=== PATIENT | female | born 2000 | race Caucasian/White ===

== ENCOUNTER 2024-04-21 07:40 | Inpatient (IN) ==
[2024-04-21] MEDS ORDERED: OXYTOCIN 30 UNITS/NSS 30 UNITS/500 ML BAG IV PRN (08:21)
[2024-04-21] MEDS ORDERED: CALCIUM CARBONATE 500 MG CHEWABLE TAB PO PRN (08:21)
--- OUTSIDE RECORDS SUMMARY | 2024-04-21 08:45 | External Medical Summary | Summary of Care ---
Author Name Unknown Organization [facility] Address [address] [facility] [address] Phone [phone] Care Team Providers Care Legal Associate Name Role Phone Patricia Ta DO Primary Care Provider +1- [phone] Reason for Visit * Reason Comments Blood Pressure Check Encounter Details Date Type Department Care Team (Late st Contact Info) Description 04/07/2024 3:00 PM EST Nurse Only Gynecology/Obstetrics [facility] [address] [facility] [place] [address] Gw, Nurse Obgyn Injection [address] [facility] [place] [address] Blood Pressure Check Allergies No known active allergiesdocumented as of this encounter (statuses as of 04/07/2024) Medications doxylamine 12.5 MG OR TABS Take 0.5 Tablets by mouth at bedtime as needed. Active Vitamin and Mineral 28-0.8 MG Oral Tablet Take 1 Tablet by mouth every morning. Active Breast PumpIndications:B reast feeding status of mother Use as directed. 1 Each 4 Active Citalopram Hydrobromide 10 MG Oral Tablet (CeleXA) Take 1 Tablet by mouth in the morning. 30 Tablet 2 4 Active documented as of this encounter (statuses as of 04/07/2024) Active Problems Problem Noted Date Diagnosed Date Polyhydramnios in third trimester 03/18/2024 Overview (03/18/2024): Mild poly at 34 weeks. LORRAINE 24.7 cm. M ask-a-doc recommendations: In non-diabetic patients, re-screen for GDM if not done within the previous 4 weeks. Recommend ultrasound in 4 weeks for assessment of growth and fluid for mild polyhydramnios (would do weekly BPP if moderate or severe polyhydramnios). Consider delivery at 39 weeks if polyhydramnios persists. Normal 03/16/2024 Obesity in , antepartum 03/16/2024 Overview (03/16/2024): Class 1 Anxiety during 03/16/2024 Abnormal glucose tolerance in mother complicatin g 01/27/2024 Overview (02/01/2024): Passed 3 hr glucose at 27w4d Marijuana use during 09/22/2023 Overview (09/22/2023): Screen positive at [facility]. NANCY (generalized anxiety disorder) 11/17/2016 Estimated Date of Delivery Comme nts Yes 04/28/2024 Based on last me nstrual period of 07/23/2023 (Exact Date) documented as of this encounter (statuses as of 04/07/2024) Resolved Problems Problem Noted Date Diagnosed Date Resolved Date Heroin abuse 02/27/2021 05/12/2022 Depression 05/16/2020 05/12/2022 Supervision of normal first 05/16/2020 05/16/2020 Tobacco use disorder 05/16/2020 023 Migraine 08/06/2011 05/12/2022 Allergic rhinitis 05/12/2022 Celiac disease 05/12/2022 documented as of this encounter (statuses as of 04/07/2024) Immunizations Name Administration Dates Next Due DTaP Dipth/Tet/Acell Pertussis (Infanrix), Peds 11/13/2005,05/14/2000,07/18/1999,05/16,03/14/1999 H1N1 2009 Influenza, IM 02/13/2009 H1N1 2009 Influenza, Intranasal 02/13/2009 HIB PRP-OMP, 3 dose (Pedvax) 12/19/1999,05/16/19 00,03/21/1999 Hepatitis B, 0-19 yrs 05/14/2000,05/16/1999,1205/1998 IPV - Polio Virus Vaccine (Inact) 2005,05/14/2000,05/16/1999,03/14 Influenza Vaccine, Live, Int ranasal, Trivalent (Flumist) 12/24/2011,02/12/2011,02/05/2010,02/05,01/28/2008,04/08/2006 MMR - Measles/Mumps/Rubella Vaccine 05/18/2003,0 12/19/1999 Meningococcal Conjugate Vacc ine (Menactra/Menveo) 02/05/2010,02/05/2010 PPD 06/01/2023, 7,11/26/2016,11/18,11/18/2016,05/28/2015,05/28/2015 RSV Vac., Bivalent, Perfusio n F, Pf,0.5 Ml (Abrysvo) 03/31/2024 Seasonal Influenza Virus Vac cine, Unspecified Formulation 01/14/2017,03/15/2015,12/24/2011,02/12,02/05/2010,02/05/2009,01/28/2008 ,04/08/2006 Seasonal Influenza, PF, 6 M & above, IM , (FluLaval or Fluzone) 01/14/2017 Seasonal Influenza, Quad, Na lorne (Flumist) 03/15/2015 Seasonal Influenza, Trivalen t, (IIV3), PF, (Fluzone) 01/01/2024 TDAP (age 10 and older)(Boostrix) 08/06/2023, TDAP, Age 7 and older, IM (Adacel) 02/11/2024, Varicella Vaccine (Chicken Pox) 02/05/2010,02/05,12/19/1999 documented as of this encounter Social History Tobacco Use Types Packs/Day Years Used Date Smoking Tobacco: Former Cigarettes Q uit: 2021 Smokeless Tobacco: Never Comments:1 cig/day Alcohol Use Standard Drinks/Week Comments No 0 (1 standard drink = 0.6 oz pur e alcohol) PHQ-2 Answer Date Recorded PHQ Adult Total Score 4 03/28/2024 Hunger Vital Sign Answer Date Recorded Within the past 12 months, y ou worried that your food would run out before you got the money to buy more. Never true 11/27/19 24 Within the past 12 months, t he food you bought just didn't last and you didn't have money to get more. Never true 11/27/2023 [place] Depression Scale Answer Date Recorded [place] Depression Scale Total 5 03/16/2024 The thought of harming myself has occurred to me . Never 03/16/2024 Childcare Answer Date Recorded Do you feel overwhelmed with taking care of a child, family member or friend? No 11/27/2023 Does your family need help f inding childcare? (Household - for ages 0-17 years) Not on file 11/27/2023 Clothing Answer Date Recorded Have you been unable to get clothing when it was really needed? No 11/27/2023 Is your family able to get c lothes or diapers when needed? (Household - for ages 0-17 years) Not on file 11/27/2023 Personal Safety Answer Date Recorded Do you feel unsafe or have concerns for your saf ety? No 11/27/2023 Do you have concerns for you r family's safety? (Household - for ages 0-17 years) Not on file 11/27/2023 Utilities Answer Date Recorded Do you have trouble paying y our heating, water, or electric bill? No 11/27/2023 Is your family able to pay t he heat, water, or electric bill? (Household - for ages 0-17 years) Not on file 11/27/2023 Does your family have access to good internet? (Household - for ages 0-17 years) Not on file 11/27/2023 Employment Status Answer Date Recorded Are you unemployed or without regular income? Ye s 11/27/2023 Does the household have a re gular source of income? (Household - for ages 0-17 years) Not on file 11/27/2023 Social Connections Answer Date Recorded How often do you feel lonely or isolated from th ose around you? Never 11/27/2023 Financial Resource Strain Answer Date R ecorded Do you have any trouble payi ng for your medications, or do you think you might in the future? No 11/27/2023 Does your family have troubl e paying for medicine? (Household - for ages 0-17 years) Not on file 11/27/2023 Transportation Needs Answer Date Record ed READ ONLY Do you have troubl e getting a ride to medical visits or work? Never True 11/27/2023 Does your family have a hard time getting a ride to doctors visits? (Household - for ages 0-17 years) Not on file 11/27/2023 Has lack of transportation k ept you from medical appointments, meetings, work, or from getting things needed for daily living? Check all that apply. No 11/27/2023 Do you (or your family) have trouble finding or paying for a ride (transportation)? (Household - for ages 0-17 years) Not on file 11/27/2023 Housing Stability Answer Date Recorded Do you currently live in a s helter or have no steady place to sleep at night? No 11/27/2023 READ ONLY Do you think you a re at risk of becoming homeless? No 11/27/2023 Does your family worry about paying for your home or becoming homeless? (Household - for ages 0-17 years) Not on file 0 11/27/2023 Are you homeless or worried that you might be in the future? No 11/27/2023 Are you (or your family) radha eless or worried that you might be in the future? (Household - for ages 0-17 years) Not on file Food Insecurity Answer Date Recorded Do you need food for this week? No 11/27/2023 Are you able to get enough f ood for your family? (Household - for ages 0-17 years) Not on file 11/27/2023 Does your family need food t his week? (Household - for ages 0-17 years) Not on file 11/27/2023 Do you always have enough fo od for your family? (Household - for ages 0-17 years) Not on file 11/27/2023 Education Answer Date Recorded What is the highest level of school you have completed or the highest degree you have received? 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 Patient's BP was normal and urine dip negative for protein. Having some swelling today in bilaterally LE, has been at work all day and wearing compression stockings. Patient states swelling improved since last night. Denies RUIZ, RUQ pain, or visual changes. +FM Advised patient to continue pushing fluids, drinking atleast 120oz of water and monitoring symptoms. If any changes patient is to call triage. Will send message to oncall provider for additional recommendations. Gwendolyn Tamayo RN documented in this encounter Plan of Treatment Upcoming Encounters Date Type Department Care Team (Late st Contact Info) Description 04/14/2024 1:15 PM EST Imaging Radiology [facility] [address] [facility] [address] [facility] [place] [address] 04/14/2024 2:00 PM EST Office Visit Gynecology/Obstetrics [facility] [address] [facility] [place] [address] Shavonne Hensley PA-C [address] [place] [address] 05/16/2024 2:00 PM EST Telemedicine Psychiatry [facility], [address] [place] [address] Clifford Calabrese MD [address] [place] [address] 06/06/2024 5:40 PM EST Office Visit Family Practice [address], [place] [address] [place] [address] Patricia Ta DO [address] [place] [address] Scheduled Orders Name Type Priority Associated Diagnoses Order Schedule URINALYSIS OBSTETRICS, POINT OF CARE Point of Care Testing - Unsolicited Results Routine BP check Ordered: 04/07/2024 Health Maintenance Due Date Last Done Comments HPV (Gardasil) Vaccine (1 - 3-dose series) 2013 COVID-19 Vaccine ( season) 2023 Depression Screening 03/28/2025 03/28/2024 Pap Smear 06/23/2025 06/23/2022 DTap/Tdap Vaccines (10 - Td or Tdap) 02/10/2034 02/11/2024, 08/06/2023, 02/05/2010, Additional history exists MENINGOCOCCAL (MENACTRA/MENVEO) Aged Out 02/05/2010, 02/05/2010 No longer eligibl e based on patient's age to complete this topic Gonorrhea / Chlamydia Screen Discontinued 09/18/2023, 08/18/2023, 06/23/2022, Additional history exists Influenza Vaccine (FLU shot) Completed 01/01/2024, 01/14/2017, 01/14/2017, Additional history exists Pneumococcal Vaccine: Pediatrics (0 to 5 Years) and At-Risk Patients (6 to 18 Years and 19+ Years) Aged Out No longer eligib le based on patient's age to complete this topic documented as of this encounter Medical Devices Not on filedocumented as of this encounter Visit Diagnoses Diagnosis BP check- Primary Screening for hypertension documented in this encounter Care Teams Legal Associate Relationship Specialty Start Date End Date Patricia Ta DO [address] [facility] [place] [address] PCP - General Family Medicine 05/12/22 documented as of this encounter
--- OUTSIDE RECORDS SUMMARY | 2024-04-21 08:45 | External Medical Summary | Summary of Care ---
Author Name Unknown Organization [facility] Address [address] [facility] [address] Phone [phone] Care Team Providers Care Shot Grinder Operator Name Role Phone Patricia Ta DO Primary Care Provider +1- [phone] Reason for Visit * Reason Comments Outpatient Testing Encounter Details Date Type Department Care Team (Late st Contact Info) Description 04/20/2024 11:10 AM EST Laboratory Laboratory, [facility] [address] [place] [address] [facility] [address] [place] [address] Polyhydramnios in third trimester complication, single or unspecified fetus Allergies No known active allergiesdocumented as of this encounter (statuses as of 04/20/2024) Medications doxylamine 12.5 MG OR TABS Take [...] as of this encounter (statuses as of 04/20/2024) Active Problems Problem Noted Date Diagnosed Date Polyhydramnios in third trimester 03/18/2024 Overview (03/18/2024): Mild poly at 34 weeks. LORRAINE 24.7 cm. 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 Never true 11/27/2023 [place] Depression Scale Answer Date Recorded [place] Depression Scale Total 5 03/16/2024 The thought [...] 11/27/2023 Transportation Needs Answer Date Record ed Do you have trouble getting a ride to medical visits or work? (Adult - for ages 18 years and over) Not on file 11/27/2023 Does your family have a hard [...] place to sleep at night? No 11/27/2023 Do you think you are at risk of becoming homeless? 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 [place] [id number] Clifford Calabrese MD [address] [facility] [place] [address] 06/06/2024 5:40 PM EST [facility] [address] [place] [address] Patricia Ta DO [address] [place] [address] Pending Results Name Type Priority Associated Diagnoses Date /Time HEMOGLOBIN A1C Lab Routine Polyhydramnios in third trimester complication, single or unspecified fetus 04/20/2024 11:04 AM EST Health Maintenance Due Date Last Done Comments [...] as of this encounter Visit Diagnoses Diagnosis Polyhydramnios in third trimester complication, single or unspecified fetus documented in this encounter Care Teams Shot Grinder Operator Relationship Specialty Start Date End Date Patricia Ta DO [address] [facility] [place] [address] PCP - General Family Medicine 05/12/22 documented as of this encounter
--- OUTSIDE RECORDS SUMMARY | 2024-04-21 08:45 | External Medical Summary ---
Author Name Unknown Address Unknown Organization K01:[facility] [address] [place] [address] Laboratory Report Ordering Provider Test Date Status DIAMOND GRAVES 04/20/2024 11:04:20 Final Observation Date Value Abnormality Reference (Units ) Status HbA1C 04/20/2024 11:04:20 5.1 4.0-5.6 (% ) Final The use of HbA1c to monitor glycemic status is based on normal hemoglobin and HbA composition. This test should not be used in patients with abnormal hemoglobin that affects the half life of the red blood cell or the in vivo glycation rates. Glucose, estimated average 04/20/2024 11:04:20 100 <126 (mg/dL) Final Performing Location [facility] [address] [place] [address]
--- OUTSIDE RECORDS SUMMARY | 2024-04-21 08:45 | External Medical Summary | Summary of Care ---
Author Name Unknown Organization [facility] Address [address] [place] [address] Phone [phone] Care Team Providers Care Lease Analyst Name Role Phone Patricia Ta DO Primary Care Provider +1- [phone] Reason for Visit * Reason Comments Return Visit Encounter Details Date Type Department Care Team (Late st Contact Info) Description 04/14/2024 2:00 PM EST Office Visit Gynecology/Obstetric s [facility] [address] [place] [address] Shavonne Hensley PA-C [address] [place] [address] Normal in third trimester*; Marijuana use during ; Obesity in , antepartum; Anxiety during ; Polyhydramnios in third trimester complication, single or unspecified fetus; Abnormal glucose tolerance in mother complicating Allergies No known active allergiesdocumented as of this encounter (statuses as of 04/14/2024) Medications doxylamine 12.5 MG OR TABS Take 0.5 Tablets by mouth at bedtime as needed. Active Vitamin and Mineral 28-0.8 MG Oral Tablet Take 1 Tablet by mouth every morning. Active Breast PumpIndications:B reast feeding status of mother Use as directed. 1 Each 4 Active Citalopram Hydrobromide 10 MG Oral Tablet (CeleXA) Take 1 Tablet by mouth in the morning. 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/27/2021 05/12/2022 Depression 05/16/2020 05/12/2022 Supervision of normal first 05/16/2020 05/16/2020 Tobacco use disorder 05/16/2020 023 Migraine 08/06/2011 05/12/2022 Allergic rhinitis 05/12/2022 Celiac disease 05/12/2022 documented as of this encounter (statuses as of 04/14/2024) Immunizations Name Administration Dates Next Due DTaP Dipth/Tet/Acell Pertussis (Infanrix), Peds 11/13/2005,05/14/2000,07/18/1999,05/16,03/14/1999 H1N1 2009 Influenza, IM 02/13/2009 H1N1 2009 Influenza, Intranasal 02/13/2009 HIB PRP-OMP, 3 dose (Pedvax) 12/19/1999,05/16/19 00,03/21/1999 Hepatitis B, 0-19 yrs 05/14/2000,05/16/1999,1998 IPV - Polio Virus Vaccine (Inact) 2005,05/14/2000,05/16/1999,03/14 [...] money to get more. 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 on file documented as of this encounter Last Filed Vital Signs Vital Sign Reading Time Taken Comments Blood Pressure 112/72 04/14/2024 1:36 PM EST Pulse - - Temperature - - Respiratory Rate - - Oxygen Saturation - - Inhaled Oxygen Concentration - - Weight 90 kg (198 lb 6.4 oz) 04/14/2024 1:36 PM EST Height - - Body Mass Index 38.75 04/04/2024 11:50 AM EST documented in this encounter Progress Notes * Shavonne Hensley PA-C - 04/14/2024 2:00 PM EST Jesi Coleman is a 23 year old female here for her routine OB appointment at 38w0d Her Estimated Date of Delivery: 04/28/24 REVIEW OF SYSTEMS She affirms movement. Denies vaginal bleeding, LOF, contractions. + lower back pain that has woken her up from sleep at time. No regular or timeable contractions. Pain does resolve after some time. PHYSICAL EXAM Filed Vitals: 04/14/24 1336 BP: 112/72 Weight: 90 kg (198 lb 6.4 oz) +FHT 130s Fundal height 39 cm CE: 0-1cm/10%/-3 Blog Writer Documentation Patient offered deployment engineer and accepted. Name of deployment engineer: Karely Kiser CMA. ASSESSMENT/PLAN Normal in third trimester (Primary) Marijuana use during Obesity in , antepartum Anxiety during Polyhydramnios in third trimester complication, single or unspecified fetus - HEMOGLOBIN A1C; Future; Expected date: 04/14/2024 - U/S completed today for follow-up on mild polyhydramnios. Showing persistent poly with LORRAINE at 23.6 cm (95%tile), MVP 7.5 cm. - [facility] delivery 39th week if persisting. Patient agreeable. - IOL scheduled 04/21/2024 at 39w0d for polyhydramnios. - Strict return precautions given. Risks of polyhydramnios discussed. Patient has triage phone number. Abnormal glucose tolerance in mother complicating Supervision of - labor precautions and kick counts reviewed RTO for MAJO in 6 days prior to IOL Shavonne Hensley PA-C 04/14/2024 * Karely Kiser CMA - 04/14/2024 1:36 PM EST 38w0d LORRAINE: 23.6 Possible contractions starting at lower back and radiated to the front. Woken up from sleep. Requesting cervical check today documented in this encounter Plan of Treatment Upcoming Encounters Date Type Department Care Team (Late st Contact Info) Description 05/16/2024 2:00 PM EST Telemedicine Psychiatry [address] [place] [address] Clifford Calabrese MD [address] [place] [address] [place] [address] 06/06/2024 5:40 PM EST Office Visit Family Practice [place] [address] [place] [address] Patricia Ta DO [address] [place] [address] Scheduled Orders Name Type Priority Associated Diagnoses Orde r Schedule HEMOGLOBIN A1C Lab Routine Polyhydramnios in third trimester complication, single or unspecified fetus Expected: 04/14/2024 (Approximate), Expires: 04/14/2025 Health Maintenance Due Date Last Done Comments [...] as of this encounter Visit Diagnoses Diagnosis Normal in third trimester- Primary Marijuana use during Obesity in , antepartum Obesity complicating , childbirth, or the puerperium, antepartum condition or complication Anxiety during Polyhydramnios in third trimester complication, single or unspecified fetus Abnormal glucose tolerance in mother complicating Abnormal maternal glucose tolerance, complicating , childbirth, or the puerperium, unspecified as to episode of care documented in this encounter Care Teams Lease Analyst Relationship Specialty Start Date End Date Patricia Ta DO [address] [facility] [place] [address] PCP - General Family Medicine 05/12/22 documented as of this encounter
--- OUTSIDE RECORDS SUMMARY | 2024-04-21 08:45 | External Medical Summary | Summary of Care ---
Author Name Unknown Organization [facility] Address [address] [facility] [place] [address] Phone [phone] Care Team Providers Care Account Developer Name Role Phone Patricia Ta DO Primary Care Provider +1- [phone] Reason for Visit * Reason Comments Return Visit Encounter Details Date Type Department Care Team (Late st Contact Info) Description 04/20/2024 10:45 AM EST Office Visit Gynecology/Obstetric s Thom Bonilla [address] [place] [address] Pretty Younger CRNP [address] [place] [address] Normal in third trimester*; Marijuana use during ; Abnormal glucose tolerance in mother complicating ; Obesity in , antepartum; Anxiety during [...] money to get more. 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 Normal movement. Induction scheduled for tomorrow. Wants acervical check, unable to tolerate exam. Discussed what to expect with IOL. Lathe Spotter Documentation Provider requested land acquisition specialist. Name of land acquisition specialist: ABDIFATAH Mcknight * Jacquie Dimas LPN - 04/20/2024 10:42 AM EST 38w6d Denies vaginal bleeding/rom + movement No new concerns Requesting cervical check documented in this encounter Plan of Treatment Upcoming Encounters Date Type Department Care Team (Latest Contact Info) Description 04/20/2024 11:10 AM EST Laboratory Laboratory, [facility] [address] [place] [phone] Sammy Bonilla [address] [place] [address] Polyhydramnios in third trimester complication, single or unspecified fetus 05/16/2024 2:00 PM EST Telemedicine Psychiatry [facility]ul [facility] [place] [address] [facility]. [place] [address] Clifford Calabrese MD [address] [place] [address] 06/06/2024 5:40 PM EST Office Visit Family Practice [facility] [place] [address] [place] [address] Patricia Ta DO [address] [place] [address] Health Maintenance Due Date Last Done Comments HPV (Gardasil) Vaccine (1 - 3-dose series) 2013 COVID-19 Vaccine ( - 2023- season) 2023 Depression Screening 03/28/2025 03/28/2024 Pap [...] in third trimester- Primary Marijuana use during Abnormal glucose tolerance in mother complicating Abnormal maternal glucose tolerance, complicating , childbirth, or the puerperium, unspecified as to episode of care Obesity in , antepartum Obesity complicating , childbirth, or the puerperium, antepartum condition or complication Anxiety during Polyhydramnios in third trimester complication, single or unspecified fetus Polyhydramnios in third trimester complication, single or unspecified fetus documented in this encounter Care Teams Account Developer Relationship Specialty Start Date End Date Patricia Ta DO [facility] [place] [address] PCP - General Family Medicine 05/12/22 documented as of this encounter
--- OUTSIDE RECORDS SUMMARY | 2024-04-21 08:46 | External Medical Summary ---
Author Name Unknown Address Unknown Organization K01:[facility] [place] [address] [place] [address] Laboratory Report Ordering Provider Test Date Status SUZAN RYAN 03/18/2024 11:26:07 Final Observation Date Value Abnormality Reference (Units ) Status Glucose [Mass/volume] in Serum or Plasma --3 hours post dose glucose 03/18/2024 11:26:07 111 70-139 (mg/dL) Final Performing Location [facility] [place] [address] [place] [address]
--- OUTSIDE RECORDS SUMMARY | 2024-04-21 08:46 | External Medical Summary | Summary of Care ---
Author Name Unknown Organization [facility] Address [address] [facility] [place] [address] Phone [phone] Care Team Providers Care Fur Operator Name Role Phone Patricia Ta DO Primary Care Provider +1- [phone] Encounter Details Date Type Department Care Team (Late st Contact Info) Description 04/04/2024 Telephone [facility] [address] [place] [address] Zena Nicole PA-C [address] [place] [address] Allergies No known active allergiesdocumented as of [...] (Pedvax) 12/19/1999,05/16/19 00,03/21/1999 Hepatitis B, 0-19 yrs 05/14/2000,05/16/1999,05/1998 IPV - Polio Virus Vaccine (Inact) 2005,05/14/2000,05/16/1999,03/14 [...] money to get more. 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 Patient's BP was normal and urine dip negative for protein. Having some swelling today in bilaterally LE, has been at work all day and wearing compression stockings. Patient states swelling improved since last night. And RUIZ improved. Denies RUIZ, RUQ pain, or visual changes. +FM No other concerns. Advised patient to increase fluids, rest and elevate LE when able, monitor symptoms and call with any changes. She verbalized understanding. Please advise further if needed. * Telephone Encounter - Zena Nicole PA-C - 04/04/2024 12:00 PM EST Please call patient to schedule MAJO and ultrasound (2nd floor if able) for 04/14 or 04/15/24 per patient request. Thank you, Zena Nicole PA-C documented in this encounter Plan of Treatment Upcoming Encounters Date Type Department Care Team (Late st Contact Info) Description 04/07/2024 3:00 PM EST Nurse Only Gynecology/Obstetric [address] [place] [address] Gw, Nurse Obgyn Injection [address] [place] [address] Blood Pressure Check 04/14/2024 1:15 PM EST Imaging Radiology [facility] 2nd Floor, [place] [address] [place] [address] 04/14/2024 2:00 PM EST Office Visit Gynecology/Obstetric s [facility] [address] [place] [address] Shavonne Hensley PA-C [address] [place] [address] 05/16/2024 2:00 PM EST Telemedicine Psychiatry [address] [place] [address] Clifford Calabrese MD 9 [facility] [place] [address] 06/06/2024 5:40 PM EST Office Visit Family Practice [facility] [place] [address] [facility] [place] [address] Patricia aT DO [address] [place] [address] Health Maintenance Due Date Last Done Comments HPV (Gardasil) Vaccine (1 - 3-dose series) 2013 COVID-19 Vaccine (2023- season) 2023 Depression Screening 03/28/2025 03/28/2024 Pap [...] Not on filedocumented as of this encounter Care Teams Fur Operator Relationship Specialty Start Date End Date Patricia Ta DO [address] [facility] [place] [address] PCP - General Family Medicine 05/12/22 documented as of this encounter
--- OUTSIDE RECORDS SUMMARY | 2024-04-21 08:46 | External Medical Summary | Summary of Care ---
Author Name Unknown Organization [facility] Address [address] [facility] [place] [address] Phone [phone] Care Team Providers Care Beck Tender Name Role Phone Patricia Ta DO Primary Care Provider +1- [phone] Encounter Details Date Type Department Care Team (Late st Contact Info) Description 04/04/2024 Telephone [facility] [address] [place] [address] Zena Nicole PA-C [address] [place] [address] Allergies No known active allergiesdocumented as of this encounter (statuses as of 04/04/2024) Medications doxylamine 12.5 MG OR TABS Take [...] as of this encounter (statuses as of 04/04/2024) Active Problems Problem Noted Date Diagnosed Date [...] as of this encounter (statuses as of 04/04/2024) Resolved Problems Problem Noted Date Diagnosed Date Resolved Date 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 Thank you, Zena Nicole PA-C documented in this encounter Plan of Treatment Upcoming Encounters Date Type Department Care Team (Late st Contact Info) Description 04/14/2024 1:15 PM EST Imaging Radiology [facility] 2nd [facility] [address] [facility] [place] [address] 04/14/2024 2:00 PM EST Office Visit Gynecology/Obstetrics [facility] 132 [facility] [place] [address] Shavonne Hensley PA-C 132 [facility] [place] [address] 05/16/2024 2:00 PM EST Telemedicine Psychiatry [facility], [address] [place] [phone] Clifford Calabrese MD 9 [facility] [place] [phone] 06/06/2024 5:40 PM EST Office Visit [facility] [place] [address] [place] [address] Patricia Ta DO [address] [place] [address] Health Maintenance Due Date Last Done Comments [...] 5 Years) and At-Risk Patients (6 to 64 Years) Aged Out No longer eligible based on patient's age to complete this topic documented as of this encounter Medical Devices Not on filedocumented as of this encounter Care Teams Beck Tender Relationship Specialty Start Date End Date Patricia Ta DO [address] [place] [address] PCP - General Family Medicine 05/12/22 documented as of this encounter
--- OUTSIDE RECORDS SUMMARY | 2024-04-21 08:46 | External Medical Summary | Summary of Care ---
Author Name Unknown Organization [facility] Address [address] [facility] [place] [address] Phone [phone] Care Team Providers Care Crusher Name Role Phone Patricia Ta DO Primary Care Provider +1- [phone] Encounter Details Date Type Department Care Team (Late st Contact Info) Description 04/04/2024 Telephone [facility] [address] [place] [address] Zena Nicole PA-C [address] [place] [address] Allergies No known active allergiesdocumented as of [...] money to get more. 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, [address] [place] [phone] Clifford Calabrese MD 9 [facility] [place] [address] 06/06/2024 5:40 PM EST Office Visit [facility] [place] [address] [place] [address] Patricia Ta DO [address] [place] [address] Health Maintenance Due Date Last Done Comments [...] filedocumented as of this encounter Care Teams Crusher Relationship Specialty Start Date End Date Patricia Ta DO [address] [place] [address] PCP - General Family Medicine 05/12/22 documented as of this encounter
--- OUTSIDE RECORDS SUMMARY | 2024-04-21 08:46 | External Medical Summary ---
Author Name Unknown Address Unknown Organization K01:[facility] [place] [facility] [address] [place] [address] Laboratory Report Ordering Provider Test Date Status MAHOGANY WALSH 03/31/2024 11:25:46 Final Observation Date Value Abnormality Reference (Units ) Status Streptococcus agalactiae DNA [Presence] in Specimen by FELIZ with probe detection 03/31/2024 11:25:46 Negative Negative Final No Group B Streptococcus det ected by culture-enhanced PCR (amplified probe). GBS GBSCT - [facility] 03/31/2024 11:25:46 0.0 Final GBS SPCCT - [facility] 03/31/2024 11:25:46 31.2 Final Performing Location [facility] [place] [address] [place] [address]
--- OUTSIDE RECORDS SUMMARY | 2024-04-21 08:46 | External Medical Summary | Summary of Care ---
Author Name Unknown Organization [facility] Address [address] [place] [address] Phone [phone] Care Team Providers Care Lamination Spinner Name Role Phone Patricia Ta DO Primary Care Provider +1- [phone] Reason for Visit * Reason Comments Outpatient Testing Encounter Details Date Type Department Care Team ([facility] st Contact Info) Description 03/18/2024 8:00 AM EST Laboratory Laboratory [facility] [place] [address] [facility] [place] [phone] [place], Lab [facility] [address] [place] [address] Polyhydramnios in third trimester complication, fetus 1 of multiple gestation Allergies No known active allergiesdocumented as of this encounter (statuses as of 03/18/2024) Medications Vitamin B-6 25 MG Oral Tablet Take 1 Tablet by mouth in the morning. Active doxylamine 12.5 MG OR TABS Take 0.5 Tablets by mouth at bedtime as needed. Active Vitamin and Mineral 28-0.8 MG Oral Tablet Take 1 Tablet by mouth every morning. Active Citalopram Hydrobromide 10 MG Oral Tablet (CeleXA) Take 1 Tablet by mouth in the morning. 30 Tablet 2 4 Active Breast PumpIndications:B reast feeding status of mother Use as directed. 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 05/12/2022 Depression 05/16/2020 05/12/2022 Supervision of normal first 05/16/2020 05/16/2020 Tobacco use disorder 05/16/2020 023 Migraine 08/06/2011 05/12/2022 Allergic rhinitis 05/12/2022 Celiac disease 05/12/2022 documented as of this encounter (statuses as of 03/18/2024) Immunizations Name Administration Dates Next Due DTaP [...] Vacc ine (Menactra/Menveo) 02/05/2010,02/05/2010 PPD 06/01/2023, 7,11/26/2016,11/18,11/18/2016,05/28/2015,05/28/2015 Seasonal Influenza Virus Vac cine, Unspecified Formulation [...] Answer Date Recorded PHQ Adult Total Score 6 04/17/2023 Hunger Vital Sign Answer Date Recorded Within the past 12 months, y ou worried that your food would run out before you got the money to buy more. Never true 11/27/19 24 Within the past 12 months, t he food you bought just didn't last and you didn't have money to get more. 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 documented as of this encounter Plan of Treatment Upcoming Encounters Date Type Department Care Team (Late st Contact Info) Description 03/28/2024 12:00 PM EST Telemedicine Psychiatry [place] [address] [place] [phone] Clifford Calabrese MD [address] [place] [phone] 03/31/2024 10:45 AM EST Office Visit Gynecology/Obstetrics [facility] [address] [place] [address] Jose Alejandro Perez MD [address] [place] [address] 04/04/2024 11:45 AM EST Office Visit Gynecology/Obstetrics [facility] [address] [place] [address] Zena Nicole PA-C [address] [place] [address] 06/06/2024 5:40 PM EST Office Visit Family Practice [place] [address] [place] [address] Patricia Ta DO [address] [place] [address] Pending Results Name Type Priority Associated Diagnoses Date /Time GESTATIONAL GLUCOSE TOLERANCE, 3 HOUR Lab Routine Polyhydramnios in third trimester complication, fetus 1 of multiple gestation 03/18/2024 8:25 AM EST 100-G GESTATIONAL GLUCOSE, FASTING Lab Routine Polyhydramnios in third trimester complication, fetus 1 of multiple gestation 03/18/2024 8:25 AM EST 100-G GESTATIONAL GLUCOSE, 1 HOUR Lab Routine Polyhydramnios in third trimester complication, fetus 1 of multiple gestation 03/18/2024 9:26 AM EST 100-G GESTATIONAL GLUCOSE, 2 HOUR Lab Routine Polyhydramnios in third trimester complication, fetus 1 of multiple gestation 03/18/2024 10:31 AM EST 100-G GESTATIONAL GLUCOSE, 3 HOUR Lab Routine Polyhydramnios in third trimester complication, fetus 1 of multiple gestation 03/18/2024 11:26 AM EST Health Maintenance Due Date Last Done Comments HPV (Gardasil) Vaccine (1 - 3-dose series) 2013 COVID-19 Vaccine ( season) 2023 Depression Screening 04/17/2024 04/17/2023 Pap Smear 06/23/2025 06/23/2022 DTap/Tdap Vaccines (10 [...] Diagnoses Diagnosis Polyhydramnios in third trimester complication, fetus 1 of multiple gestation documented in this encounter Care Teams Lamination Spinner Relationship Specialty Start Date End Date Patricia Ta DO [address] [facility] [place] [address] PCP - General Family Medicine 05/12/22 documented as of this encounter
--- OUTSIDE RECORDS SUMMARY | 2024-04-21 08:46 | External Medical Summary | Summary of Care ---
Author Name Unknown Organization [facility] Address [address] [place] [address] Phone [phone] Care Team Providers Care Differential Tester Name Role Phone Patricia Ta DO Primary Care Provider +1- [phone] Reason for Visit * Reason Comments Return Visit Encounter Details Date Type Department Care Team (Late st Contact Info) Description 03/31/2024 10:45 AM EST Office Visit Gynecology/Obstetric [facility] [address] [place] [address] Jose Alejandro Perez MD [address] [place] [phone] Marijuana use during *; Abnormal glucose tolerance in mother complicating ; Normal in third trimester; Obesity in , antepartum; Anxiety during ; Polyhydramnios in third trimester complication, single or unspecified fetus; Need for RSV immunization Allergies No known active allergiesdocumented as of this encounter (statuses as of 03/31/2024) Medications doxylamine 12.5 MG OR TABS Take 0.5 Tablets by mouth at bedtime as needed. Active Vitamin and Mineral 28-0.8 MG Oral Tablet Take 1 Tablet by mouth every morning. Active Breast PumpIndications:B reast feeding status of mother Use as directed. 1 Each Active Citalopram Hydrobromide 10 MG Oral Tablet (CeleXA) Take 1 Tablet by mouth in the morning. 30 Tablet 2 Active Vitamin B-6 25 MG Oral Tablet Take 1 Tablet by mouth in the morning. 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 Patient underwent vaginal beta strep screening. Patient also had pelvic exam. This revealed vertex presentation. Minus one station. Cervix was posterior and closed. Patient is feeling good movement without any complaints. documented in this encounter Nursing Notes * Jacquie Dimas LPN - 03/31/2024 11:19 AM EST Patient here for RSV injection. Patient doing well no complaints. Injection given IM as ordered. Patient tolerated well. Patient to follow up as directed. Patient instructed to call if any complications. Patient verbalized understanding of instructions given and her follow up appt for 1 week Injection site: Left Deltoid Medication Source: Dispensed stock medication documented in this encounter Plan of Treatment Upcoming Encounters Date Type Department Care Team (Late st Contact Info) Description 04/04/2024 11:45 AM EST Office Visit Gynecology/Obstetrics [facility] [address] [place] [address] Zena Nicole PA-C [address] [place] [address] 05/16/2024 2:00 PM EST Telemedicine Psychiatry [facility] [address] [place] [phone] Clifford Calabrese MD [address] [place] [phone] 06/06/2024 5:40 PM EST [facility] [facility] [place] [phone] Patricia Ta DO [address] [place] [address] Pending Results Name Type Priority Associated Diagnoses Date /Time GROUP B STREP CULTURE/PCR Lab Routine Normal in third trimester 03/31/2024 11:25 AM EST Health Maintenance Due Date Last [...] as of this encounter Visit Diagnoses Diagnosis Marijuana use during - Primary Abnormal glucose tolerance in mother complicating Abnormal maternal glucose tolerance, complicating , childbirth, or the puerperium, unspecified as to episode of care Normal in third trimester Obesity in , antepartum Obesity complicating , childbirth, or the puerperium, antepartum condition or complication Anxiety during Polyhydramnios in third trimester complication, single or unspecified fetus Need for RSV immunization Need for prophylactic vaccination and inoculation against respiratory syncytial virus documented in this encounter Care Teams Differential Tester Relationship Specialty Start Date End Date Patricia Ta DO [address] [facility] [place] [address] PCP - General Family Medicine 05/12/22 documented as of this encounter
--- OUTSIDE RECORDS SUMMARY | 2024-04-21 08:46 | External Medical Summary | Summary of Care ---
Author Name Unknown Organization [facility] Address [address] [place] [address] Phone [phone] Care Team Providers Care Auto Adjudication Specialist Name Role Phone Patricia Ta DO Primary Care Provider [phone] Reason for Visit * - Authorized Specialty Diagnoses / Procedures Referred By Contumesh t Referred To Contact Referral ID Status Reason Start Date Expiration Date V isits Requested Visits Authorized [id number] Authorized 01/12/2024 01/10/2025 [id number] Encounter Details Date Type Department Care Team (Late st Contact Info) Description 03/28/2024 12:00 PM EST Telemedicine Psychiatry [facility] [place] [address] [place] [address] Clifford Calabrese MD [address] [place] [address] CHARLES (generalized anxiety disorder)*; Opioid dependence in remission (HCC); Methamphetamine use disorder, mild, in sustained remission (HCC); 35 weeks gestation of Allergies No known active allergiesdocumented as of this encounter (statuses as of 03/28/2024) Medications Vitamin B-6 25 MG Oral Tablet [...] the morning. 30 Tablet 2 4 Active Citalopram Hydrobromide 10 MG Oral Tablet (CeleXA) Take 1 Tablet by mouth in the morning. 30 Tablet 2 4 03/28/20 24 Discontinu ed(Refill) documented as of this encounter (statuses as of 03/28/2024) Active Problems Problem Noted Date Diagnosed Date [...] 09/22/2023 Overview (09/22/2023): Screen positive at [facility]. CHARLES (generalized anxiety disorder) 11/17/2016 Estimated Date of Delivery Comme nts Yes 04/28/2024 Based on last me nstrual period of 07/23/2023 (Exact Date) documented as of this encounter (statuses as of 03/28/2024) Resolved Problems Problem Noted Date Diagnosed Date Resolved Date Heroin abuse 02/27/2021 05/12/2022 Depression 05/16/2020 05/12/2022 Supervision of normal first 05/16/2020 05/16/2020 Tobacco use disorder 05/16/2020 023 Migraine 08/06/2011 05/12/2022 Allergic rhinitis 05/12/2022 Celiac disease 05/12/2022 documented as of this encounter (statuses as of 03/28/2024) Immunizations Name Administration Dates Next Due DTaP [...] money to get more. Never true 11/27/2023 [place] Depression Scale Answer Date Recorded [place] Depression Scale Total 5 03/16/2024 The thought [...] on file documented as of this encounter Progress Notes * Clifford Calabrese MD - 03/28/2024 11:58 AM EST Outpatient Telepsychiatry Follow up Note Division of Psychiatry [facility] Patient location: HOME. I was not in a hospital or clinic location. After connecting through televideo, patient was verified with two unique identifiers. Patient (or authorized legal quality assurance representative) was then informed that this was a Telemedicine visit and being conducted confidentially over secure lines. My office door was closed. No one else was in the room with me. Methods to assure confidentiality were taken. I informed the patient that I have reviewed their record in [facility] and presented the opportunity for them to ask any questions regarding the visit today. The patient agreed to participate. Patient acknowledged consent and understanding of privacy and security of the Telemedicine visit. The patient agreed to participate. Rights and responsibilities of treatment discussed. Patient informed that the session will be held in keeping with [facility] policies and procedures as well as [facility] regulations. Documentation of sessions will be recorded in the [facility] medical record which,in an integrated health care system, is viewable by other [facility] care providers with a legitimate need to access this information. Patient informed that confidentiality is paramount, so they retain the right to request non documentation of sensitive personal information, but this is ultimately left upon the discretion of this physician. Information was provided to the patient about confidentiality of behavioral health records including the limits of confidentiality. Specifically this included the exceptions to confidentiality which are: Child abuse/neglect-this provider is a mandated reconciliation specialist for child abuse/neglect in the [facility]. If I become aware of child abuse or neglect I am legally required to file a report. Imminent Risk-if a person coming before me is at risk for imminently harming themselves or someone else, it is my legal responsibility to take action to protect life/ensure safety. Court Orders-while rare, I can be compelled to testify in court if required by a circuit judge or legal order. This most often occurs in child abuse or child custody cases but also occasionally occurs in felony cases in which the court believes I have information pertinent to the case. I will do my best toinform you if this request occurs. Patient informed and aware that follow up appointments are 30 min. Patient informed and aware that they need to be located in a private quiet space during this appointment in order for this provider to deliver the best of care, otherwise the session will need to be rescheduled. Patient informed about importance of keeping scheduled appointments and to provide 24 hours of advance notice if canceling an appointment when possible. Patients may be dismissed from care for repeated failure to keep scheduled appointments. The patient confirms understanding of this information and consents to treatment. Patient location: HOME. I was not in a hospital or clinic location. After connecting through televideo, patient was verified with two unique identifiers. Patient (or authorized legal quality assurance representative) was then informed that this was a Telemedicine visit and being conducted confidentially over secure lines. Methods to assure confidentiality were taken. Patient acknowledged consent and understanding of privacy and security of the Telemedicine visit. The patient agreed to participate. CHIEF COMPLAINT: Follow-up for psychiatric medication management HISTORY OF PRESENTING ILLNESS: Jesi is a 22 yo female, single, no significant medical history, seen today with the main complaintof ongoing anxiety. Jesi last saw an outpatient psychiatrist in 2019. She did go to [facility] rehab [place] twice in June 2020 and then in October 2020 for heroin and meth. She has reportedly been clean from substances since then. She never got Suboxone. She briefly saw a psychiatrist within [facility] about 4 years ago.She then dropped out of care. Vitorly started intermittently self-medicating with methamphetamine and heroin in 2018 for about3 years. During that period she stopped all her psychotropic medications. She restarted her psychotropic medications in 2021, prescribed by PCP. Past medications trials include Celexa and then Lexapro (did not tolerate well), Zoloft (zombie feeling), Prozac (does not recall), Trazodone (headaches), Seroquel, Buspar 5 mg which she took intermittently three times daily for about 2 months (although compliance was poor), Hydroxyzine (last took it 6 months ago, use was minimal). Current medications include Wellbutrin 150 mg 3 months now, Luvox 50 mg for 1.5 months. Jesi Coleman reports symptoms of Major Depressive Episode, in 2019, following the break up of a relationship, that happened nearly every day, such as depressed mood, anhedonia, psychomotor retardation, feelings of worthlessness/guilt, and hopelessness These are recurrent and have lasted more than 2 weeks per episode, reportedly lasted for 3 years without relief. She denies previous inpatient psychiatric hospitalizations. She denies a hx of suicide attempt. Shedenies hx of self harm. She denies current suicidal ideation/plan/intent. She denies AH/VH. She denies paranoid ideations or delusions. Jesi Coleman denies symptoms of umer/hypomania such as: Jesi Coleman reports symptoms of Generalized anxiety disorder such as: - Excessive anxiety/worry about work, catastrophising that is associated with easily tired, nausea,vomiting, panic attacks, irritability. These happen every other day She did see a therapist intermittently in the past. INTERVAL HISTORY: "I have been ok" Baby reportedly is growing well. Last MC July 22 (was seen by me on July 24). Currently 34 weeks - reportedly growth is good. Due date is April 26 2024. She is trying to breastfeed. She does feel more emotional, although she is able to enjoy things. 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. Salary was better. No weekends or holidays, first shift 7am- 330 pm. Mother is driving her to work currently. Future oriented, hopeful. She does use medical marijuana. She does have things that she enjoys. She does reports situational anxiety. She has a DUI (opiates), and is in the process of getting her [place] driver's license back and awaiting [place]. Her mother and siblings are reportedly excited and plan to help. Her sister may be also able to help. Jesi Coleman denies any change in medical history or medications since last visit. Supportive therapy skills employed. Psychoeducation provided. Psychotherapy start time: 1205 pm Psychotherapy end time: 1222 pm Medication side effects: denies Suicidal thoughts: denies Feeling down: denies Irritability: no Anxiety: no 01/21/24 CHARLES-7:2 minimal 03/28/24 Myc Visit Accident Related Question Question 03/28/2024 11:56 AM EST - Filed by Patient Is this visit related to an accident? (i.e work, motor vehicle) No Charles-7 Question 03/28/2024 12:18 PM EST - Filed by Clifford Calabrese MD Over the last 2 weeks, how often have you been bothered by the following problems? Feeling nervous, anxious, or on edge Several days Not being able to stop or control worrying Not at all Worrying too much about different things Several days Trouble relaxing Not at all Being so restless that is hard to sit still Not at all Becoming easily annoyed or irritable Not at all Feeling afraid as if something awful might happen Several days Total score of all questions (range: 0 - 21) 3 (Minimal) Phq9-Depression Question 03/28/2024 12:21 PM EST - Filed by Clifford Calabrese MD Over the last two weeks, how often have you been bothered by any of the following problems? Little interest or pleasure in doing things Not at all Feeling down, depressed or hopeless Not at all Over the last two weeks, how often have you been bothered by any of the following problems? Trouble falling or staying asleep, or sleeping too much Not at all Feeling tired or having little energy More than half the days Poor appetite or overeating More than half the days Feeling bad about yourself - or that you are a failure, or have let yourself or your family down Not at all Trouble concentrating on things, such as reading the newspaper or watching television Not at all Moving or speaking so slowly that other people could have noticed. Or the opposite - being so fidgety or restless that you have been moving around a lot more than usual Not at all Thoughts that you would be better off , or of hurting yourself Not at all Question 1 score (range: 0 - 3) 0 Question 2 score (range: 0 - 3) 0 Question 3 score (range: 0 - 3) 0 Question 4 score (range: 0 - 3) 2 Question 5 score (range: 0 - 3) 2 Question 6 score (range: 0 - 3) 0 Question 7 score (range: 0 - 3) 0 Question 8 score (range: 0 - 3) 0 Question 9 score (range: 0 - 3) 0 Sum of all PHQ9 questions. (range: 0 - 27) 4 (No Depression) Past Medical History: Diagnosis Date Allergic Allergic rhinitis spring Anxiety Constipation Depression 05/16/2020 CHARLES (generalized anxiety disorder) 11/17/2016 Migraine no aura ALLERGIES Review of patient's allergies indicates: No Known Allergies CURRENT MEDICATIONS: Current Outpatient Medications Medication Sig Dispense Refill Vitamin B-6 25 MG Oral Tablet Take 1 Tablet by mouth in the morning. doxylamine 12.5 MG OR TABS Take 0.5 Tablets by mouth at bedtime as needed. Vitamin and Mineral 28-0.8 MG Oral Tablet Take 1 Tablet by mouth every morning. Citalopram Hydrobromide 10 MG Oral Tablet (CeleXA) Take 1 Tablet by mouth in the morning. 30 Tablet2 Breast Pump Use as directed. 1 Each 0 No current facility-administered medications for this visit. No medication comments found. RECENT LABS/IMAGING: Recent Results (from the past 12 weeks) COMPREHENSIVE METABOLIC PANEL Collection Time: 01/26/24 9:04 AM Result Value Ref Range BUN 6 6 - 20 mg/dL CREATININE 0.5 0.5 - 1.0 mg/dL EGFR >90 >=60 mL/min SODIUM 136 135 - 146 mmol/L POTASSIUM 3.6 3.5 - 5.1 mmol/L CHLORIDE 104 98 - 107 mmol/L CO2 18 (L) 22 - 32 mmol/L ANION GAP 14 7 - 15 mmol/L GLUCOSE 149 (H) 70 - 120 mg/dL Albumin 3.7 (L) 3.8 - 5.0 g/dL AST 10 10 - 35 U/L Alkaline Phosphatase 89 35 - 130 U/L Bilirubin, Total <0.2 <=1.2 mg/dL CALCIUM 8.5 8.4 - 10.2 mg/dL Protein 5.8 (L) 6.0 - 8.3 g/dL ALT 12 10 - 35 U/L 50-G GESTATIONAL GLUCOSE, 1 HOUR Collection Time: 01/26/24 9:04 AM Result Value Ref Range 50-g Gestational Glucose, 1 Hour 152 (H) 70 - 129 mg/dL ANEMIA CBC Collection Time: 01/26/24 9:04 AM Result Value Ref Range WBC 11.28 (H) 4.00 - 10.80 K/uL RBC 4.00 3.85 - 5.15 M/uL HGB 12.4 12.0 - 15.3 g/dL HCT 37.4 36.0 - 45.2 % MCV 93.5 81.5 - 97.5 fL MCH 31.0 27.0 - 34.0 pg MCHC 33.2 32.0 - 36.0 g/dL RDW 13.2 11.5 - 15.5 % PLT 337 140 - 400 K/uL MPV 8.2 6.6 - 11.1 fL nRBCs 0 <=0 /100 WBCs DIFFERENTIAL, AUTOMATED Collection Time: 01/26/24 9:04 AM Result Value Ref Range WBC 11.28 (H) 4.00 - 10.80 K/uL Neutrophils % 74.2 40.0 - 75.0 % Lymphocytes % 17.3 (L) 18.0 - 42.0 % Monocytes % 5.0 1.0 - 11.0 % Eosinophils % 0.9 0.0 - 6.0 % Basophils % 0.5 0.0 - 2.0 % Immature Granulocytes % 2.1 (H) 0.0 - 2.0 % Absolute Neutrophils 8.37 (H) 1.80 - 7.70 K/uL Absolute Lymphocytes 1.95 1.00 - 4.80 K/ul Absolute Monocytes 0.56 0.00 - 1.10 K/uL Absolute Eosinophils 0.10 0.00 - 0.70 K/uL Absolute Basophils 0.06 0.00 - 0.20 K/uL Absolute Immature Granulocytes 0.24 (H) 0.00 - 0.20 K/uL SYPHILIS ANTIBODY SCREEN Collection Time: 01/26/24 9:04 AM Result Value Ref Range Syphilis Screen Interpretation Nonreactive Nonreactive MYCODE SST1 Collection Time: 01/29/24 8:03 AM Result Value Ref Range MyCode Specimen Freezing of extracted DNA, whole blood and/or serum. MYCODE SST2 Collection Time: 01/29/24 8:03 AM Result Value Ref Range MyCode Specimen Freezing of extracted DNA, whole blood and/or serum. 100-G GESTATIONAL GLUCOSE, FASTING Collection Time: 01/29/24 8:03 AM Result Value Ref Range 100-g Gestational Glucose, Fasting 83 70 - 94 mg/dL CULTURE, URINE, QUANTITATIVE Collection Time: 01/29/24 8:58 AM Specimen: Urine, Clean Catch Result Value Ref Range Culture Growth No significant growth 100-G GESTATIONAL GLUCOSE, 1 HOUR Collection Time: 01/29/24 9:07 AM Result Value Ref Range 100-g Gestational Glucose, 1 Hour 150 70 - 179 mg/dL 100-G GESTATIONAL GLUCOSE, 2 HOUR Collection Time: 01/29/24 10:07 AM Result Value Ref Range 100-g Gestational Glucose, 2 Hour 126 70 - 154 mg/dL 100-G GESTATIONAL GLUCOSE, 3 HOUR Collection Time: 01/29/24 11:08 AM Result Value Ref Range 100-g Gestational Glucose, 3 Hour 86 70 - 139 mg/dL URINALYSIS OBSTETRICS, POINT OF CARE Collection Time: 02/23/24 11:36 AM Result Value Ref Range Color, Urine Yellow Light Yellow, Yellow Clarity, Urine Clear Clear Glucose, Urine Negative Negative mg/dL Bilirubin, Urine Negative Negative Ketone, Urine Negative Negative mg/dL Specific [place], Urine 1.020 1.003 - 1.030 Blood, Urine Negative Negative pH, Urine 7.0 5.0, 5.5, 6.0, 6.5, 7.0, 7.5 units Protein, Urine Negative Negative mg/dL Urobilinogen, Urine 0.2 0.2, 1.0 mg/dL Nitrite, Urine Negative Negative Esterase, Urine Negative Negative 100-G GESTATIONAL GLUCOSE, FASTING Collection Time: 03/18/24 8:25 AM Result Value Ref Range 100-g Gestational Glucose, Fasting 81 70 - 94 mg/dL 100-G GESTATIONAL GLUCOSE, 1 HOUR Collection Time: 03/18/24 9:26 AM Result Value Ref Range 100-g Gestational Glucose, 1 Hour 107 70 - 179 mg/dL 100-G GESTATIONAL GLUCOSE, 2 HOUR Collection Time: 03/18/24 10:31 AM Result Value Ref Range 100-g Gestational Glucose, 2 Hour 108 70 - 154 mg/dL 100-G GESTATIONAL GLUCOSE, 3 HOUR Collection Time: 03/18/24 11:26 AM Result Value Ref Range 100-g Gestational Glucose, 3 Hour 111 70 - 139 mg/dL VITALS BP Readings from Last 4 Encounters: 03/16/24 108/68 02/29/24 120/74 02/23/24 118/72 02/11/24 108/64 Pulse Readings from Last 4 Encounters: 12/16/23 84 08/17/23 105 06/01/23 74 12/23/22 60 Wt Readings from Last 3 Encounters: 03/16/24 84.8 kg (187 lb) 02/29/24 83.5 kg (184 lb) 02/23/24 82.1 kg (181 lb) There is no height or weight on file to calculate BMI. MSE: Appearance: casually dressed and groomed Level of Consciousness and orientation: alert, oriented to time, place, person Attention: appropriate for conversation Eye contact: good Speech: Normal volume, normal rate, normal rhythm. Spontaneous. Motor: no significant psychomotor agitation or retardation, no hyperactivity noted. No evidence of tics, tardive dyskinesia or abnormal muscle movements. Mood: euthymic Affect: appropriate, non-labile, Euthymic Associations: intact Thought Process: goal directed and logical Thought Content: Suicidal Ideation: None voiced. Homicidal Ideation: None voiced. Psychosis: No evidence of responding to internal stimuli Insight: good, based on recognition and understanding of mental illness and need for treatment Judgement: good based on understanding of life events ASSESSMENT AND TREATMENT PLAN: [place] Suicide Severity Rating Scale Since Last Contact YES NO 1. Wish to be Subject endorses thoughts about a wish to be or not alive anymore, or wish to fall asleep and not wake up. Have you thought about being or what it would be like to be ? Have you wished you were or wished you could go to sleep and never wake up? Do you wish you werent alive anymore? If yes, describe: x If YES, ask the following questions. If NO, go directly to the last question 2) Have you actually had any thoughts of killing yourself? General, non-specific thoughts of wanting to end ones life/commit suicide (e.g., Mckenzie thought about killing myself) without thoughts of ways to kill oneself/associated methods, intent, or plan during the assessment period. Have you thought about doing something to make yourself not alive anymore? Have you had any thoughts about killing yourself? If yes, describe: 3. Have you been thinking about how you might do this? Subject endorses thoughts of suicide and has thought of at least one method during the assessment period. This is different than a specific plan with time, place or method details worked out (e.g., thought of method to kill self but not a specific plan). Includes person who would say, I thought about taking an overdose but I never made a specific plan as to when, where or how I would actually do itand I would never go through with it. Have you thought about how you would do that or how you would make yourself not alive anymore (killyourself)? What did you think about? If yes, describe: 4. Have you had these thoughts and had some intention of acting on them? Active suicidal thoughts of killing oneself and subject reports having some intent to act on such thoughts, as opposed to I have the thoughts but I definitely will not do anything about them. When you thought about making yourself not alive anymore (or killing yourself), did you think that this was something you might actually do? This is different from (as opposed to) having the thoughts but knowing you wouldnt do anything about it. If yes, describe: 5. Have you started to work out or worked out the details of how to kill yourself? Do you intend to carry out this plan? Thoughts of killing oneself with details of plan fully or partially worked out and subject has someintent to carry it out. Have you decided how or when you would make yourself not alive anymore/kill yourself? Have you planned out (worked out the details of) how you would do it? What was your plan? When you made this plan (or worked out these details), was any part of you thinking about actually doing it? If yes, describe: 6. Have you ever done anything, started to do anything, or prepared to do anything to end your life? Examples: Collected pills, obtained a gun, gave away valuables, wrote a will or suicide note, took out pills but didnt swallow any, held a gun but changed your mind or it was grabbed from your hand, went to the roof but didnt jump; or actually took pills, tried to shoot yourself, cut yourself, tried to hang yourself, etc. If YES, ask: Was this within the past three months? Low Risk Complete or review crisis plan with patient Discuss risk/protective factors and reasons for living Moderate Risk Complete or review crisis plan with patient Discuss risk/protective factors and reasons for living Discuss removal of means High Risk Maintain 1 to 1 monitoring until assessment is completed Evaluate for higher level of care (Inpatient or PHP) Consultation with Emergency Services as appropriate If patient not admitted: Complete or review crisis plan with patient Discuss risk/protective factors and reasons for living Advise removal of means Consider family or collateral contact to promote safety Schedule follow up care consistent with assessment CHARLES (generalized anxiety disorder) (Primary) Opioid dependence in remission (HCC) Methamphetamine use disorder, mild, in sustained remission (HCC) 35 weeks gestation of During this session, a CRISIS plan was developed with the patient's collaboration, including using coping skills, reaching out to supportive people, calling CRISIS numbers (provided with the patient instructions) Crisis Plan Step 1: Signs that I am doing worse: Withdrawn to room, increased anger/anxiety Step 2: Internal Coping Strategies: Things I can do to take my mind off my problems without contacting another person: Petting the dog, watch TV Step 3: People and social settings that provide distraction (name, phone number and place): Friend [place] Mother Ellen Step 4: People whom I can ask for help (name and phone number): As above Step 5: Professionals or agencies I can contact during a crisis (clinician name and phone number): As above Step 6: Keeping the environment safe: Plan for restricting access to lethal means (firearms, medications). Locking up pills (Safety Plan Treatment Manual to Reduce Suicide Risk: Version (Gordon & Howie, 2008)) A. Treatment plan reviewed with Jesi Coleman who provided oral consent. Treatment plan outlined below. Outpatient Adult Psychiatry Treatment Plan Treatment plan was not developed - due at next visit 03/28/24 Mood and anxiety stable overall, as reflected in scales. No SI/HI or psychosis. Continue Citalopram, denies SE. B. Medication management. After discussing options, recommendations and alternatives, we agreed on the following. Monitor effectiveness and SE. Informed consent obtained. Slow med changes and one at a time. SSRIs first line for working diagnoses. Currently - Continue Celexa 10 mg QD. Have reviewedrisks and benefits. Informed consent obtained. D. Will encourage continuous therapy. Extensive psychoeducation provided on natural history of CHARLES and role of thought distortions as well as need of cognitive restructuring and behavioral modifications. E. Obtain collateral information. G. Follow up in 4-8 weeks. Patient agreeable to plan as outlined above. Risk assessment was performed. This is a patient being treated for chronic mental health conditionsand/or substance use disorder as characterized above; at the time of this visit, there was no indication that this patient was either a risk to self, others, or gravely disabled by symptoms of a mental illness or substance use disorder. At the time of this evaluation, there were enough protective factors in place and it was deemed safe to continue with treatment on an outpatient basis with returnto clinic in the timeframe described above. Jesi Coleman participated in developing a crisis plan should he/she experience worsening of symptoms before next follow-up appointment, including being aware of what resources to use according to the urgency and severity of symptoms. Jesi Coleman was able to verbalize understanding of the steps necessary to obtain help between appointments should be needed, from requesting a phone call, to requesting an appointment sooner, including reaching clinic after hours, or accessing emergency mental health and medical services, either at a local emergency department or by activating mobile crisis teams and EMS. More than 16 mins of face to face visit time was spent in psychotherapy, see assessment for contentof psychotherapy. Thank you for allowing me to participate in the care of this patient. Clifford Calabrese M.D., PhD Board Certified Adult Psychiatrist and Sleep Medicine Physician [facility] documented in this encounter Plan of Treatment Upcoming Encounters Date Type Department Care Team (Late st Contact Info) Description 03/31/2024 10:45 AM EST Office Visit Gynecology/Obstetrics [facility] [address] [place] [address] Jose Alejandro Perez MD [address] [place] [phone] 04/04/2024 11:45 AM EST Office Visit Gynecology/Obstetrics Thom Bonilla [address] [facility] [place] [address] Zena Nicole PA-C [address] [place] [address] 05/16/2024 2:00 PM EST Telemedicine Psychiatry [address] [place] [address] [facility] [place] [phone] Clifford Calabrese MD [address] [place] [address] 06/06/2024 5:40 PM EST Office Visit Family Practice [facility] [place] [address] [place] [address] Patricia Ta DO [address] [place] [address] Health Maintenance Due Date Last Done Comments HPV (Gardasil) Vaccine (1 - 3-dose series) 2013 COVID-19 Vaccine (2023- season) 2023 Depression Screening 03/28/2025 03/28/2024, 04/17/19 24 Pap Smear 06/23/2025 06/23/2022 DTap/Tdap Vaccines (10 [...] as of this encounter Visit Diagnoses Diagnosis CHARLES (generalized anxiety disorder)- Primary Generalized anxiety disorder Opioid dependence in remission (HCC) Opioid type dependence, in remission Methamphetamine use disorder, mild, in sustained remission (HCC) 35 weeks gestation of state, incidental documented in this encounter Care Teams Auto Adjudication Specialist Relationship Specialty Start Date End Date Patricia Ta DO [address] [facility] [place] [address] PCP - General Family Medicine 05/12/22 documented as of this encounter
--- OUTSIDE RECORDS SUMMARY | 2024-04-21 08:46 | External Medical Summary | Summary of Care ---
Author Name Unknown Organization [facility] Address [address] [facility] [place] [address] Phone [phone] Care Team Providers Care Frame Stylist Name Role Phone Patricia Ta DO Primary Care Provider +1- [phone] Encounter Details Date Type Department Care Team (Late st Contact Info) Description 04/04/2024 Telephone [facility]cology[facility] [address] [place] [address] Zena Nicole PA-C [address] [place] [address] Allergies No known active allergiesdocumented as of [...] money to get more. 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 [place] [phone] Clifford Calabrese MD [address] [facility] [place] [address] 06/06/2024 5:40 PM EST Office [facility] [address] [address] [place] [address] Patricia Ta DO [address] [place] [address] Health Maintenance Due Date Last Done Comments [...] filedocumented as of this encounter Care Teams Frame Stylist Relationship Specialty Start Date End Date Patricia Ta DO [address] [place] [address] PCP - General Family Medicine 05/12/22 documented as of this encounter
--- OUTSIDE RECORDS SUMMARY | 2024-04-21 08:46 | External Medical Summary ---
Author Name Unknown Address Unknown Organization [id number]:[facility] [address] - [address] [place] [address] Laboratory Report Ordering Provider Test Date Status NAKUL FALL 04/07/2024 13:17:00 Final Observation Date Value Abnormality Reference (Units ) Status Color of Urine by Auto 04/07/2024 13:17:00 Yellow Light Yellow, Yellow Final Clarity, Urine 04/07/2024 13:17:00 Clear Clear Final Glucose [Mass/volume] in Urine by Automated test strip 04/07/2024 13:17:00 Negative Negative (mg/dL) Final Bilirubin.total [Presence] in Urine by Automated test strip 04/07/2024 13:17:00 Negative Negative Final Ketones [Mass/volume] in Urine by Automated test strip 04/07/2024 13:17:00 Negative Negative (mg/dL) Final Specific gravity, Urine 04/07/2024 13:17:00 >=1.030 1.003-1.030 Final Hemoglobin [Presence] in Urine by Automated test strip 04/07/2024 13:17:00 Negative Negative Final pH, Urine 04/07/2024 13:17:00 6.0 5.0, 5.5, 6.0, 6.5, 7.0, 7.5 (units) Final Protein [Mass/volume] in Urine by Automated test strip 04/07/2024 13:17:00 Negative Negative (mg/dL) Final Urobilinogen, Urine 04/07/2024 13:17:00 0.2 0.2, 1.0 (mg/dL) Final Nitrite [Presence] in Urine by Automated test strip 04/07/2024 13:17:00 Negative Negative Final Leukocyte esterase [Presence] in Urine by Automated test strip 04/07/2024 13:17:00 Trace Abnormal Negative Final Performing Location [facility] [address] [place] [address]
--- OUTSIDE RECORDS SUMMARY | 2024-04-21 08:46 | External Medical Summary | Summary of Care ---
Author Name Unknown Organization [facility] Address [address] [facility] [place] [address] Phone [phone] Care Team Providers Care Photoengraving Sketch Maker Name Role Phone Patricia Ta DO Primary Care Provider +1- [phone] Reason for Visit * Reason Comments Return Visit Encounter Details Date Type Department Care Team (Late st Contact Info) Description 04/04/2024 11:45 AM EST Office Visit Gynecology/Obstetric s Thom Bonilla [address] [place] [address] Zena Nicole PA-C [address] [place] [address] Normal in third trimester*; Marijuana use during [...] money to get more. Never true 11/27/2023 [place] Depression Scale Answer Date Recorded [place] Depression Scale Total 5 03/16/2024 The thought [...] Sign Reading Time Taken Comments Blood Pressure 110/62 04/04/2024 11:50 AM EST Pulse - - Temperature - - Respiratory Rate - - Oxygen Saturation - - Inhaled Oxygen Concentration - - Weight 88.9 kg (196 lb) 04/04/2024 11:50 AM EST Height 152.4 cm (5') 04/04/2024 11:50 AM EST Body Mass Index 38.28 04/04/2024 11:50 AM EST documented in this encounter Progress Notes * Zena Nicole PA-C - 04/04/2024 12:02 PM EST 36w4d Doing well overall. Some increase low back pain more left sided. Reviewed support measures. Denies VB, LOF, or contractions. Baby active. GBS last visit. Mild poly -- repeat 3 hour gtt normal. Will plan u/s for LORRAINE next visit. RTC in 1 week Zena Nicole PA-C * Aliza Paz LPN - 04/04/2024 11:50 AM EST 36w4d Denies any concerns documented in this encounter Plan of Treatment Upcoming Encounters Date Type Department Care Team (Late st Contact Info) Description 05/16/2024 2:00 PM EST Telemedicine Psychiatry [address] [place], [place] [address] [place] [phone] Clifford Calabrese MD [address] [place] [address] 06/06/2024 5:40 PM EST Office Visit Family Practice [place], [place] [address] [place] [address] Patricia Ta DO [address] [facility] [address] Scheduled Orders Name Type Priority Associated Diagnoses Orde r Schedule US PREG LIMITED 1 OR MORE FETUSES Medical Imaging Routine Normal in third trimester Polyhydramnios in third trimester complication, single or unspecified fetus Expected: 04/13/2024, Expires: 05/05/2025 Health Maintenance Due Date Last Done Comments [...] fetus documented in this encounter Care Teams Photoengraving Sketch Maker Relationship Specialty Start Date End Date Patricia Ta DO [address] [facility] [place] [address] PCP - General Family Medicine 05/12/22 documented as of this encounter
--- OUTSIDE RECORDS SUMMARY | 2024-04-21 08:46 | External Medical Summary | Summary of Care ---
Author Name Unknown Organization [facility] Address [address] [facility] [place] [address] Phone [phone] Care Team Providers Care Inspection Supervisor Name Role Phone Patricia Ta DO Primary Care Provider +1- [phone] Reason for Visit * Reason Comments Blood Pressure Check Encounter Details Date Type Department Care Team (Late st Contact Info) Description 04/07/2024 3:00 PM EST Nurse Only Gynecology/Obstetrics [facility] [address] [facility] [place] [address] Gw, Nurse Obgyn Injection [address] [facility] [place] [address] Blood Pressure Check Allergies No known active [...] money to get more. 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 [address] [facility] [place] [address] 04/14/2024 2:00 PM EST Office Visit Gynecology/Obstetrics [facility] [address] [facility] [place] [address] Shavonne Hensley PA-C [address] [place] [address] 05/16/2024 2:00 PM EST Telemedicine Psychiatry [facility] [address] [place] [phone] Clifford Calabrese MD [address] [place] [address] 06/06/2024 5:40 PM EST Office Visit Family Practice [address], [place] [address] [place] [address] Patricia Ta DO [address] [place] [address] Scheduled Orders Name Type Priority Associated Diagnoses [...] hypertension documented in this encounter Care Teams Inspection Supervisor Relationship Specialty Start Date End Date Patricia Ta DO [address] [facility] [place] [address] PCP - General Family Medicine 05/12/22 documented as of this encounter
--- OUTSIDE RECORDS SUMMARY | 2024-04-21 08:46 | External Medical Summary | Summary of Care ---
Author Name Unknown Organization [facility] Address [address] [place] [address] Phone [phone] Care Team Providers Care Drawing Checker Name Role Phone Patricia Ta DO Primary Care Provider +1- [phone] Reason for Visit * Reason Comments Return Visit Encounter Details Date Type Department Care Team (Late st Contact Info) Description 03/31/2024 10:45 AM EST Office Visit Gynecology/Obstetric [facility] [address] [place] [address] Jose Alejandro Perez MD [address] [place] [phone] Marijuana use during *; Abnormal glucose tolerance [...] money to get more. 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 [place] [phone] Clifford Calabrese MD [address] [place] [phone] 06/06/2024 5:40 PM EST [facility] [address] [facility] [place] [phone] Patricia Ta DO [address] [place] [address] Pending Results Name Type Priority Associated [...] virus documented in this encounter Care Teams Drawing Checker Relationship Specialty Start Date End Date Patricia Ta DO [address] [facility] [place] [address] PCP - General Family Medicine 05/12/22 documented as of this encounter
--- OUTSIDE RECORDS SUMMARY | 2024-04-21 08:47 | External Medical Summary | Summary of Care ---
Author Name Unknown Organization [facility] Address [address] [place] [address] Phone [phone] Care Team Providers Care Gymnastics Coach Or Instructor Name Role Phone Patricia Ta DO Primary Care Provider +1- [phone] Encounter Details Date Type Department Care Team (Late st Contact Info) Description 02/23/2024 Telephone Gynecology/Obstetrics [facility] [address] [place] [address] Hernesto Linder MD [address] [place] [address] Allergies No known active allergiesdocumented as of this encounter (statuses as of 02/23/2024) Medications Vitamin B-6 25 MG Oral Tablet [...] as of this encounter (statuses as of 02/23/2024) Active Problems Problem Noted Date Diagnosed Date Abnormal glucose tolerance in mother complicatin g 01/27/2024 Overview (02/01/2024): Passed 3 hr glucose at 27w4d Marijuana use during 09/22/2023 Overview (09/22/2023): Screen positive at [facility]. 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 Never true 11/27/2023 [place] Depression Scale Answer Date Recorded [place] Depression Scale Total 0 09/18/2023 The thought of harming myself has occurred to me . Never 09/18/2023 Childcare Answer Date Recorded Do you feel [...] s 11/27/2023 Does the household have a [facility] medical cent[facility] source of income? (Household - for ages [...] encounter Miscellaneous Notes * Telephone Encounter - Hernesto Linder MD - 02/23/2024 12:58 PM EST Recommend to go to ER for Persistent RUIZ Thank you * Telephone Encounter - Rita Llamas LPN - 02/23/2024 11:51 AM EST Pt is currently 30w5d with an Estimated Date of Delivery: 04/28/24 - Patient with three days of headache, Took Tylenol 1000mgs x 3 yesterday with no relief. +FM, denies swelling. 1 lb weight gain since last visit. No excessive/sudden increase in swelling. Denies bleeding or leaking/gushing fluid. Urine dip with neg protein, No leuks BP WNL. 118/72, Temp 98.6 Gave patient Migraine supplement recommendation. Will have Dr. Giraldo review for any further advice. documented in this encounter Plan of Treatment Upcoming Encounters Date Type Department Care Team (Late st Contact Info) Description 02/29/2024 4:30 PM EST Office Visit Gynecology/Obstetrics [facility] [address] [place] [address] Zena Nicole PA-C [address] [place] [address] 03/28/2024 12:00 PM EST Telemedicine Psychiatry [place] [address] [place] [phone] Clifford Calabrese MD [address] [place] [phone] 06/06/2024 5:40 PM EST Office Visit Family Practice [facility] [place] [address] [place] [address] Patricia Ta DO [address] [place] [address] Health Maintenance Due Date Last Done Comments HPV (Gardasil) Vaccine (1 - 3-dose series) 2013 COVID-19 Vaccine (2023- season) 2023 Depression Screening 04/17/2024 04/17/2023 Pap [...] filedocumented as of this encounter Care Teams Gymnastics Coach Or Instructor Relationship Specialty Start Date End Date Patricia Ta DO [address] [facility] [place] [address] PCP - General Family Medicine 05/12/22 documented as of this encounter
--- OUTSIDE RECORDS SUMMARY | 2024-04-21 08:47 | External Medical Summary | Summary of Care ---
Author Name Unknown Organization [facility] Address [address] [place] [address] Phone [phone] Care Team Providers Care Community Integration Specialist Name Role Phone Patricia Ta DO Primary Care Provider +1- [phone] Encounter Details Date Type Department Care Team (Late st Contact Info) Description 02/23/2024 Telephone [facility] [address] [place] [address] Nakul Soria MD [address] [place] [address] Allergies No known active allergiesdocumented as of [...] money to get more. Never true 11/27/2023 [place] Depression Scale Answer Date Recorded [place] Depression Scale Total 0 09/18/2023 The thought [...] s 11/27/2023 Does the household have a [facility] source of income? (Household - for ages [...] encounter Miscellaneous Notes * Telephone Encounter - Rita Llamas LPN - 02/23/2024 11:22 AM EST Pt is currently 30w5d with an Estimated Date of Delivery: 04/28/24 - Patient with c/o headache for three days. Is feeling feverish but has not checked her temperature. States she feels very sick. Denies blurred vision or spots in the vision. Took Tylenol x 3 yesterdaywithout relief. Works in OR at [employer]. Patient coming to office for BP, urine dip and temp check. documented in this encounter Plan of Treatment Upcoming Encounters Date Type Department Care Team (Late st Contact Info) Description 02/29/2024 4:30 PM EST Office Visit Gynecology/Obstetrics [facility] [address] [place] [address] Zena Nicole PA-C [address] [place] [address] 03/28/2024 12:00 PM EST Telemedicine Psychiatry James Carlson [address] [place] [phone] Clifford Calabrese MD [address] [place] [address] 06/06/2024 5:40 PM EST Office [facility] [place] [address] [facility] [place] [address] Patricia Ta DO [address] [place] [address] Health Maintenance Due Date Last Done Comments [...] filedocumented as of this encounter Care Teams Community Integration Specialist Relationship Specialty Start Date End Date Patricia Ta DO [address] [facility] [place] [address] PCP - General Family Medicine 05/12/22 documented as of this encounter
--- OUTSIDE RECORDS SUMMARY | 2024-04-21 08:47 | External Medical Summary ---
Author Name Unknown Address Unknown Organization K01:[facility] [place] [address] [place] [address] Laboratory Report Ordering Provider Test Date Status SUZAN RYAN 03/18/2024 10:31:00 Final Observation Date Value Abnormality Reference (Units ) Status Glucose, 2-hr post glucose challenge 03/18/2024 10:31:00 108 70-154 (mg/dL) Final Performing Location LABORATORY [facility] - [address] [place] [address]
--- OUTSIDE RECORDS SUMMARY | 2024-04-21 08:47 | External Medical Summary | Summary of Care ---
Author Name Unknown Organization [facility] Address [address] [facility] [address] Phone [phone] Care Team Providers Care Fbi Profiler Name Role Phone Patricia Ta DO Primary Care Provider +1- [phone] Reason for Visit * Reason Comments Return Visit Encounter Details Date Type Department Care Team (Late st Contact Info) Description 02/11/2024 3:45 PM EDT Office Visit Gynecology/Obstetric s [facility] [address] [place] [address] Shavonne Hensley PA-C [address] [place] [address] Encounter for supervision of other normal in third trimester*; Obesity in , antepartum; Class 1 obesity due to excess calories without serious comorbidity with body mass index (BMI) of 30.0 to 30.9 in adult; Abnormal glucose tolerance in mother complicating ; Marijuana use during ; Need for prophylactic vaccination with combined gxrpwxfpvw-exgiqqu-er rtussis (DTP) vaccine; Breast feeding status of mother Allergies No known active allergiesdocumented as of this encounter (statuses as of 02/11/2024) Medications Medication Sig Dispensed Refills Start Date End Date Status Vitamin B-6 25 MG Oral Tablet Take 1 Tablet by mouth in the morning. Active doxylamine 12.5 MG OR TABS Take 0.5 Tablets by mouth at bedtime as needed. Active Vitamin and Mineral 28-0.8 MG Oral Tablet Take 1 Tablet by mouth every morning. Active Citalopram Hydrobromide 10 MG Oral Tablet (CeleXA) Take 1 Tablet by mouth in the morning. 30 Tablet 2 01/21/2024 Active Breast PumpIndications:Breast feeding status of mother Use as directed. 1 Each 02/11/2024 Active documented as of this encounter (statuses as of 02/11/2024) Active Problems Problem Noted Date Diagnosed Date Abnormal glucose tolerance in mother complicatin g 01/27/2024 Overview: Passed 3 hr glucose at 27w4d Marijuana use during 09/22/2023 Overview: Screen positive at [facility]. 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 Never true 11/27/2023 [place] Depression Scale Answer Date Recorded [place] Depression Scale Total 0 09/18/2023 The thought [...] Assigned at Female 10/22/2021 10:51 AM EDT Gender Identity Female 10/22/2021 10:51 AM EDT Sexual Orientation Straight 10/22/2021 10 :51 AM EDT Job Start Date Occupation Industry Not on file Not on file Not on file documented as of this encounter Last Filed Vital Signs Vital Sign Reading Time Taken Comments Blood Pressure 108/64 02/11/2024 3:40 PM EDT Pulse - - Temperature - - Respiratory Rate - - Oxygen Saturation - - Inhaled Oxygen Concentration - - Weight - - Height - - Body Mass Index - - documented in this encounter Progress Notes * Shavonne Hensley PA-C - 02/11/2024 3:48 PM EDT Jesi Coleman is a 23 year old female here for her routine OB appointment at 29w0d Her Estimated Date of Delivery: 04/28/24 She is continuing to have some nausea and acid reflux. Has been using Unisom/B6 and Tums for relief. May also use Pepcid. REVIEW OF SYSTEMS She affirms movement. Denies vaginal bleeding, LOF, contractions, headaches, vision changes. PHYSICAL EXAM Filed Vitals: 02/11/24 1540 BP: 108/64 +FHT 150s Fundal height 29 cm ASSESSMENT/PLAN Encounter for supervision of other normal in third trimester (Primary) Obesity in , antepartum Class 1 obesity due to excess calories without serious comorbidity with body mass index (BMI) of 30.0 to 30.9 in adult Abnormal glucose tolerance in mother complicating - Passed 3 hour GTT Marijuana use during Need for prophylactic vaccination with combined cltrztqrns-xqihkpt-tuiiqaodp (DTP) vaccine - TDAP (AGE 7 AND OLDER), ADACEL Breast feeding status of mother - Breast Pump; Use as directed. Supervision of - recommended tdap vaccine - patient received today - reviewed 3rd trimester labs WNL. - she desires prescription for a breast pump - is planning something hormonal for contraception . Was on control patch in the past. Discussed options safe with . Patient thinks she is planning POP for contraception. - rhogam not needed d/t positive blood type - labor precautions and kick counts reviewed RTO in 2 weeks Shavonne Hensley PA-C 02/11/2024 * Rita Llamas LPN - 02/11/2024 3:40 PM EDT Pt is currently 29w0d with an Estimated Date of Delivery: 04/28/24 - documented in this encounter Nursing Notes * Rita Llamas LPN - 02/11/2024 4:14 PM EDT 02/11/2024 Tdap Vaccine administered per clinic protocol. Pt given VIS(vaccine information sheet) Rita Llamas LPN documented in this encounter Plan of Treatment Upcoming Encounters Date Type Department Care Team (Late st Contact Info) Description 02/29/2024 4:30 PM EST [facility] [address] [place] [address] Zena Nicole PA-C [address] [place] [address] 03/28/2024 12:00 PM EST Telemedicine Psychiatry [place] [address] [place] [phone] Clifford Calabrese MD [address] [place] [phone] 06/06/2024 5:40 PM EST Office Visit [facility] [place] Jaycee Corley [address] [place] [address] Patricia Ta DO [address] [place] [address] Health Maintenance Due Date Last Done Comments HPV (Gardasil) Vaccine (1 - 3-dose series) 2013 COVID-19 Vaccine ( - 2023- season) 2023 Depression Screening 04/17/2024 04/17/2023 Pap [...] as of this encounter Visit Diagnoses Diagnosis Encounter for supervision of other normal in third trimester- Primary Obesity in , antepartum Obesity complicating , childbirth, or the puerperium, antepartum condition or complication Class 1 obesity due to excess calories without serious comorbidity with body mass index (BMI) of 30.0 to 30.9 in adult Abnormal glucose tolerance in mother complicating Abnormal maternal glucose tolerance, complicating , childbirth, or the puerperium, unspecified as to episode of care Marijuana use during Need for prophylactic vaccination with combined okkazezrnw-hbbcfpj-vemjqnhhc (DTP) vaccine Breast feeding status of mother care and examination of lactating mother documented in this encounter Care Teams Fbi Profiler Relationship Specialty Start Date End Date Patricia Ta DO [address] [facility] [place] [address] PCP - General Family Medicine 05/12/22 documented as of this encounter
--- OUTSIDE RECORDS SUMMARY | 2024-04-21 08:47 | External Medical Summary | Summary of Care ---
Author Name Unknown Organization [facility] Address [address] [place] [address] Phone [phone] Care Team Providers Care Process Development Chemist Name Role Phone Patricia Ta DO Primary Care Provider +1- [phone] Encounter Details Date Type Department Care Team (Late st Contact Info) Description 02/23/2024 Telephone Gynecology/Obstetrics [facility] [email or web address] [place] [address] Hernesto Linder MD [address] [place] [address] Allergies No known active allergiesdocumented as of [...] money to get more. Never true 11/27/2023 [place] Depression Scale Answer Date Recorded [place] Depression Scale Total 0 09/18/2023 The thought [...] s 11/27/2023 Does the household have a [facility] source of income? (Household - for [...] Recommend to go to ER for Persistent RIUZ Thank you * Telephone Encounter - Rita [...] 02/29/2024 4:30 PM EST Office Visit Gynecology/Obstetrics [facility] [address] [place] [address] Zena Nicole PA-C [address] [place] [address] 03/28/2024 12:00 PM EST Telemedicine Psychiatry [place] [address] [place] [phone] Clifford Calabrese MD [address] [place] [phone] 06/06/2024 5:40 PM EST Office Visit Family Practice [place] Jaycee Corley [address] [place] [address] Patricia Ta DO [address] [place] [place] [address] Health Maintenance Due Date Last Done Comments [...] filedocumented as of this encounter Care Teams Process Development Chemist Relationship Specialty Start Date End Date Patricia Ta DO [address] [facility] [place] [address] PCP - General Family Medicine 05/12/22 documented as of this encounter
--- OUTSIDE RECORDS SUMMARY | 2024-04-21 08:47 | External Medical Summary | Summary of Care ---
Author Name Unknown Organization [facility] Address [address] [facility] [place] [address] Phone [phone] Care Team Providers Care Suspect Artist Name Role Phone Patricia Ta DO Primary Care Provider +1- [phone] Reason for Visit * Reason Onset Date Comments Test Results 03/17/2024 Encounter Details Date Type Department Care Team (Late st Contact Info) Description 03/17/2024 Telephone Gynecology/Obstetrics [facility] [address] [place] [address] Zena Nicole PA-C [address] [place] [address] Test Results Allergies No known active allergiesdocumented as of this encounter (statuses as of 03/17/2024) Medications Vitamin B-6 25 MG Oral Tablet [...] as of this encounter (statuses as of 03/17/2024) Active Problems Problem Noted Date Diagnosed Date Normal 03/16/2024 Obesity in , antepartum 03/16/2024 [...] as of this encounter (statuses as of 03/17/2024) Resolved Problems Problem Noted Date Diagnosed Date Resolved Date 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 * Telephone Encounter - Zena Nicole PA-C - 03/17/2024 10:09 AM EST Please let patient know reviewed her ultrasound. Growth normal. Her amniotic fluid levels where just above normal indicating a condition called mild polyhydramnios. This may resolve with time. I did reach out to maternal medicine group for advise given these findings. Once I hear back from them I will reach back out to her and let her know. Zena Nicole PA-C documented in this encounter Plan of Treatment Upcoming Encounters Date Type Department Care Team (Late st Contact Info) Description 03/28/2024 12:00 PM EST Telemedicine Psychiatry James [place]son [address] [place] [phone] Clifford Calabrese MD [address] [place] [phone] 03/31/2024 10:45 AM EST Office Visit Gynecology/Obstetrics [facility] [address] [place] [address] Jose Alejandro Perez MD [address] [place] [address] 04/04/2024 11:45 AM EST Office Visit Gynecology/Obstetrics [facility] [address] [place] [address] Zena Nicole PA-C [address] [place] [address] 06/06/2024 5:40 PM EST Office Visit [facility] [address] [place] [address] Patricia Ta DO [address] [place] [address] Health Maintenance Due Date Last Done Comments [...] filedocumented as of this encounter Care Teams Suspect Artist Relationship Specialty Start Date End Date Patricia Ta DO [address] [place] [address] PCP - General Family Medicine 05/12/22 documented as of this encounter
--- OUTSIDE RECORDS SUMMARY | 2024-04-21 08:47 | External Medical Summary | Summary of Care ---
Author Name Unknown Organization [facility] Address [address] [facility] [place] [address] Phone [phone] Care Team Providers Care Buckle Sewer Name Role Phone Patricia Ta DO Primary Care Provider +1- [phone] Encounter Details Date Type Department Care Team (Late st Contact Info) Description 02/23/2024 Telephone Gynecology/Obstetrics [facility] [address] [place] [address] Hernesto Linder MD [address] [place] [address] Allergies No known active allergiesdocumented as of [...] money to get more. Never true 11/27/2023 [place] Depression Scale Answer Date Recorded [place] Depression Scale Total 0 09/18/2023 The thought [...] s 11/27/2023 Does the household have a [facility] source of income? 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 She is going to try more tylenol and if persistent will go to the ER. * Telephone Encounter - Hernesto Linder MD [...] 02/29/2024 4:30 PM EST Office Visit Gynecology/Obstetrics [facility] [address] [facility] [place] [address] Zena Nicole PA-C [address] [place] [address] 03/28/2024 12:00 PM EST Telemedicine Psychiatry [place] [address] [place] [phone] Clifford Calabrese MD [address] [place] [phone] 06/06/2024 5:40 PM EST Office Visit [facility] Jaycee Corley [address] [place] [address] Patricia Ta DO [address] [place] [address] Health Maintenance Due Date Last Done Comments [...] filedocumented as of this encounter Care Teams Buckle Sewer Relationship Specialty Start Date End Date Patricia Ta DO [address] [place] [address] PCP - General Family Medicine 05/12/22 documented as of this encounter
--- OUTSIDE RECORDS SUMMARY | 2024-04-21 08:47 | External Medical Summary | Summary of Care ---
Author Name Unknown Organization [facility] Address [address] [facility] [place] [address] Phone [phone] Care Team Providers Care Antique Jewelry Repairer Name Role Phone Patricia Ta DO Primary Care Provider +1- [phone] Reason for Visit * Reason Comments Return Visit Encounter Details Date Type Department Care Team (Late st Contact Info) Description 02/29/2024 4:30 PM EST Office Visit Gynecology/Obstetric s [facility] [address] [place] [address] Zena Nicole PA-C [address] [place] [address] Normal in third trimester*; Marijuana use during ; Abnormal glucose tolerance in mother complicating ; Uterine size date discrepancy Allergies No known active allergiesdocumented as of this encounter (statuses as of 02/29/2024) Medications Vitamin B-6 25 MG Oral Tablet [...] as of this encounter (statuses as of 02/29/2024) Active Problems Problem Noted Date Diagnosed Date [...] as of this encounter (statuses as of 02/29/2024) Resolved Problems Problem Noted Date Diagnosed Date Resolved Date 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 Resolved. Denies VB, LOF. Baby is active. S>D today, advised growth sono in follow up Labor precautions reviewed RTC in 2 weeks Zena Nicole PA-C * Karely Kiser CMA - 02/29/2024 4:21 PM EST 31w4d Sore from working on feet all day. Denies any concerns documented in this encounter Plan of Treatment Upcoming Encounters Date Type Department Care Team (Late st Contact Info) Description 03/16/2024 12:00 PM EST Imaging Radiology [facility] [address] [facility] [place] [address] 03/16/2024 1:30 PM EST Office Visit Gynecology/Obstetrics [facility] [address] [facility] [place] [address] Pretty Younger CRNP [address] [facility] [place] [address] 03/28/2024 12:00 PM EST Telemedicine Psychiatry [place]son [address] [place] [phone] Clifford Calabrese MD [address] [place] [phone] 06/06/2024 5:40 PM EST Office Visit Family [facility] Jaycee Corley [address] [place] [address] Patricia Ta DO [address] [place] [address] Scheduled Orders Name Type Priority Associated Diagnoses Orde r Schedule US PREG FOLLOW-UP EACH FETUS Medical Imaging Routine Normal in third trimester Uterine size date discrepancy Expected: 02/29/2024, Expires: 03/30/2025 Health Maintenance Due Date Last Done Comments [...] puerperium, unspecified as to episode of care Uterine size date discrepancy Uterine size date discrepancy, antepartum condition or complication documented in this encounter Care Teams Antique Jewelry Repairer Relationship Specialty Start Date End Date Patricia Ta DO [address] [place] [address] PCP - General Family Medicine 05/12/22 documented as of this encounter
--- OUTSIDE RECORDS SUMMARY | 2024-04-21 08:47 | External Medical Summary ---
Author Name Unknown Address Unknown Organization [facility] [address] [place] [address] Laboratory Report Ordering Provider Test Date Status NAKUL FALL 02/23/2024 11:36:00 Final Observation Date Value Abnormality Reference (Units ) Status Color of Urine by Auto 02/23/2024 11:36:00 Yellow Light Yellow, Yellow Final Clarity, Urine 02/23/2024 11:36:00 Clear Clear Final Glucose [Mass/volume] in Urine by Automated test strip 02/23/2024 11:36:00 Negative Negative (mg/dL) Final Bilirubin.total [Presence] in Urine by Automated test strip 02/23/2024 11:36:00 Negative Negative Final Ketones [Mass/volume] in Urine by Automated test strip 02/23/2024 11:36:00 Negative Negative (mg/dL) Final Specific gravity, Urine 02/23/2024 11:36:00 1.020 1.003-1.030 Final Hemoglobin [Presence] in Urine by Automated test strip 02/23/2024 11:36:00 Negative Negative Final pH, Urine 02/23/2024 11:36:00 7.0 5.0, 5.5, 6.0, 6.5, 7.0, 7.5 (units) Final Protein [Mass/volume] in Urine by Automated test strip 02/23/2024 11:36:00 Negative Negative (mg/dL) Final Urobilinogen, Urine 02/23/2024 11:36:00 0.2 0.2, 1.0 (mg/dL) Final Nitrite [Presence] in Urine by Automated test strip 02/23/2024 11:36:00 Negative Negative Final Leukocyte esterase [Presence] in Urine by Automated test strip 02/23/2024 11:36:00 Negative Negative Final Performing Location [facility] [address] [place] [address]
--- OUTSIDE RECORDS SUMMARY | 2024-04-21 08:47 | External Medical Summary | Summary of Care ---
Author Name Unknown Organization [facility] Address [address] [facility] [place] [address] Phone [phone] Care Team Providers Care Diaper Machine Tender Name Role Phone Patricia Ta DO Primary Care Provider +1- [phone] Reason for Visit * Reason Comments Return Visit Encounter Details Date Type Department Care Team (Late st Contact Info) Description 02/23/2024 11:30 AM EST Nurse Only Gynecology/Obstetrics [facility] [address] [facility] [place] [address] Gw, Nurse Obgyn Injection [address] [facility] [place] [address] Return Visit Allergies No known active allergiesdocumented as of [...] money to get more. Never true 11/27/2023 [place] Depression Scale Answer Date Recorded [place] Depression Scale Total 0 09/18/2023 The thought [...] s 11/27/2023 Does the household have a [facility] source [facility]? (Household - for ages [...] Sign Reading Time Taken Comments Blood Pressure 118/72 02/23/2024 11:31 AM EST Pulse - - Temperature 37 C (98.6 F) 02/23/2024 11:31 AM EST Respiratory Rate - - Oxygen Saturation - - Inhaled Oxygen Concentration - - Weight 82.1 kg (181 lb) 02/23/2024 11:31 AM EST Height - - Body Mass Index 35.35 12/16/2023 11:28 AM EDT documented in this encounter Nursing Notes * Rita Llamas LPN - 02/23/2024 11:40 AM EST Pt is currently 30w5d with an Estimated Date of Delivery: 04/28/24 - Patient with three days of headache, Took Tylenol 1000mgs x 3 yesterday with no relief. +FM, denies swelling. 1 lb weight gain since last visit. No excessive/sudden increase in swelling. Denies bleeding or leaking/gushing fluid. Urine dip with neg protein. BP WNL. Gave patient Migraine supplement recommendation. documented in this encounter Plan of Treatment Upcoming Encounters Date Type Department Care Team (Late st Contact Info) Description 02/29/2024 4:30 PM EST Office Visit Gynecology/Obstetrics [facility] [address] [place] [address] Zena Nicole PA-C [address] [place] [address] 03/28/2024 12:00 PM EST Telemedicine Psychiatry James Carlson [address] [place] [phone] Clifford Calabrese MD [address] [place] [phone] 06/06/2024 5:40 PM EST Office Visit Family Practice [place] Jaycee Corley [address] [place] [address] Patricia Ta DO [address] [place] [address] Health Maintenance Due Date Last Done Comments [...] Not on filedocumented as of this encounter Procedures Procedure Name Priority Date/Time Associated Diagnosis Comments URINALYSIS OBSTETRICS, POINT OF CARE Routine 02/23/2024 11:36 AM EST Abnormal glucose tolerance in mother complicating documented in this encounter Results * URINALYSIS OBSTETRICS, POINT OF CARE (02/23/2024 11:36 AM EST) Color, Urine Yellow Light Yellow, Yellow 02/23/2024 11:43 AM EST [facility] [place] [facility] Clarity, Urine Clear Clear 02/23/2024 11:43 AM EST [facility] [place] [facility] Glucose, Urine Negative Negative mg/dL 02/23/2024 11:43 AM EST [facility] [place] [facility] Bilirubin, Urine Negative Negative 02/23/2024 11:43 AM EST [facility] [place] [facility] Ketone, Urine Negative Negative mg/dL 02/23/2024 11:43 AM EST [facility] [place] [facility] Specific Gerald, Urine 1.020 1.003 - 1.030 02/23/2024 11:43 AM EST [facility] [place] [facility] Blood, Urine Negative Negative 02/23/2024 11:43 AM EST [facility] [place] [facility] pH, Urine 7.0 5.0, 5.5, 6.0, 6.5, 7.0, 7.5 units 02/23/2024 11:43 AM EST [facility] [place] [facility] Protein, Urine Negative Negative mg/dL 02/23/2024 11:43 AM EST [facility] [place] [facility] Urobilinogen, Urine 0.2 0.2, 1.0 mg/dL 02/23/2024 11:43 AM EST [facility] [place] [facility] Nitrite, Urine Negative Negative 02/23/2024 11:43 AM EST [facility] [place] [facility] Esterase, Urine Negative Negative 02/23/2024 11:43 AM EST [facility] [place] [facility] Urine 02/23/2024 11:3 6 AM EST 02/23/2024 11:43 AM EST Nakul Soria MD LAB POINT OF CARE TE ST DOCKED DEVICE UNSOLICITED RESULTS Final Result [facility] [place] [facility] [facility] [place] [address] documented in this encounter Visit Diagnoses Diagnosis Marijuana use during - Primary Abnormal glucose tolerance in mother complicating Abnormal maternal glucose tolerance, complicating , childbirth, or the puerperium, unspecified as to episode of care documented in this encounter Care Teams Diaper Machine Tender Relationship Specialty Start Date End Date Patricia Ta DO [address] [facility] [place] [address] PCP - General Family Medicine 05/12/22 documented as of this encounter
--- OUTSIDE RECORDS SUMMARY | 2024-04-21 08:47 | External Medical Summary ---
Author Name Unknown Address Unknown Organization K01:LABORATORY [facility] [place] - [address] [facility] [address] Laboratory Report Ordering Provider Test Date Status SUZAN RYAN 03/18/2024 08:25:58 Final Based on ACOG guideline, ges tational diabetes mellitus is diagnosed when any of the following is met:
Fasting is greater than or equal to 95 mg/dL
1 hour is greater than or equal to 180 mg/dL
2 hour is greater than or equal to 155 mg/dL
3 hour is greater than or equal to 140 mg/dL Observation Date Value Abnormality Reference (Units ) Status Glucose, fasting 03/18/2024 08:25:58 81 70- 94 (mg/dL) Final Performing Location LAB[facility]ORY [facility] [place] - [address] [place] [address]
--- OUTSIDE RECORDS SUMMARY | 2024-04-21 08:47 | External Medical Summary ---
Author Name Unknown Address Unknown Organization [id number]:LABORATORY [facility] [place] - [address] [place] [address] Laboratory Report Ordering Provider Test Date Status SUZAN RYAN 03/18/2024 09:26:57 Final Observation Date Value Abnormality Reference (Units ) Status Glucose [Mass/volume] in Serum or Plasma --1 hour post dose glucose 03/18/2024 09:26:57 107 70-179 (mg/dL) Final Performing Location LAB[facility]ATORY [facility] [place] - [address] [place] [address]
--- OUTSIDE RECORDS SUMMARY | 2024-04-21 08:47 | External Medical Summary | Summary of Care ---
Author Name Unknown Organization [facility] Address [address] [facility] [place] [address] Phone [phone] Care Team Providers Care Calender Operator Name Role Phone Patricia Ta DO Primary Care Provider +1- [phone] Reason for Visit * Reason Comments Return Visit Encounter Details Date Type Department Care Team (Late st Contact Info) Description 03/16/2024 1:30 PM EST Office Visit Gynecology/Obstetric s Thom Bonilla [address] [place] [id number] Pretty Younger CRNP [address] [place] [address] Normal in third trimester*; Marijuana use during ; Abnormal glucose tolerance in mother complicating ; Obesity in , antepartum; Anxiety during Allergies No known active allergiesdocumented as of this encounter (statuses as of 03/16/2024) Medications Vitamin B-6 25 MG Oral Tablet [...] mother Use as directed. 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 No regular ctx, leaking, or bleeding. Growth scan today: LORRAINE 24.7 cm, EFW 2524g, cephalic presentation. Labor instructions provided. Would like to get RSV vaccination next visit. Reviewed FK and to call with concerns. 2 week return ABDIFATAH Mcqueen documented in this encounter Nursing Notes * Jacquie Dimas LPN - 03/16/2024 12:43 PM EST 33w6d Growth US today: 2524gm 64% FHR 150 LORRAINE 24.7 documented in this encounter Plan of Treatment Upcoming Encounters Date Type Department Care Team (Late st Contact Info) Description 03/28/2024 12:00 PM EST Telemedicine Psychiatry [place] Carlson [address] [place] [phone] Clifford Calabrese MD [address] [place] [phone] 03/31/2024 10:45 AM EST Office Visit Gynecology/Obstetrics [facility] [address] [place] [address] Jose Alejandro Perez MD [address] [place] [phone] 04/04/2024 11:45 AM EST Office Visit Gynecology/Obstetrics Thom Bonilla [address] [place] [address] Zena Nicole PA-C [address] [place] [address] 06/06/2024 5:40 PM EST Office Visit Family Practice [address], [place] [address] [place] [address] Patricia Ta DO [address] [place] [address] Health Maintenance Due Date Last Done Comments [...] puerperium, antepartum condition or complication Anxiety during documented in this encounter Care Teams Calender Operator Relationship Specialty Start Date End Date Patricia Ta DO [address] [facility] [place] [address] PCP - General Family Medicine 05/12/22 documented as of this encounter
--- OUTSIDE RECORDS SUMMARY | 2024-04-21 08:48 | External Medical Summary ---
Author Name Unknown Address Unknown Organization K01:[facility] [place] [address] [place] [address] Laboratory Report Ordering Provider Test Date Status MAX FREEDMAN 01/29/2024 08:58:41 Final Observation Date Value Abnormality Reference (Units) Status Bacteria identified in Specimen by Culture 01/29/2024 08:58:41 No significant growth Final Test: Culture, Urine, Quant itative
Specimen Source: Urine, Clean Catch
Specimen Type: Urine
Specimen Date: 01/29/2024 0858
Result Date: 01/30/2024 0934
Result Status: Final result
Resulting Lab: [facility]
[address]
[facility] [address]

CULTURE

No significant growth

null Performing Location [facility] [place] - [address] [facility] [address]
--- OUTSIDE RECORDS SUMMARY | 2024-04-21 08:48 | External Medical Summary ---
Author Name Unknown Address Unknown Organization K01:LAB[facility]ATORY [facility] [place] - [address] [facility] [address] Laboratory Report Ordering Provider Test Date Status MAX FREEDMAN 01/29/2024 10:07:51 Final Observation Date Value Abnormality Reference (Units ) Status Glucose, 2-hr post glucose challenge 01/29/2024 10:07:51 126 70-154 (mg/dL) Final Performing Location LAB[facility]ATORY [facility] [place] - [address] [facility] [address]
--- OUTSIDE RECORDS SUMMARY | 2024-04-21 08:48 | External Medical Summary ---
Author Name Unknown Address Unknown Organization K01:[facility] [place] [address] [facility] [address] Laboratory Report Ordering Provider Test Date Status MAX FREEDMAN 01/26/2024 09:04:24 Final Observation Date Value Abnormality Reference (Units ) Status SYNC LEUKOCYTES IN BLOOD BY AUTOMATED COUNT 01/26/2024 09:04:24 11.28 Above high normal 4.00-10.80 (K/uL) Final Segs 01/26/2024 09:04:24 74.2 40.0-75.0 (%) Final Lymphs % 01/26/2024 09:04:24 17.3 Below low normal 18.0-42.0 (%) Final Monos 01/26/2024 09:04:24 5.0 1.0-11.0 (%) Final Eosinophils 01/26/2024 09:04:24 0.9 0.0-6.0 (%) Final Basos 01/26/2024 09:04:24 0.5 0.0-2.0 (%) Final Immature Granulocyte, Percent 01/26/2024 09:04:24 2.1 Above high normal 0.0-2.0 (%) Final Absolute Segs 01/26/2024 09:04:24 8.37 Above high normal 1.80-7.70 (K/uL) Final Lymphs, absolute 01/26/2024 09:04:24 1.95 1.00-4.80 (K/ul) Final Monos, Abs 01/26/2024 09:04:24 0.56 0.00-1.10 (K/uL) Final Eos, Abs 01/26/2024 09:04:24 0.10 0.00-0.70 (K/uL) Final Basos, Abs 01/26/2024 09:04:24 0.06 0.00-0.20 (K/uL) Final Immature Granulocytes, Number 01/26/2024 09:04:24 0.24 Above high normal 0.00-0.20 (K/uL) Final Performing Location [facility] [place] [address] [place] [address]
--- OUTSIDE RECORDS SUMMARY | 2024-04-21 08:48 | External Medical Summary | Summary of Care ---
Author Name Unknown Organization [facility] Address [address] [place] [address] Phone [phone] Care Team Providers Care Cloth Doubling Machine Operator Name Role Phone Patricia Ta DO Primary Care Provider +1- [phone] Reason for Visit * Reason Comments Outpatient Testing Encounter Details Date Type Department Care Team ([facility] st Contact Info) Description 01/26/2024 8:10 AM EDT Laboratory Laboratory [facility] [place] [address] [place] [address] [place] [address] [place], [place] [id number] 24 weeks gestation of Allergies No known active allergiesdocumented as of this encounter (statuses as of 01/26/2024) Medications Medication Sig Dispensed Refills Start Date [...] the morning. 30 Tablet 2 01/21/2024 Active documented as of this encounter (statuses as of 01/26/2024) Active Problems Problem Noted Date Diagnosed Date Marijuana use during 09/22/2023 Overview: Screen positive at [facility]. NANCY (generalized anxiety disorder) 11/17/2016 Estimated Date of Delivery Comme nts Yes 04/28/2024 Based on last me nstrual period of 07/23/2023 (Exact Date) documented as of this encounter (statuses as of 01/26/2024) Resolved Problems Problem Noted Date Diagnosed Date Resolved Date Heroin abuse 02/27/2021 05/12/2022 Depression 05/16/2020 05/12/2022 Supervision of normal first 05/16/2020 05/16/2020 Tobacco use disorder 05/16/2020 023 Migraine 08/06/2011 05/12/2022 Allergic rhinitis 05/12/2022 Celiac disease 05/12/2022 documented as of this encounter (statuses as of 01/26/2024) Immunizations Name Administration Dates Next Due DTaP [...] TDAP, Age 7 and older, IM (Adacel) 02/05/2010 Varicella Vaccine (Chicken Pox) 02/05/2010,02/05,12/19/1999 documented as [...] money to get more. Never true 11/27/2023 [place] Depression Scale Answer Date Recorded [place] Depression Scale Total 0 09/18/2023 The thought [...] Care Team (Late st Contact Info) Description 01/28/2024 8:00 AM EDT [facility] [address] [place] [phone] Sammy Champion [place] [address] [place] [place] [address] 02/05/2024 2:45 PM EDT Office Visit Gynecology/Obstetrics [facility] [address] [place] [address] Susana Roa CRNP [address] [place] [address] 03/28/2024 12:00 PM EST Telemedicine Psychiatry [place] [address] [place] [phone] Clifford Calabrese MD [address] [place] [phone] 06/06/2024 5:40 PM EST Office Visit Family Practice [place] [address] [place] [address] Patricia Ta DO [address] [place] [address] Pending Results Name Type Priority Associated Diagnoses Date /Time CBC WITH WBC DIFFERENTIAL AND ANEMIA REFLEX WORKUP Lab Routine 24 weeks gestation of 01/26/2024 9:04 AM EDT SYPHILIS ANTIBODY SCREEN WITH REFLEX TO RPR Lab Routine 24 weeks gestation of 01/26/2024 9:04 AM EDT 50-G GESTATIONAL GLUCOSE, 1 HOUR Lab Routine 24 weeks gestation of 01/26/2024 9:04 AM EDT ANEMIA CBC Lab Routine 24 weeks gestation of 01/26/2024 9:04 AM EDT DIFFERENTIAL, AUTOMATED Lab Routine 24 weeks gestation of 01/26/2024 9:04 AM EDT ANEMIA REFLEX CHEMISTRY HOLD Lab Routine 24 weeks gestation of 01/26/2024 9:04 AM EDT SYPHILIS ANTIBODY SCREEN Lab Routine 24 weeks gestation of 01/26/2024 9:04 AM EDT Health Maintenance Due Date Last Done Comments HPV (Gardasil) Vaccine (1 - 3-dose series) 2013 COVID-19 Vaccine ( season) 2023 Depression Screening 04/17/2024 04/17/2023 Pap Smear 06/23/2025 06/23/2022 DTap/Tdap Vaccines (9 - Td or Tdap) 08/05/2033 08/06/2023, 02/05/2010, 02/05/2010, Additional history exists MENINGOCOCCAL (MENACTRA/MENVEO) Aged [...] as of this encounter Visit Diagnoses Diagnosis 24 weeks gestation of state, incidental documented in this encounter Care Teams Cloth Doubling Machine Operator Relationship Specialty Start Date End Date Patricia Ta [facility] [address] [facility] [id number] PCP - General Family Medicine 05/12/22 documented as of this encounter
--- OUTSIDE RECORDS SUMMARY | 2024-04-21 08:48 | External Medical Summary | Summary of Care ---
Author Name Unknown Organization [facility] Address [address] [place] [address] Phone [phone] Care Team Providers Care Refund Specialist Name Role Phone Patricia Ta DO Primary Care Provider +1- [phone] Reason for Visit * Reason Comments Outpatient Testing Encounter Details Date Type Department Care Team ([facility] st Contact Info) Description 01/29/2024 8:20 AM EDT Laboratory Laboratory, [facility] [address] [place] [phone] [facility], Lab [address] [place] [address] [employer] Other*[id number]; Abnormal glucose tolerance in mother complicating Allergies No known active allergiesdocumented as of this encounter (statuses as of 01/29/2024) Medications Medication Sig Dispensed Refills Start Date [...] as of this encounter (statuses as of 01/29/2024) Active Problems Problem Noted Date Diagnosed Date Abnormal glucose tolerance in mother complicatin g 01/27/2024 Marijuana use during 09/22/2023 Overview: Screen positive at [facility]. NANCY (generalized anxiety disorder) 11/17/2016 Estimated Date of Delivery Comme nts Yes 04/28/2024 Based on last me nstrual period of 07/23/2023 (Exact Date) documented as of this encounter (statuses as of 01/29/2024) Resolved Problems Problem Noted Date Diagnosed Date Resolved Date Heroin abuse 02/27/2021 05/12/2022 Depression 05/16/2020 05/12/2022 Supervision of normal first 05/16/2020 05/16/2020 Tobacco use disorder 05/16/2020 023 Migraine 08/06/2011 05/12/2022 Allergic rhinitis 05/12/2022 Celiac disease 05/12/2022 documented as of this encounter (statuses as of 01/29/2024) Immunizations Name Administration Dates Next Due DTaP [...] money to get more. Never true 11/27/2023 [place] Depression Scale Answer Date Recorded [place] Depression Scale Total 0 09/18/2023 The thought [...] Care Team (Late st Contact Info) Description 02/05/2024 2:45 PM EDT Office Visit Gynecology/Obstetrics Thom Bonilla [address] [place] [address] Susana Roa CRNP [address] [place] [address] 03/28/2024 12:00 PM EST Telemedicine Psychiatry [place] [address] [place] [phone] Clifford Calabrese MD [address] [place] [phone] 06/06/2024 5:40 PM EST Office Visit Family Practice [address], [place] [address] [place] [address] Patricia Ta DO [address] [facility] [address] Pending Results Name Type Priority Associated Diagnoses Date /Time MYCODE SUBSEQUENT ADULT Lab Routine [employer] Other*[id number] 01/29/2024 8:03 AM EDT GESTATIONAL GLUCOSE TOLERANCE, 3 HOUR Lab Routine Abnormal glucose tolerance in mother complicating 01/29/2024 8:03 AM EDT MYCODE SST1 Lab Routine [employer] Other*[id number] 01/29/2024 8:03 AM EDT MYCODE SST2 Lab Routine [employer] Other*[id number] 01/29/2024 8:03 AM EDT 100-G GESTATIONAL GLUCOSE, FASTING Lab Routine Abnormal glucose tolerance in mother complicating 01/29/2024 8:03 AM EDT 100-G GESTATIONAL GLUCOSE, 1 HOUR Lab Routine Abnormal glucose tolerance in mother complicating 01/29/2024 9:07 AM EDT 100-G GESTATIONAL GLUCOSE, 2 HOUR Lab Routine Abnormal glucose tolerance in mother complicating 01/29/2024 10:07 AM EDT 100-G GESTATIONAL GLUCOSE, 3 HOUR Lab Routine Abnormal glucose tolerance in mother complicating 01/29/2024 11:08 AM EDT Health Maintenance Due Date Last [...] as of this encounter Visit Diagnoses Diagnosis [employer] Other*[id number] Abnormal glucose tolerance in mother complicating Abnormal maternal glucose tolerance, complicating , childbirth, or the puerperium, unspecified as to episode of care documented in this encounter Care Teams Refund Specialist Relationship Specialty Start Date End Date Patricia Ta DO [address] [facility] [place] [address] PCP - General Family Medicine 05/12/22 documented as of this encounter
--- OUTSIDE RECORDS SUMMARY | 2024-04-21 08:48 | External Medical Summary | Summary of Care ---
Author Name Unknown Organization [facility] Address [address] [place] [address] Phone [phone] Care Team Providers Care Heater Operator Helper Name Role Phone Patricia Ta DO Primary Care Provider [phone]- [phone] Reason for Visit * - Authorized Specialty Diagnoses / Procedures Referred By Contumesh t Referred To Contact Referral ID Status Reason Start Date Expiration Date V isits Requested Visits Authorized [id number] Authorized 01/12/2024 01/10/2025 [id number] Encounter Details Date Type Department Care Team (Late st Contact Info) Description 01/21/2024 9:30 AM EDT Telemedicine Psychiatry [place] [address] [place] [address] Clifford Calabrese MD [address] [place] [address] NANCY (generalized anxiety disorder)*; Opioid dependence in remission (HCC); Methamphetamine use disorder, mild, in sustained remission (HCC) Allergies No known active allergiesdocumented as of this encounter (statuses as of 01/21/2024) Medications Medication Sig Dispensed Refills Start Date [...] the morning. 30 Tablet 2 01/21/2024 Active Citalopram Hydrobromide 10 MG Oral Tablet (CeleXA) Take 1 Tablet by mouth in the morning. 30 Tablet 2 11/19/2023 01/21/2024 Discontinued (Refill) documented as of this encounter (statuses as of 01/21/2024) Active Problems Problem Noted Date Diagnosed Date Marijuana use during 09/22/2023 Overview: Screen positive at [facility]. NANCY (generalized anxiety disorder) 11/17/2016 Estimated Date of Delivery Comme nts Yes 04/28/2024 Based on last me nstrual period of 07/23/2023 (Exact Date) documented as of this encounter (statuses as of 01/21/2024) Resolved Problems Problem Noted Date Diagnosed Date Resolved Date Heroin abuse 02/27/2021 05/12/2022 Depression 05/16/2020 05/12/2022 Supervision of normal first 05/16/2020 05/16/2020 Tobacco use disorder 05/16/2020 023 Migraine 08/06/2011 05/12/2022 Allergic rhinitis 05/12/2022 Celiac disease 05/12/2022 documented as of this encounter (statuses as of 01/21/2024) Immunizations Name Administration Dates Next Due DTaP [...] money to get more. Never true 11/27/2023 [place] Depression Scale Answer Date Recorded [place] Depression Scale Total 0 09/18/2023 The thought [...] Progress Notes * Clifford Calabrese MD - 01/21/2024 9:39 AM EDT Outpatient Telepsychiatry Follow up Note Division of Psychiatry [facility] Patient location: HOME. I was not in a hospital or clinic location. After connecting through televideo, patient was verified with two unique identifiers. Patient (or authorized legal customer solutions representative) was then informed that this was a Telemedicine visit and being conducted confidentially over secure lines. My office door was closed. No one else was in the room with me. Methods to assure confidentiality were taken. I informed the patient that I have reviewed their record in Epic and presented the opportunity for them to ask any questions regarding the visit today. The patient agreed to participate. Patient acknowledged consent and understanding of privacy and security of the Telemedicine visit. The patient agreed to participate. Rights and responsibilities of treatment discussed. Patient informed that the session will be held in keeping with [facility] policies and procedures as well as [facility] regulations. Documentation of sessions will be recorded in the [facility] medical record which,in an integrated health care system, is viewable by other [facility] care providers with a legitimate need to [...] are: Child abuse/neglect-this provider is a mandated well services operator for child abuse/neglect in the [facility]. If I become aware of child abuse or neglect I am legally required to file a report. Imminent Risk-if a person coming before me is at risk for imminently harming themselves or someone else, it is my legal responsibility to take action to protect life/ensure safety. Court Orders-while rare, I can be compelled to testify in court if required by a inspector handbag frames or legal order. This most often occurs [...] hospital or clinic location. After connecting through [employer]ad[employer]To, patient was verified with two unique identifiers. Patient (or authorized legal customer solutions representative) was then informed that this was [...] psychiatrist in 2019. She did go to [facility] rehab [place] twice in June 2020 and then in October 2020 for heroin and meth. She has reportedly been clean from substances since then. She never got Suboxone. She briefly saw a psychiatrist within [facility] about 4 years ago.She then dropped out of care. Shereportedly started intermittently self-medicating with methamphetamine and heroin in 2017 for about3 years. During that period she [...] seen by me on July 24). Currently 26 weeks - reportedly growth is good. Due date is April 26 2024. 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 Salary was better. No weekends or holidays, first shift 7am- 330 pm. She is starting on January 31. 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 Her mother and siblings are reportedly excited and plan to help. Her sister may be also able to help. Future oriented, hopeful. She does use medical marijuana. She does have things that she enjoys. She does reports situational anxiety. Jesi Coleman denies any change in medical history or medications since last visit. Supportive therapy skills employed. Psychoeducation provided. Psychotherapy start time: 0943 am Psychotherapy end time: 1000 am Medication side effects: denies Suicidal thoughts: denies Feeling down: denies Irritability: no Anxiety: no 01/21/24 NANCY-7:2 minimal Past Medical History: Diagnosis Date Allergic Allergic rhinitis spring Anxiety Constipation Depression 05/16/2020 NANCY (generalized anxiety disorder) 11/17/2016 Migraine no aura [...] by mouth in the morning. 30 Tablet2 No current facility-administered medications for this visit. No medication comments found. RECENT LABS/IMAGING: Recent Results (from the past 2016 hour(s)) MATERNAL SERUM AFP Collection Time: 11/27/23 1:10 PM Result Value Ref Range Interpretation SEE BELOW Risk for ONTD <1:5000 CALC'D Gestational Age 18.1 AFB, Serum 46.8 ng/mL AFP Mom 1.09 Date of 2000 Collection Date 11/27/2023 Maternal Weight 161 lbs EST'D Date of Delivery 04/28/2024 FARNAZ Determined By NG Mother's Ethnic Origin WHITE Number of Fetuses 1 Insulin Depend Diabetic NO Repeat Specimen NO HX of Neural Tube Defects NO Prev Down SYND NO Donor Egg NO Donor Age: Egg Retrieval NOT GIVEN ECHO, COMPLETE (2D), TRANS-THORACIC Collection Time: 12/17/23 1:35 PM Result Value Ref Range LEFT VENTRICULAR EJECTION FRACTION 55 % VITALS BP Readings from Last 4 Encounters: 01/08/24 104/62 12/16/23 108/68 12/11/23 102/64 11/13/23 90/60 Pulse Readings from Last 4 Encounters: 12/16/23 84 08/17/23 105 06/01/23 74 12/23/22 60 Wt Readings from Last 3 Encounters: 01/08/24 76.7 kg (169 lb 3.2 oz) 12/16/23 77.1 kg (170 lb) 12/11/23 75.3 kg (166 lb) There is no height or weight [...] of life events ASSESSMENT AND TREATMENT PLAN: [place] Suicide Severity Rating Scale Since Last Contact [...] for higher level of care (Inpatient or [facility]) Consultation with Emergency Services as appropriate If patient not admitted: Complete or review crisis plan with patient Discuss risk/protective factors and reasons for living Advise removal of means Consider family or collateral contact to promote safety Schedule follow up care consistent with assessment NANCY (generalized anxiety disorder) (Primary) Opioid dependence in remission (HCC) Methamphetamine use disorder, mild, in sustained remission (HCC) During this session, a CRISIS plan was [...] not developed - due at next visit B. Medication management. After discussing options, recommendations and alternatives, we agreed on the following. Monitor effectiveness and SE. Informed consent obtained. Slow med changes and one at a time. SSRIs first line for working diagnoses. Currently - Continue Celexa 10 mg QD. Have reviewedrisks and benefits. D. Will encourage continuous therapy. Extensive psychoeducation provided on natural history of NANCY and role of thought distortions as well [...] Certified Adult Psychiatrist and Sleep Medicine Physician [facility] documented in this encounter Plan of Treatment Upcoming Encounters Date Type Department Care Team (Late st Contact Info) Description 01/28/2024 8:00 AM EDT Laboratory Laboratory [address], [place] [address] [place] [id number] [place], Lab [address] [place] [address] 02/05/2024 2:45 PM EDT Office Visit Gynecology/Obstetrics [facility] [address] [place] [address] Susana Roa CRNP [address] [place] [address] 03/28/2024 12:00 PM EST [place] [place] [facility] [address] [place] [address] Clifford Calabrese MD [address] [place] [address] 06/06/2024 5:40 PM EST Office Visit Family Practice [address], [place] [address] [facility] [place] [address] Patricia Ta DO [address] [place] [address] Health Maintenance Due Date Last Done Comments HPV (Gardasil) Vaccine (1 - 3-dose series) 2013 COVID-19 Vaccine ( - season) 2023 Depression Screening 04/17/2024 04/17/2023 Pap [...] as of this encounter Visit Diagnoses Diagnosis NANCY (generalized anxiety disorder)- Primary Generalized anxiety disorder Opioid dependence in remission (HCC) Opioid type dependence, in remission Methamphetamine use disorder, mild, in sustained remission (HCC) documented in this encounter Care Teams Heater Operator Helper Relationship Specialty Start Date End Date Patricia Ta DO [address] [facility] [place] [address] PCP - General Family Medicine 05/12/22 documented as of this encounter
--- OUTSIDE RECORDS SUMMARY | 2024-04-21 08:48 | External Medical Summary ---
Author Name Unknown Address Unknown Organization [id number]:LABORATORY [facility] - [address] [facility] [address] Laboratory Report Ordering Provider Test Date Status MAX FREEDMAN 01/29/2024 08:03:24 Final Based on ACOG guideline, ges tational [...] Abnormality Reference (Units ) Status Glucose, fasting 01/29/2024 08:03:24 83 70- 94 (mg/dL) Final Performing Location LABORATORY [facility] [address] [facility] [address]
--- OUTSIDE RECORDS SUMMARY | 2024-04-21 08:48 | External Medical Summary ---
Author Name Unknown Address Unknown Organization [id number]:LABORATORY [facility] [place] - [address] [place] [address] Laboratory Report Ordering Provider Test Date Status MAX FREEDMAN 01/26/2024 09:04:24 Final Observation Date Value Abnormality Reference (Units ) Status Glucose [Moles/volume] in Serum or Plasma --1 hour post 50 g glucose PO 01/26/2024 09:04:24 152 Above high normal 70-129 (mg/dL) Final Performing Location LABORATORY [facility] - [address] [place] [address]
--- OUTSIDE RECORDS SUMMARY | 2024-04-21 08:48 | External Medical Summary ---
Author Name Unknown Address Unknown Organization [id number]:[facility] [place] [address] [facility] [address] Laboratory Report Ordering Provider Test Date Status MAX FREEDMAN 01/26/2024 09:04:24 Final Observation Date Value Abnormality Reference (Units ) Status Treponema pallidum Ab [Presence] in Serum by Immunoassay 01/26/2024 09:04:24 Nonreactive Nonreactive Final No serologic evidence of syp hilis. No additional testing clinicially indicated at this time. Consider repeat testing in 2-4 weeks if acute or primary syphilis is suspected. Performing Location [facility] [place] [address] [place] [address]
--- OUTSIDE RECORDS SUMMARY | 2024-04-21 08:48 | External Medical Summary | Summary of Care ---
Author Name Unknown Organization [facility] Address [address] [place] [address] Phone [phone] Care Team Providers Care Artist Manager Name Role Phone Patricia Ta DO Primary Care Provider +1- [phone] Reason for Visit * Reason Comments Outpatient Testing Encounter Details Date Type Department Care Team ([facility] st Contact Info) Description 01/26/2024 8:10 AM EDT Laboratory Laboratory [facility], [place] [address] [facility] [place] [address] [place], Lab [facility] [address] [facility] [place] [id number] 24 weeks gestation of Allergies No known active allergiesdocumented as of this encounter (statuses as of 01/27/2024) Medications Medication Sig Dispensed Refills Start Date [...] as of this encounter (statuses as of 01/27/2024) Active Problems Problem Noted Date Diagnosed Date Abnormal glucose tolerance in mother complicatin g 01/27/2024 Marijuana use during 09/22/2023 Overview: Screen positive at [facility]. NANCY (generalized anxiety disorder) 11/17/2016 Estimated Date of Delivery Comme nts Yes 04/28/2024 Based on last me nstrual period of 07/23/2023 (Exact Date) documented as of this encounter (statuses as of 01/27/2024) Resolved Problems Problem Noted Date Diagnosed Date Resolved Date Heroin abuse 02/27/2021 05/12/2022 Depression 05/16/2020 05/12/2022 Supervision of normal first 05/16/2020 05/16/2020 Tobacco use disorder 05/16/2020 023 Migraine 08/06/2011 05/12/2022 Allergic rhinitis 05/12/2022 Celiac disease 05/12/2022 documented as of this encounter (statuses as of 01/27/2024) Immunizations Name Administration Dates Next Due DTaP [...] money to get more. Never true 11/27/2023 [place] Depression Scale Answer Date Recorded [place] Depression Scale Total 0 09/18/2023 The thought [...] as of this encounter Miscellaneous Notes * Addendum Note - Jasmina Martinez PA-C - 01/27/2024 11:52 AM EDTAddended by: JASMINA MARTINEZ on: 01/27/2024 11:52 AM Modules accepted: Orders * Result Encounter Note - Jasmina Martinez PA-C - 01/27/2024 11:50 AM EDT Syphilis screening was negative. Please inform patient * Result Encounter Note - Fallon Alexander LPN - 01/27/2024 9:42 AM EDT Notified pt of results/provider message. Pt verbalized understanding * Result Encounter Note - Jasmina Martinez PA-C - 01/27/2024 8:06 AM EDT Please let patient know her 1 hour GTT was elevated. This needs further evaluation with 3 hr GTT toconfirm or rule out gestational diabetes. She should fast for 8 hours prior to test. Longer periodsof fasting can cause false elevations. Also please remind her to take a snack along to eat after the test is complete but before she leaves, as this test can cause low blood sugar. Also please tell her to alert the lab staff if she is experiencing any signs of hypoglycemia, including but not limited to tremor, palpitations, anxiety, sweating, hunger, and paresthesias. The order has been placed. Please help her schedule. Her CBC shows no anemia documented in this encounter Plan of Treatment Upcoming Encounters Date Type Department Care Team (Late st Contact Info) Description 01/29/2024 8:20 AM EDT Laboratory Laboratory[address] [address] [facility], Lab [address] [place] [address] 02/05/2024 2:45 PM EDT Office Visit [facility] [address] [place] [address] Susana Roa CRNP [address] [place] [address] 03/28/2024 12:00 PM EST Telemedicine Psychiatry [place] [address] [place] [address] Clifford Calabrese MD [address] [place] [address] 06/06/2024 5:40 PM EST Office Visit Family [facility] [address], [place] [address] [place] [address] Patricia Ta DO [address] [place] [address] Scheduled Orders Name Type Priority Associated Diagnoses Orde r Schedule CULTURE, URINE, QUANTITATIVE Lab Routine 24 weeks gestation of Ordered: 01/27/2024 Health Maintenance Due Date Last Done Comments [...] Procedure Name Priority Date/Time Associated Diagnosis Comments ANEMIA REFLEX CHEMISTRY HOLD Routine 01/26/2024 9:04 AM EDT 24 weeks gestation of SYPHILIS ANTIBODY SCREEN Routine 01/26/2024 9:04 AM EDT 24 weeks gestation of ANEMIA CBC Routine 01/26/2024 9:04 AM EDT 24 weeks gestation of DIFFERENTIAL, AUTOMATED Routine 01/26/2024 9:04 AM EDT 24 weeks gestation of DIFFERENTIAL, AUTOMATED Routine 01/26/2024 9:04 AM EDT 24 weeks gestation of SYPHILIS ANTIBODY SCREEN WITH REFLEX TO RPR Routine 01/26/2024 9:04 AM EDT 24 weeks gestation of 50-G GESTATIONAL GLUCOSE, 1 HOUR Routine 01/26/2024 9:04 AM EDT 24 weeks gestation of documented in this encounter Results * SYPHILIS ANTIBODY SCREEN (01/26/2024 9:04 AM EDT) [facility] Syphilis Screen Interpretation Nonreactive Nonreactive 01/27/2024 9:55 AM EDT LABORATORY [facility] Comment:No serologic evidenc e of syphilis. No additional testing clinicially indicated at this time. Consider repeat testing in 2-4 weeks if acute or primary syphilis is suspected. Blood Venous blood specimen / Unknown Venipuncture / Unknown 01/26/2024 9:04 AM EDT 01/26/2024 9:04 AM EDT Jasmina Martinez PA-C LAB BLOOD CHIRAG SCHAEFER Performing Organization Address City/[facility] Co de Phone Number LABORATORY [facility] [address] [place] [address] * ANEMIA REFLEX CHEMISTRY HOLD (01/26/2024 9:04 AM EDT) Blood Venous blood specimen / Unknown Venipuncture / Unknown 01/26/2024 9:04 AM EDT 01/26/2024 9:04 AM EDT Jasmina Martinez PA-C LAB BLOOD ORDDanielle SCHAEFER LABORATORY [facility] [address] [place] [address] * (ABNORMAL) DIFFERENTIAL, AUTOMATED (01/26/2024 9:04 AM EDT) [facility] Signature WBC 11.28(H) 4.00 - 10.80 K/uL 01/26/2024 11:21 PM EDT LAB[facility]ATORY [facility] Neutrophils % 74.2 40.0 - 75.0 % 01/26/2024 11:21 PM EDT LAB[facility]ATORY [facility] Lymphocytes % 17.3(L) 18.0 - 42.0 % 01/26/2024 11:21 PM EDT LAB[facility]ATORY [facility] Monocytes % 5.0 1.0 - 11.0 % 01/26/2024 11:21 PM EDT LAB[facility]ORY [facility] Eosinophils % 0.9 0.0 - 6.0 % 01/26/2024 11:21 PM EDT LAB[facility]ORY [facility] Basophils % 0.5 0.0 - 2.0 % 01/26/2024 11:21 PM EDT [facility]ORY [facility] Immature Granulocytes % 2.1(H) 0.0 - 2.0 % 01/26/2024 11:21 PM EDT LAB[facility]ORY [facility] Absolute Neutrophils 8.37(H) 1.80 - 7.70 K/uL 01/26/2024 11:21 PM EDT LAB[facility]ATORY [facility] Absolute Lymphocytes 1.95 1.00 - 4.80 K/ul 01/26/2024 11:21 PM EDT LAB[facility] Absolute Monocytes 0.56 0.00 - 1.10 K/uL 01/26/2024 11:21 PM EDT LAB[facility]ORY [facility] Absolute Eosinophils 0.10 0.00 - 0.70 K/uL 01/26/2024 11:21 PM EDT LAB[facility]ORY [facility] Absolute Basophils 0.06 0.00 - 0.20 K/uL 01/26/2024 11:21 PM EDT LAB[facility]ORY [facility] Absolute Immature Granulocytes 0.24(H) 0.00 - 0.20 K/uL 01/26/2024 11:21 PM EDT LAB[facility]ORY [facility] Blood Venous blood specimen / Unknown Venipuncture / Unknown 01/26/2024 9:04 AM EDT 01/26/2024 9:04 AM EDT Jasmina Martinez PA-C LAB BLOOD CHIRAG SCHAEFER [facility] Organization Address City/State/ZIP Co de Phone Number LAB[facility]ATORY [facility] [address] [place] [address] * (ABNORMAL) ANEMIA CBC (01/26/2024 9:04 AM EDT) WBC 11.28(H) 4.00 - 10.80 K/uL 01/26/2024 11:21 PM EDT LAB[facility]ORY [facility] RBC 4.00 3.85 - 5.15 M/uL 01/26/2024 11:21 PM EDT LAB[facility]ORY [facility] HGB 12.4 12.0 - 15.3 g/dL 01/26/2024 11:21 PM EDT LAB[facility]ORY [facility] Comment: Anemia reflex testing triggers on a HGB < 12.0 for Females and HGB < 13.0 for Males in accordance with the WHO Anemia Guidelines Anemia reflex testing triggers on a HGB < 12.0 for Females and HGB < 13.0 for Males in accordance with the WHO Anemia Guidelines HCT 37.4 36.0 - 45.2 % 01/26/2024 11:21 PM EDT LAB[facility]ORY [facility] MCV 93.5 81.5 - 97.5 fL 01/26/2024 11:21 PM EDT LAB[facility] MCH 31.0 27.0 - 34.0 pg 01/26/2024 11:21 PM EDT LAB[facility] MCHC 33.2 32.0 - 36.0 g/dL 01/26/2024 11:21 PM EDT LAB[facility] RDW 13.2 11.5 - 15.5 % 01/26/2024 11:21 PM EDT LAB[facility] PLT 337 140 - 400 K/uL 01/26/2024 11:21 PM EDT LAB[facility] MPV 8.2 6.6 - 11.1 fL 01/26/2024 11:21 PM EDT [facility] nRBCs 0 <=0 /100 WBCs 01/26/2024 11:21 PM EDT [facility]ORY [facility] Blood Venous blood specimen / Unknown Venipuncture / Unknown 01/26/2024 9:04 AM EDT 01/26/2024 9:04 AM EDT Jasmina Martinez PA-C LAB BLOOD ORDE WENDYOSEAS Performing Organization Address City/[facility]/ZIP Co de Phone Number LABORATORY [facility] [address] [place] [address] * (ABNORMAL) 50-G GESTATIONAL GLUCOSE, 1 HOUR (01/26/2024 9:04 AM EDT) 50-g Gestational Glucose, 1 Hour 152(H) 70 - 129 mg/dL 01/26/2024 11:16 PM EDT LABORATORY [facility] Blood Venous blood specimen / Unknown Venipuncture / Unknown 01/26/2024 9:04 AM EDT 01/26/2024 9:04 AM EDT Jasmina Martinez PA-C LAB BLOOD SHADEE OLIVE Performing Organization Address [facility] Co de Phone Number LABORATORY [facility] [address] [place] [address] documented in this encounter Visit Diagnoses Diagnosis 24 weeks gestation of state, incidental documented in this encounter Care Teams Artist Manager Relationship Specialty Start Date End Date Patricia Ta DO [address] [facility] [place] [address] PCP - General Family Medicine 05/12/22 documented as of this encounter
--- OUTSIDE RECORDS SUMMARY | 2024-04-21 08:48 | External Medical Summary | Summary of Care ---
Author Name Unknown Organization [facility] Address [address] [facility] [place] [address] Phone [phone] Care Team Providers Care Waste Machine Tender Name Role Phone Patricia Ta DO Primary Care Provider +1- [phone] Reason for Visit * Reason Comments Return Visit 24w1d Encounter Details Date Type Department Care Team (Late st Contact Info) Description 01/08/2024 1:00 PM EDT Office Visit Gynecology/Obstetric [place] and[place] [address] [facility] [place] [address] Deb Martinez PA-C [address] [place] [address] 24 weeks gestation of *; Marijuana use during Allergies No known active allergiesdocumented as of this encounter (statuses as of 01/08/2024) Medications Medication Sig Dispensed Refills Start Date [...] in the morning. 30 Tablet 2 11/19/2023 Active documented as of this encounter (statuses as of 01/08/2024) Active Problems Problem Noted Date Diagnosed Date Marijuana use during 09/22/2023 Overview: Screen positive at [facility]. 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 Never true 11/27/2023 [place] Depression Scale Answer Date Recorded [place] Depression Scale Total 0 09/18/2023 The thought [...] Sign Reading Time Taken Comments Blood Pressure 104/62 01/08/2024 12:51 PM EDT Pulse - - Temperature 37.5 C (99.5 F) 01/08/2024 12:51 PM E DT Respiratory Rate - - Oxygen Saturation - - Inhaled Oxygen Concentration - - Weight 76.7 kg (169 lb 3.2 oz) 01/08/2024 12:51 PM EDT Height - - Body Mass Index 33.04 12/16/2023 11:28 AM EDT documented in this encounter Patient Instructions * Patient Instructions* Deb Martinez PA-C - 01/08/2024 1:03 PM EDT General Considerations Surrounding Immunization During The [employer] recommends routine assessment of each womans immunization status and administration of indicated immunizations. Importantly, evolving data demonstrate maternal and protection against an increasing number of aggressive pathogens through the use of maternal immunization, suggesting is an optimal time to immunize for disease prevention in women and newborns. There is no evidence of adverse effects from vaccinating women with an inactivated virus or bacterial vaccines or toxoids, and a growing body of robust data demonstrate safety of such use. Concomitant administration of indicated modesta ctivated vaccines during (ie, Tdap and influenza) is also acceptable, safe, and may optimize effectiveness of immunization efforts. Furthermore, no evidence exists that suggests that any vaccine is associated with an increased risk of autism or adverse effects due to exposure to traces ofthe mercury- containing preservative thimerosal 23 24 25 26. The Tdap vaccines do not contain thimerosal. The benefits of inactivated vaccines outweigh any unproven potential concerns. It is importantto remember that live attenuated vaccines (eg, ognteya-vutfs-uxexhcu [MMR], varicella, and live attenuated influenza vaccine) do pose a theoretical risk (although never documented or proved) to the fetus and generally should be avoided during . The [employer] (ACOG) makes the following recommendations: Obstetric care providers should administer the tetanus toxoid, reduced diphtheria toxoid, and acellular pertussis (Tdap) vaccine to all patients during each , as early in the 70-25-hddzi-of-gestation window as possible. women should be counseled that the administration of the Tdap vaccine during each is safe and important to make sure that each receives the highest possible protection against pertussis at . Partners, family members, and infant caregivers should be offered the Tdap vaccine if they have notpreviously been vaccinated. Ideally, all family members should be vaccinated at least 2 weeks before coming in contact with the . If not administered during , the Tdap vaccine should be given immediately if the woman has never received a prior dose of Tdap as an adolescent, adult, or during a previous . Adapted from ACOG https://www.acog.org/en/Clinical/Clinical%20Guidance/Committee%20Opinion/Article s//Update%20o n%20Immunization%20and%20Pregnancy%20Tetanus%20Diphtheria%20and%20Pertussis%20Va ccination documented in this encounter Progress Notes * Deb Martinez PA-C - 01/08/2024 1:01 PM EDT Jesi Coleman is a 23 year old female here for her routine OB appointment at 24w1d . Her Estimated Date of Delivery: 04/28/24 REVIEW OF SYSTEMS: She affirms movement. Denies vaginal bleeding, LOF, contractions, N/V + once weekly headaches, typically resolves on own. Has met with cardiology, increasing hydration has helped to decreased hydration PHYSICAL EXAM: Filed Vitals: 01/08/24 1251 BP: 104/62 Temp: 37.5 C (99.5 F) TempSrc: Tympanic Weight: 76.7 kg (169 lb 3.2 oz) ASSESSMENT/PLAN: (O99.320, F12.90) Marijuana use during Supervision of - we reviewed and ordered GTT and CBC for patient to complete between now and her next visit - reviewed recommendation for tdap vaccine at next visit, information given - RTO in 4 weeks Deb Martinez PA-C documented in this encounter Nursing Notes * Trina King CMA - 01/08/2024 12:50 PM EDT Chief Complaint Patient presents with Return Visit 24w1d Pt agreeable to labs being ordered. Received flu vaccine last week documented in this encounter Plan of Treatment Upcoming Encounters Date Type Department Care Team (Late st Contact Info) Description 01/21/2024 9:30 AM EDT Telemedicine Psychiatry [place] [address] [place] [phone] Clifford Calabrese MD [address] [place] [address] 02/05/2024 2:45 PM EDT Office Visit Gynecology/Obstetrics Thom Bonilla [address] [facility] [place] [address] Susana oRa CRNP [address] [place] [address] 06/06/2024 5:40 PM EST Office Visit Family Practice [address], [place] [address] [place] [address] Patricia Ta DO [address] [place] [address] Scheduled Orders Name Type Priority Associated Diagnoses Orde r Schedule CBC WITH WBC DIFFERENTIAL AND ANEMIA REFLEX WORKUP Lab Routine 24 weeks gestation of Expected: 01/08/2024 (Approximate), Expires: 01/07/2025 SYPHILIS ANTIBODY SCREEN WITH REFLEX TO RPR Lab Routine 24 weeks gestation of Expected: 01/08/2024 (Approximate), Expires: 01/07/2025 50-G GESTATIONAL GLUCOSE, 1 HOUR Lab Routine 24 weeks gestation of Expected: 03/08/2024 (Approximate), Expires: 01/07/2025 Health Maintenance Due Date Last Done Comments [...] Visit Diagnoses Diagnosis 24 weeks gestation of - Primary state, incidental Marijuana use during documented in this encounter Care Teams Waste Machine Tender Relationship Specialty Start Date End Date Patricia Ta [facility] [address] [facility] [address] PCP - General Family Medicine 05/12/22 documented as of this encounter
--- OUTSIDE RECORDS SUMMARY | 2024-04-21 08:48 | External Medical Summary | Summary of Care ---
Author Name Unknown Organization [facility] Address [address] [place] [address] Phone [phone] Care Team Providers Care Ocean Biologist Name Role Phone Patricia Ta DO Primary Care Provider +1- [phone] Reason for Visit * Reason Comments Outpatient Testing Encounter Details Date Type Department Care Team ([facility] st Contact Info) Description 01/26/2024 8:10 AM EDT Laboratory Laboratory [facility], [place] [address] [facility] [place] [phone] [place], Lab [facility] [address] [facility] [place] [id number] 24 weeks gestation of Allergies No known [...] money to get more. Never true 11/27/2023 [place] Depression Scale Answer Date Recorded [place] Depression Scale Total 0 09/18/2023 The thought [...] encounter Miscellaneous Notes * Addendum Note - Tasneem Rubin TECH - 01/29/2024 9:04 AM EDTAddended by: TASNEEM RUBIN on: 01/29/2024 09:04 AM Modules accepted: Orders * Result Encounter Note - Fallon Alexander LPN - 01/27/2024 1:14 PM EDT My G sent * Addendum Note - Jasmina Martinez PA-C [...] 02/05/2024 2:45 PM EDT Office Visit Gynecology/Obstetrics [address] [place] [address] Susana Roa CRNP [address] [place] [address] 03/28/2024 12:00 PM EST Telemedicine Psychiatry [place] [address] [place] [address] Clifford Calabrese MD [address] [place] [address] 06/06/2024 5:40 PM EST Office Visit Family Practice [address], [place] [address] [place] [address] Patricia Ta DO [address] [place] [address] Pending Results Name Type Priority Associated Diagnoses Date /Time CULTURE, URINE, QUANTITATIVE Lab Routine 24 weeks gestation of 01/29/2024 8:58 AM EDT Scheduled Orders Name Type Priority Associated Diagnoses Orde r Schedule EXTRA TUBES Lab Routine Ordered: 01/11 EXTRA URINE Lab Routine Ordered: 01/11 Health Maintenance Due Date Last Done Comments [...] SYPHILIS ANTIBODY SCREEN (01/26/2024 9:04 AM EDT) Syphilis Screen Interpretation Nonreactive Nonreactive 01/27/2024 9:55 AM EDT LAB[facility] Comment:No serologic evidenc e of syphilis. No additional testing clinicially indicated at this time. Consider repeat testing in 2-4 weeks if acute or primary syphilis is suspected. Blood Venous blood specimen / Unknown Venipuncture / Unknown 01/26/2024 9:04 AM EDT 01/26/2024 9:04 AM EDT Jasmina Martinez PA-C LAB BLOOD CHIRAG [facility] Organization Address City/State/ZIP Co de Phone Number [facility]ORY [facility] [address] [facility] [place] [address] * ANEMIA REFLEX CHEMISTRY HOLD (01/26/2024 9:04 AM EDT) Blood Venous blood specimen / Unknown Venipuncture / Unknown 01/26/2024 9:04 AM EDT 01/26/2024 9:04 AM EDT Jasmina Martinez PA-C LAB BLOOD SHADEE OLIVE [facility] Organization Address City/State/ZIP Co de Phone Number LABORATORY [facility] [address] [place] [address] * (ABNORMAL) DIFFERENTIAL, AUTOMATED (01/26/2024 9:04 AM EDT) WBC 11.28(H) 4.00 [...] Jasmina Martinez PA-C LAB BLOOD CHIRAG SCHAEFER LAB[facility]ATORY [facility] [address] [place] [address] * (ABNORMAL) ANEMIA CBC (01/26/2024 [...] AM EDT Jasmina Martinez PA-C LAB BLOOD SHADEDaryn SCHAEFER [facility] [address] [place] [address] * (ABNORMAL) 50-G GESTATIONAL GLUCOSE, 1 HOUR (01/26/2024 9:04 AM EDT) 50-g Gestational Glucose, 1 Hour 152(H) 70 - 129 mg/dL 01/26/2024 11:16 PM EDT LAB[facility]ATORY [facility] Blood Venous blood specimen / Unknown Venipuncture / Unknown 01/26/2024 9:04 AM EDT 01/26/2024 9:04 AM EDT Jasmina Martinez PA-C LAB BLOOD CHIRAG SCHAEFER [facility] [address] [place] [address] documented in this encounter Visit Diagnoses Diagnosis 24 weeks gestation of state, incidental documented in this encounter Care Teams Ocean Biologist Relationship Specialty Start Date End Date Patricia Ta DO [address] [facility] [place] [address] PCP - General Family Medicine 05/12/22 documented as of this encounter
--- OUTSIDE RECORDS SUMMARY | 2024-04-21 08:48 | External Medical Summary ---
Author Name Unknown Address Unknown Organization K01:LABORATORY [facility] - [address] [place] [address] Laboratory Report Ordering Provider Test Date Status MAX FREEDMAN 01/29/2024 09:07:22 Final Observation Date Value Abnormality Reference (Units ) Status Glucose [Mass/volume] in Serum or Plasma --1 hour post dose glucose 01/29/2024 09:07:22 150 70-179 (mg/dL) Final Performing Location LABORATORY [facility] - [address] [place] [address]
--- OUTSIDE RECORDS SUMMARY | 2024-04-21 08:48 | External Medical Summary | Summary of Care ---
Author Name Unknown Organization [facility] Address [address] [place] [address] Phone [phone] Care Team Providers Care Guzzler Builder Name Role Phone Patricia Ta DO Primary Care Provider +1- [phone] Reason for Visit * Reason Comments Return Visit 24w1d Encounter Details Date Type Department Care Team (Late st Contact Info) Description 01/08/2024 1:00 PM EDT Office Visit Gynecology/Obstetric [place] anderson [address] [facility] [place] [address] Jasmina Martinez PA-C [address] [place] [address] 24 weeks gestation of *; Marijuana use during ; Abnormal glucose tolerance in mother complicating Allergies [...] money to get more. Never true 11/27/2023 [place] Depression Scale Answer Date Recorded [place] Depression Scale Total 0 09/18/2023 The thought [...] this encounter Patient Instructions * Patient Instructions* Jasmina Martinez PA-C - 01/08/2024 1:03 PM EDT General Considerations Surrounding Immunization During The [employer] recommends routine [...] importantto remember that live attenuated vaccines (eg, saodmnw-yjefk-wnccoye [MMR], varicella, and live attenuated influenza vaccine) do pose a theoretical risk (although never documented or proved) to the fetus and generally should be avoided during . The [place] (ACOG) makes the following recommendations: Obstetric care providers should administer the tetanus toxoid, reduced diphtheria toxoid, and acellular pertussis (Tdap) vaccine to all patients during each , as early in the 28-76-nxboa-of-gestation window as possible. women should be counseled that the administration of the Tdap vaccine during each is safe and important to make sure that each receives the highest possible protection against pertussis at . Partners, family members, and caregivers should be offered the Tdap vaccine [...] documented in this encounter Progress Notes * Jasmina Martinez PA-C - 01/08/2024 1:01 PM EDT [...] information given - RTO in 4 weeks Jasmina Martinez PA-C documented in this encounter Nursing Notes * Trina King CMA - 01/08/2024 12:50 PM EDT Chief Complaint Patient presents with Return Visit 24w1d Pt agreeable to labs being ordered. Received flu vaccine last week documented in this encounter Miscellaneous Notes * Addendum Note - Jasmina Martinez PA-C - 01/27/2024 8:06 AM EDTAddended by: JASMINA MARTINEZ on: 01/27/2024 08:06 AM Modules accepted: Orders documented in this encounter Plan of Treatment Upcoming Encounters Date Type Department Care Team (Late st Contact Info) Description 01/28/2024 8:00 AM EDT Laboratory Laboratory [place] [address] [place] [place] [phone] [place], Lab [facility] [address] [place] [address] 02/05/2024 2:45 PM EDT Office Visit Gynecology/Obstetrics [facility] [address] [facility] [place] [address] Susana Roa CRNP [address] [place] [address] 03/28/2024 12:00 PM EST Telemedicine Psychiatry [place] [address] [place] [phone] Clifford Calabrese MD [address] [place] [phone] 06/06/2024 5:40 PM EST Office Visit Family Practice [place] Jay[address]e [address] [place] [address] Patricia Ta DO [address] [place] [address] Pending Results Name Type Priority Associated Diagnoses Date /Time SYPHILIS ANTIBODY SCREEN WITH REFLEX TO RPR Lab Routine 24 weeks gestation of 01/26/2024 9:04 AM EDT Scheduled Orders Name Type Priority Associated Diagnoses Orde r Schedule SYPHILIS ANTIBODY SCREEN WITH REFLEX TO RPR Lab Routine 24 weeks gestation of Expected: 01/08/2024 (Approximate), Expires: 01/07/2025 GESTATIONAL GLUCOSE TOLERANCE, 3 HOUR Lab Routine Abnormal glucose tolerance in mother complicating Expected: 01/27/2024, Expires: 01/26/2025 Health Maintenance Due Date Last Done Comments [...] Not on filedocumented as of this encounter Results * (ABNORMAL) 50-G GESTATIONAL GLUCOSE, 1 HOUR (01/26/2024 9:04 AM EDT) 50-g Gestational Glucose, 1 Hour 152(H) 70 - 129 mg/dL 01/26/2024 11:16 PM EDT [facility] Blood Venous blood specimen / Unknown Venipuncture / Unknown 01/26/2024 9:04 AM EDT 01/26/2024 9:04 AM EDT Jasmina Martinez PA-C LAB BLOOD CHIRAG SCHAEFER [facility] [address] [place] [address] documented in this encounter Visit Diagnoses Diagnosis 24 weeks gestation of - Primary state, incidental Marijuana use during Abnormal glucose tolerance in mother complicating Abnormal maternal glucose tolerance, complicating , childbirth, or the puerperium, unspecified as to episode of care documented in this encounter Care Teams Guzzler Builder Relationship Specialty Start Date End Date Patricia Ta DO [address] [facility] [place] [address] PCP - General Family Medicine 05/12/22 documented as of this encounter
--- OUTSIDE RECORDS SUMMARY | 2024-04-21 08:48 | External Medical Summary | Summary of Care ---
Author Name Unknown Organization [facility] Address [address] [place] [address] Phone [phone] Care Team Providers Care Custom Frame Assembler Name Role Phone Patricia Ta DO Primary Care Provider +1- [phone] Reason for Referral * Precert (Diagnostic Medical) (Within 10 days (routine)) - Authorized Specialty Diagnoses / Procedures Referred By Contac t Referred To Contact Cardiac Studies Diagnoses Lightheadedness Procedures ECHO, COMPLETE (2D), TRANS-THORACIC Aliza Melara PA-C [address] [place] [address] Referral ID Status Reason Start Date Expiration Date V isits Requested Visits Authorized [id number] Authorized Precert 12/16/2023 02/14/2024 [id number] Reason for Visit * Precert (Diagnostic Medical) (Within 10 days (routine)) - Authorized Specialty Diagnoses / Procedures Referred By Contac t Referred To Contact Cardiac Studies Diagnoses Lightheadedness Procedures ECHO, COMPLETE (2D), TRANS-THORACIC Aliza Melara PA-C [address] [place] [address] Referral ID Status Reason Start Date Expiration Date V isits Requested Visits Authorized [id number] Authorized Precert 12/16/2023 02/14/2024 [id number] Encounter Details Date Type Department Care Team (Latest Contact Info) Description 12/17/2023 12:27 PM EDT - 12/17/2023 11:59 PM EDT Hospital Encounter Cardiac Studies, [address] [place] [address] Discharge Disposition: Home - Self Care Allergies No known active allergiesdocumented as of this encounter (statuses as of 12/18/2023) Medications Medication Sig Dispensed Refills Start Date [...] as of this encounter (statuses as of 12/18/2023) Active Problems Problem Noted Date Diagnosed Date Marijuana use during 09/22/2023 Overview: Screen positive at [facility]. 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 Never true 11/27/2023 [place] Depression Scale Answer Date Recorded [place] Depression Scale Total 0 09/18/2023 The thought [...] as of this encounter Miscellaneous Notes * Result Encounter Note - Aliza Melara PA-C - 12/17/2023 12:45 PM EDT Great news! Echocardiogram with normal pumping function 58% No significant valvular disease Normal study! documented in this encounter Plan of Treatment Upcoming Encounters Date Type Department Care Team (Late st Contact Info) Description 01/08/2024 1:00 PM EDT Office Visit Gynecology/Obstetrics, [place] [address] [place] [address] Deb Martinez PA-C [address] [place] [address] 01/21/2024 9:30 AM EDT Telemedicine Psychiatry [place] [address] [place] [phone] Clifford Calabrese MD [address] [place] [phone] 06/06/2024 5:40 PM EST Office Visit Family Practice [address] [place] [address] Patricia Ta DO [address] [place] [address] Health Maintenance Due Date Last Done Comments HPV (Gardasil) Vaccine (1 - 3-dose series) 2013 COVID-19 Vaccine ( season) 2023 Influenza Vaccine (FLU shot) (#1) 2023 01/14/2017, 01/14/2017, 03/15/2015, Additional history exists Depression Screening 04/17/2024 04/17/2023 Pap Smear 06/23/2025 06/23/2022 DTap/Tdap Vaccines (9 - Td or Tdap) 08/05/2033 08/06/2023, 02/05/2010, 02/05/2010, Additional history exists MENINGOCOCCAL (MENACTRA/MENVEO) Aged Out 02/05/2010, 02/05/2010 No longer eligibl e based on patient's age to complete this topic Gonorrhea / Chlamydia Screen Discontinued 09/18/2023, 08/18/2023, 06/23/2022, Additional history exists Pneumococcal Vaccine: Pediatrics (0 to 5 Years) and At-Risk Patients (6 to 64 Years) Aged Out No longer eligible based on patient's age to complete this topic documented as of this encounter Medical Devices Not on filedocumented as of this encounter Procedures Procedure Name Priority Date/Time Associated Diagnosis Comments ECHO, COMPLETE (2D), TRANS-THORACIC Routine 12/17/2023 1:35 PM EDT Lightheadedness documented in this encounter Results * ECHO, COMPLETE (2D), TRANS-THORACIC (12/17/2023 1:35 PM EDT) LEFT VENTRICULAR EJECTION FRACTION 55 % [facility] CARDIOLOGY 12/17/2023 12:5 6 PM EDT Aliza Melara PA-C ECHOCARD IOLOGY [facility] CARDIOLOGY documented in this encounter Visit Diagnoses Diagnosis Lightheadedness Dizziness and giddiness documented in this encounter Care Teams Custom Frame Assembler Relationship Specialty Start Date End Date Patricia Ta DO [address] [facility] [place] [address] PCP - General Family Medicine 05/12/22 documented as of this encounter
--- OUTSIDE RECORDS SUMMARY | 2024-04-21 08:48 | External Medical Summary ---
Author Name Unknown Address Unknown Organization K01:LABORATORY [facility] - [address] [place] [address] Laboratory Report Ordering Provider Test Date Status MIMI MONSON 01/29/2024 08:03:24 Final Observation Date Value Abnormality Reference (Units ) Status MYCODE SPECIMEN-SST 01/29/2024 08:03:24 Freezing of extracted DNA, whole blood and/or serum. Final Performing Location LABORATORY C - [address] [place] [address]
--- OUTSIDE RECORDS SUMMARY | 2024-04-21 08:48 | External Medical Summary | Summary of Care ---
Author Name Unknown Organization [facility] Address [address] [place] [address] Phone [phone] Care Team Providers Care Petroleum Transport Driver Name Role Phone Patricia Ta DO Primary Care Provider +1- [phone] Encounter Details Date Type Department Care Team (Latest Contact Info) Description 12/16/2023 11:57 AM EDT - 12/16/2023 11:59 PM EDT Hospital Encounter Cardiac Studies, [facility] [address] [place] [address] Glh, Lead Systems Analyst [address] [place] [address] Discharge Disposition: Home - Self Care Allergies No known active allergiesdocumented as of this encounter (statuses as of 12/17/2023) Medications Medication Sig Dispensed Refills Start Date [...] as of this encounter (statuses as of 12/17/2023) Active Problems Problem Noted Date Diagnosed Date Marijuana use during 09/22/2023 Overview: Screen positive at [facility]. 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 Never true 11/27/2023 [place] Depression Scale Answer Date Recorded [place] Depression Scale Total 0 09/18/2023 The thought [...] as of this encounter Miscellaneous Notes * Ancillary Progress Note - Dariusz Wilson TECH - 12/16/2023 12:45 PM EDT 14 day Zio Monitor Placed [id number] Kristopher Baxter [facility] Cardiopulmonary Office documented in this encounter Plan of Treatment Upcoming Encounters Date Type Department Care Team (Late st Contact Info) Description 01/08/2024 1:00 PM EDT Office Visit Gynecology/Obstetrics, [place] [address] [place] [address] Deb Martinez PA-C [address] [place] [place] [address] 01/21/2024 9:30 AM EDT Telemedicine Psychiatry James Carlson [address] [place] [phone] Clifford Calabrese MD [address] [place] [address] 06/06/2024 5:40 PM EST Office Visit [facility] [place] Jaycee Corley [address] [place] [address] Patricia Ta DO [address] [place] [address] Health Maintenance Due Date Last Done Comments [...] as of this encounter Visit Diagnoses Diagnosis Lightheadedness Dizziness and giddiness documented in this encounter Care Teams Petroleum Transport Driver Relationship Specialty Start Date End Date Patricia Ta DO [address] [place] [address] PCP - General Family Medicine 05/12/22 documented as of this encounter
--- OUTSIDE RECORDS SUMMARY | 2024-04-21 08:48 | External Medical Summary ---
Author Name Unknown Address Unknown Organization [id number]:[facility]ORY [facility] [place] [address] [address] Laboratory Report Ordering Provider Test Date Status MAX FREEDMAN 01/26/2024 09:04:24 Final Observation Date Value Abnormality Reference (Units ) Status WBC, Total 01/26/2024 09:04:24 11.28 Above high normal 4 .00-10.80 (K/uL) Final RBC 01/26/2024 09:04:24 4.00 3.85-5.15 (M/uL) Final Hemoglobin 01/26/2024 09:04:24 12.4 12.0-15.3 (g/dL) Final Anemia reflex testing trigge rs on a HGB < 12.0 for Females and HGB < 13.0 for Males in accordance with the WHO Anemia Guidelines
Anemia reflex testing triggers on a HGB < 12.0 for Females and HGB < 13.0 for Males in accordance with the WHO Anemia Guidelines HCT 01/26/2024 09:04:24 37.4 36.0-45.2 (%) Final MCV 01/26/2024 09:04:24 93.5 81.5-97.5 (fL) Final MCH 01/26/2024 09:04:24 31.0 27.0-34.0 (pg) Final MCHC 01/26/2024 09:04:24 33.2 32.0-36.0 (g/dL) Final RDW 01/26/2024 09:04:24 13.2 11.5-15.5 (%) Final Platelets 01/26/2024 09:04:24 337 140-400 (K /uL) Final MPV 01/26/2024 09:04:24 8.2 6.6-11.1 ( fL) Final Nucleated erythrocytes/100 leukocytes [Ratio] in Blood by Automated count 01/26/2024 09:04:24 0 <=0 (/100 WBCs) Fi [facility] Performing Location LABORATORY [facility] - [address] [facility] [address]
--- OUTSIDE RECORDS SUMMARY | 2024-04-21 08:48 | External Medical Summary ---
Author Name Unknown Address Unknown Organization [id number]:[facility] [place] [address] [place] [address] Laboratory Report Ordering Provider Test Date Status MIMI MONSON 01/29/2024 08:03:24 Final Observation Date Value Abnormality Reference (Units ) Status MYCODE SPECIMEN-SST 01/29/2024 08:03:24 Freezing of extracted DNA, whole blood and/or serum. Final Performing Location LABORATORY [facility] - [address] [place] [address]
--- OUTSIDE RECORDS SUMMARY | 2024-04-21 08:48 | External Medical Summary ---
Author Name Unknown Address Unknown Organization [id number]:LABORATORY [facility] [place] - [address] [address] Laboratory Report Ordering Provider Test Date Status MAX FREEDMAN 01/29/2024 11:08:19 Final Observation Date Value Abnormality Reference (Units ) Status Glucose [Mass/volume] in Serum or Plasma --3 hours post dose glucose 01/29/2024 11:08:19 86 70-139 (mg/dL) Final Performing Location LABORATORY [facility] [place] - [address] [place] [address]
--- OUTSIDE RECORDS SUMMARY | 2024-04-21 08:48 | External Medical Summary ---
Author Name Unknown Address Unknown Organization [id number]:LABORATORY [facility] [place] - [address] [facility] [place] [address] Laboratory Report Ordering Provider Test Date Status MAX FREEDMAN 01/26/2024 09:04:24 Final Observation Date Value Abnormality Reference (Units ) Status BUN 01/26/2024 09:04:24 6 6-20 (mg/dL) Final Creatinine 01/26/2024 09:04:24 0.5 0.5-1.0 (mg/dL) Final Glomerular filtration rate/1.73 sq M.predicted [Volume Rate/Area] in Serum, Plasma or Blood by Creatinine-based formula (CKD-EPI) 01/26/2024 09:04:24 >90 >=60 (mL/min) Final eGFR is calculated based on the CKD-EPI 2020 equation. Sodium 01/26/2024 09:04:24 136 135-146 (m mol/L) Final Potassium 01/26/2024 09:04:24 3.6 3.5-5.1 (m mol/L) Final Cl 01/26/2024 09:04:24 104 98-107 (mm ol/L) Final CO2 01/26/2024 09:04:24 18 Below low normal 22- 32 (mmol/L) Final Anion gap 01/26/2024 09:04:24 14 7-15 (mmol /L) Final Glucose 01/26/2024 09:04:24 149 Above high normal 70 -120 (mg/dL) Final Albumin 01/26/2024 09:04:24 3.7 Below low normal 3.8 -5.0 (g/dL) Final AST (Aspartate aminotransferase) 01/26/2024 09:04:24 10 10-35 (U/L) Fin al Alk Phos 01/26/2024 09:04:24 89 35-130 (U/ L) Final Bilirubin, Total 01/26/2024 09:04:24 <0.2 <=1 .2 (mg/dL) Final Calcium 01/26/2024 09:04:24 8.5 8.4-10.2 ( mg/dL) Final Protein 01/26/2024 09:04:24 5.8 Below low normal 6.0 -8.3 (g/dL) Final ALT (Alanine aminotransferase) 01/26/2024 09:04:24 12 10-35 (U/L) Adama cannon Performing Location LABORATORY [facility] [place] - [facility] [address] [facility] [address]
--- OUTSIDE RECORDS SUMMARY | 2024-04-21 08:49 | External Medical Summary | Summary of Care ---
Author Name Unknown Organization [facility] Address [address] [place] [address] Phone [phone] Care Team Providers Care Facility Assistant Name Role Phone Patricia Ta DO Primary Care Provider +1- [phone] Reason for Visit * Reason Onset Date Comments Med Request 12/01/2023 11/30/Rash Encounter Details Date Type Department Care Team ([facility] st Contact Info) Description 12/01/2023 Telephone Family Practice [facility] Jaycee Corley [address] [place] [address] Patricia Ta DO [address] [place] [address] Med Request (LM 11/30/Rash) Allergies No known active allergiesdocumented as of this encounter (statuses as of 12/01/2023) Medications Medication Sig Dispensed Refills Start Date End Date Status Vitamin B-6 25 MG Oral Tablet Take by mouth. Active doxylamine 12.5 MG OR TABS Take 0.5 Tablets by mouth at bedtime as needed. Active Vitamin and Mineral 28-0.8 MG Oral Tablet Take by mouth. Active Citalopram Hydrobromide 10 MG Oral Tablet (CeleXA) Take 1 Tablet by mouth in the morning. 30 Tablet 2 11/19/2023 Active documented as of this encounter (statuses as of 12/01/2023) Active Problems Problem Noted Date Diagnosed Date Marijuana use during 09/22/2023 Overview: Screen positive at [facility]. 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/27/2021 05/12/2022 Depression 05/16/2020 05/12/2022 Supervision of normal first 05/16/2020 05/16/2020 Tobacco use disorder 05/16/2020 023 Migraine 08/06/2011 05/12/2022 Allergic rhinitis 05/12/2022 Celiac disease 05/12/2022 documented as of this encounter (statuses as of 12/01/2023) Immunizations Name Administration Dates Next Due DTaP Dipth/Tet/Acell Pertussis (Infanrix), Peds 11/13/2005,05/14/2000,07/18/1999,05/16,03/14/1999 H1N1 2009 Influenza, IM 02/13/2009 H1N1 2009 Influenza, Intranasal 02/13/2009 HIB PRP-OMP, 3 dose (Pedvax) 12/19/1999,05/16/19 00,03/21/1999 Hepatitis B, 0-19 yrs 05/14/2000,05/16/1999,1205/1998 IPV - Polio Virus Vaccine (Inact) 2005,05/14/2000,05/16/1999,03/14 MMR - Measles/Mumps/Rubella Vaccine 05/18/2003,0 12/19/1999 Meningococcal Conjugate Vacc ine (Menactra/Menveo) 02/05/2010,02/05/2010 PPD 06/01/2023, 7,11/26/2016,11/18,11/18/2016,05/28/2015,05/28/2015 Seasonal Influenza Intranasal 12/24/2011 ,02/12/2011,02/05/2010,02/05,01/28/2008,04/08/2006 Seasonal Influenza Virus Vac cine, Unspecified Formulation [...] money to get more. Never true 11/27/2023 [place] Depression Scale Answer Date Recorded [place] Depression Scale Total 0 09/18/2023 The thought [...] encounter Miscellaneous Notes * Telephone Encounter - Empeartriz Becerra OSA - 12/01/2023 12:12 PM EDT Patient has been notified of the message. Patient has been scheduled. * Telephone Encounter - Alyssa Denney OSA - 12/01/2023 12:05 PM EDT LMOM to schedule acute with any provider * Telephone Encounter - Charisma Ward LPN - 12/01/2023 11:55 AM EDT Please assist with scheduling office visit for evaluation. * Telephone Encounter - Serina Jordan OSA - 12/01/2023 11:46 AM EDT Pt requesting medication for red, burning, itchy rash in groin area for about a month. documented in this encounter Plan of Treatment Upcoming Encounters Date Type Department Care Team (Late st Contact Info) Description 12/02/2023 3:20 PM EDT Office Visit [place] [address] [place] [address] Noreen Man PAOlamide [address] [place] [address] [place] [address] 12/11/2023 2:45 PM EDT Imaging Radiology [facility] [address] [facility] [place] [address] 12/11/2023 4:30 PM EDT Office Visit Gynecology/Obstetrics [place] [address] [facility] [place] [address] Zena Nicole PA-C [address] [place] [address] 01/21/2024 9:30 AM EDT Telemedicine Psychiatry James Carlson [address] [place] [phone] Clifford Calabrese MD [address] [place] [phone] 06/06/2024 5:40 PM EST Office Visit [facility] Jaycee Corley [address] [place] [address] Patricia Ta DO [address] [place] [address] Health Maintenance Due Date Last Done Comments HPV (Gardasil) Vaccine (1 - 3-dose series) 2013 COVID-19 Vaccine (2022-24 season) 2022 Influenza Vaccine (FLU shot) (#1) 2023 01/14/2017, 01/14/2017, 03/15/2015, Additional history exists Depression Screening 04/17/2024 04/17/2023 Gonorrhea / Chlamydia Screen 09/17/202410/2023, 08/18/2023, 06/23/2022, Additional history exists Pap Smear 06/23/2025 06/23/2022 DTaP,Tdap,and Td Vaccines (9 - Td or Tdap) 08/05/2033 08/06/2023, 02/05/2010, 02/05/2010, Additional history exists MENINGOCOCCAL (MENACTRA/MENVEO) Aged Out 02/05/2010, 02/05/2010 No longer eligibl e based on patient's age to complete this topic Pneumococcal Vaccine: Pediatrics (0 to 5 Years) and At-Risk Patients (6 to 64 Years) Aged Out No longer eligible based on patient's age to complete this topic documented as of this encounter Medical Devices Not on filedocumented as of this encounter Care Teams Facility Assistant Relationship Specialty Start Date End Date Patricia Ta DO [address] [facility] [place] [address] PCP - General Family Medicine 05/12/22 documented as of this encounter
--- OUTSIDE RECORDS SUMMARY | 2024-04-21 08:49 | External Medical Summary | Summary of Care ---
Author Name Unknown Organization [facility] Address [address] [place] [address] Phone [phone] Care Team Providers Care Revenue Cycle Manager Name Role Phone Patricia Ta DO Primary Care Provider [phone]- [phone] Encounter Details Date Type Department Care Team (Late st Contact Info) Description 11/19/2023 2:30 PM EDT Telemedicine Psychiatry [facility] [address] [place] [address] Clifford Calabrese MD [address] [place] [address] NANCY (generalized anxiety disorder)*; Opioid dependence in remission (HCC); Methamphetamine use disorder, mild, in sustained remission (HCC) Allergies No known active allergiesdocumented as of this encounter (statuses as of 11/19/2023) Medications Medication Sig Dispensed Refills Start Date [...] the morning. 30 Tablet 2 11/19/2023 Active Citalopram Hydrobromide 10 MG Oral Tablet (CeleXA) Take 1 Tablet by mouth in the morning. 30 Tablet 2 09/17/2023 11/19/2023 Discontinued (Refill) documented as of this encounter (statuses as of 11/19/2023) Active Problems Problem Noted Date Diagnosed Date Marijuana use during 09/22/2023 Overview: Screen positive at [facility]. NANCY (generalized anxiety disorder) 11/17/2016 Estimated Date of Delivery Comme nts Yes 04/28/2024 Based on last me nstrual period of 07/23/2023 (Exact Date) documented as of this encounter (statuses as of 11/19/2023) Resolved Problems Problem Noted Date Diagnosed Date Resolved Date Heroin abuse 02/27/2021 05/12/2022 Depression 05/16/2020 05/12/2022 Supervision of normal first 05/16/2020 05/16/2020 Tobacco use disorder 05/16/2020 023 Migraine 08/06/2011 05/12/2022 Allergic rhinitis 05/12/2022 Celiac disease 05/12/2022 documented as of this encounter (statuses as of 11/19/2023) Immunizations Name Administration Dates Next Due DTaP [...] the money to buy more. Never true 11/19/19 24 Within the past 12 months, t he food you bought just didn't last and you didn't have money to get more. Never true 11/19/2023 Hayward Depression Scale Answer Date Recorded Hayward Depression Scale Total 0 09/18/2023 The thought of harming myself has occurred to me . Never 09/18/2023 Childcare Answer Date Recorded Do you feel overwhelmed with taking care of a child, family member or friend? No 11/19/2023 Does your family need help f inding childcare? (Household - for ages 0-17 years) Not on file 11/19/2023 Clothing Answer Date Recorded Have you been unable to get clothing when it was really needed? No 11/19/2023 Is your family able to get c lothes or diapers when needed? (Household - for ages 0-17 years) Not on file 11/19/2023 Personal Safety Answer Date Recorded Do you feel unsafe or have concerns for your saf ety? No 11/19/2023 Do you have concerns for you r family's safety? (Household - for ages 0-17 years) Not on file 11/19/2023 Utilities Answer Date Recorded Do you have trouble paying y our heating, water, or electric bill? No 11/19/2023 Is your family able to pay t he heat, water, or electric bill? (Household - for ages 0-17 years) Not on file 11/19/2023 Does your family have access to good internet? (Household - for ages 0-17 years) Not on file 11/19/2023 Employment Status Answer Date Recorded Are you unemployed or without regular income? Ye s 11/19/2023 Does the household have a re gular source of income? (Household - for ages 0-17 years) Not on file 11/19/2023 Social Connections Answer Date Recorded How often do you feel lonely or isolated from th ose around you? Rarely 11/19/2023 Financial Resource Strain Answer Date R ecorded Do you have any trouble payi ng for your medications, or do you think you might in the future? No 11/19/2023 Does your family have troubl e paying for medicine? (Household - for ages 0-17 years) Not on file 11/19/2023 Transportation Needs Answer Date Record ed READ ONLY Do you have troubl e getting a ride to medical visits or work? Never True 11/19/2023 Does your family have a hard time getting a ride to doctors visits? (Household - for ages 0-17 years) Not on file 11/19/2023 Has lack of transportation k ept you from medical appointments, meetings, work, or from getting things needed for daily living? Check all that apply. No 11/19/2023 Do you (or your family) have trouble finding or paying for a ride (transportation)? (Household - for ages 0-17 years) Not on file 11/19/2023 Housing Stability Answer Date Recorded Do you currently live in a s helter or have no steady place to sleep at night? No 11/19/2023 READ ONLY Do you think you a re at risk of becoming homeless? No 11/19/2023 Does your family worry about paying for your home or becoming homeless? (Household - for ages 0-17 years) Not on file 0 11/19/2023 Are you homeless or worried that you might be in the future? No 11/19/2023 Are you (or your family) radha eless or worried that you might be in the future? (Household - for ages 0-17 years) Not on file Food Insecurity Answer Date Recorded Do you need food for this week? No 11/19/2023 Are you able to get enough f ood for your family? (Household - for ages 0-17 years) Not on file 11/19/2023 Does your family need food t his week? (Household - for ages 0-17 years) Not on file 11/19/2023 Do you always have enough fo od for your family? (Household - for ages 0-17 years) Not on file 11/19/2023 Education Answer Date Recorded What is the [...] Progress Notes * Clifford Calabrese MD - 11/19/2023 2:46 PM EDT Outpatient Telepsychiatry Follow up Note Division of Psychiatry [facility] Patient location: HOME. I was not in a hospital or clinic location. After connecting through televideo, patient was verified with two unique identifiers. Patient (or authorized legal medical billing representative) was then informed that this was a Telemedicine visit and being conducted confidentially over secure lines. My office door was closed. No one else was in the room with me. Methods to assure confidentiality were taken. I informed the patient that I have reviewed their record in [facility] and presented the opportunity for them to ask any questions regarding the visit today. The patient agreed to participate. Patient acknowledged consent and understanding of privacy and security of the Telemedicine visit. The patient agreed to participate. Rights and responsibilities of treatment discussed. Patient informed that the session will be held in keeping with [facility] policies and procedures as well as [facility] regulations. Documentation of sessions will be recorded in the [facility] medical record which,in an integrated health care system, is viewable by other [facility] care providers with a legitimate need to [...] are: Child abuse/neglect-this provider is a mandated dry wall nailer for child abuse/neglect in the [facility]. If I become aware of child abuse or neglect I am legally required to file a report. Imminent Risk-if a person coming before me is at risk for imminently harming themselves or someone else, it is my legal responsibility to take action to protect life/ensure safety. Court Orders-while rare, I can be compelled to testify in court if required by a presiding judge or legal order. This most often [...] hospital or clinic location. After connecting through [employer], patient was verified with two unique identifiers. Patient (or authorized legal medical billing representative) was then informed that this was [...] psychiatrist in 2019. She did go to [facility] [place] twice in June 2020 and then in October 2020 for heroin and meth. She has reportedly been clean from substances since then. She never got Suboxone. She briefly saw a psychiatrist within [facility] about 4 years ago.She then dropped out [...] reports symptoms of Major Depressive Episode, in 2018, following the break up of a relationship, [...] therapist intermittently in the past. INTERVAL HISTORY: Jesi Coleman reports she had a test on August 17, got a test then which turned positive. Last [facility] July 22 (was seen by me on July 24). Currently 17 weeks - reportedly growth is good. Due date is April 26 2024. 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 Salary was better. She will be working 2nd shift, 2 pm to 10 pm. 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 Her mother and siblings are reportedly excited and plan to help. Her sister may be also able to help. Future oriented, hopeful. She does use medical marijuana. She does have things that she enjoys. She does reports situational anxiety. Jesi Collins Coleman denies any change in medical history or medications since last visit. Medication side effects: denies Suicidal thoughts: denies Feeling down: denies Irritability: no Anxiety: no Past Medical History: Diagnosis Date Allergic Allergic rhinitis spring Anxiety Constipation Depression 05/16/2020 NANCY (generalized anxiety disorder) 11/17/2016 Migraine no aura ALLERGIES Review of patient's allergies indicates: No Known Allergies CURRENT MEDICATIONS: Current Outpatient Medications Medication Sig Dispense Refill Citalopram Hydrobromide 10 MG Oral Tablet (CeleXA) Take 1 Tablet by mouth in the morning. 30 Tablet2 Vitamin B-6 25 MG Oral Tablet Take by mouth. doxylamine 12.5 MG OR TABS Take 0.5 Tablets by mouth at bedtime as needed. Vitamin and Mineral 28-0.8 MG Oral Tablet Take by mouth. No current facility-administered medications for this visit. No medication comments found. RECENT LABS/IMAGING: Recent Results (from the past 2016 hour(s)) BETA-HCG, QUANTITATIVE Collection Time: 08/28/23 2:21 PM Result Value Ref Range Beta-HCG, Quantitative 9,516.0 (H) <=1.0 mIU/mL CHLAMYDIA TRACHOMATIS AND NEISSERIA GONORRHOEAE, AMPLIFIED PROBE Collection Time: 09/18/23 2:52 PM Result Value Ref Range Chlamydia Trachomatis Result Negative Negative Neisseria Gonorrhoeae Result Negative Negative TOXICOLOGY, URINE SCREEN W/ CONFIRMATION Collection Time: 09/18/23 2:52 PM Result Value Ref Range Amphetamines Screen, U Negative Negative Benzodiazepines Screen, U Negative Negative Cannabinoids Screen, U Positive (A) Negative Cocaine Metabolite Screen, U Negative Negative Fentanyl Screen, U Negative Negative Hydrocodone Screen, U Negative Negative Methadone Metabolite Screen, U Negative Negative Morphine/Codeine Screen, U Negative Negative Oxycodone Screen, U Negative Negative CULTURE, URINE, QUANTITATIVE Collection Time: 09/18/23 2:52 PM Specimen: Urine, Clean Catch Result Value Ref Range Culture Growth No significant growth THC METABOLITE, URINE CONFIRMATION Collection Time: 09/18/23 2:52 PM Result Value Ref Range Methodology LC-MS/MS THC-COOH Confirmation, U >400 (H) Negative ng/mL BUPRENORPHINE, URINE SCREEN W/ CONFIRMATION Collection Time: 09/18/23 2:52 PM Result Value Ref Range Buprenorphine Screen, U Negative Negative URINALYSIS OBSTETRICS, POINT OF CARE Collection Time: 09/18/23 2:56 PM Result Value Ref Range Color, Urine Dark Yellow (A) Light Yellow, Yellow Clarity, Urine Slightly Cloudy (A) Clear Glucose, Urine Negative Negative mg/dL Bilirubin, Urine Negative Negative Ketone, Urine Negative Negative mg/dL Specific [place], Urine >=1.030 1.003 - 1.030 Blood, Urine Negative Negative pH, Urine 6.0 5.0, 5.5, 6.0, 6.5, 7.0, 7.5 units Protein, Urine Trace (A) Negative mg/dL Urobilinogen, Urine 0.2 0.2, 1.0 mg/dL Nitrite, Urine Negative Negative Esterase, Urine Trace (A) Negative TYPE AND SCREEN Collection Time: 10/02/23 11:50 AM Result Value Ref Range ABO O Rh Positive Red Blood Cell Antibody Screen Negative Specimen Expiration Date 10/05/2023 23:59 RUBELLA IGG ANTIBODY Collection Time: 10/02/23 11:50 AM Result Value Ref Range Rubella IgG Antibody Positive (A) Negative HEPATITIS B SURFACE ANTIGEN Collection Time: 10/02/23 11:50 AM Result Value Ref Range Hepatitis B Surface Antigen Negative Negative HIV ANTIGEN & ANTIBODY SCREEN W/ CONFIRMATION Collection Time: 10/02/23 11:50 AM Result Value Ref Range HIV Antigen & Antibody Negative Negative QNATAL ADVANCED (QUEST) Collection Time: 10/02/23 11:50 AM Result Value Ref Range Number of Fetuses? 1 Advanced Maternal Age? NO Abnormal Chitra? NO Abnormal Us? NOT GIVEN Personal/Fam History? NOT GIVEN Interpretation SEE BELOW Trisomy 21 (T21) Negative Trisomy 18 (T18) Negative Trisomy 13 (T13) Negative Y Chromosome Not detected Y CHR. Interpretation SEE BELOW Sex Chromosome No aneuploidy Sex Chromosome Interp SEE BELOW Microdeletion Opted Out Microdeletion Interp SEE BELOW Gestational Age (In Weeks) 10 Gestational Age (In Days) 1 Fraction 15.51% Laboratory Comments SEE BELOW Limitations SEE BELOW Specifications SEE BELOW Methodology SEE BELOW ANEMIA CBC Collection Time: 10/02/23 11:50 AM Result Value Ref Range WBC 11.10 (H) 4.00 - 10.80 K/uL RBC 4.51 3.85 - 5.15 M/uL HGB 13.8 12.0 - 15.3 g/dL HCT 42.0 36.0 - 45.2 % MCV 93.1 81.5 - 97.5 fL MCH 30.6 27.0 - 34.0 pg MCHC 32.9 32.0 - 36.0 g/dL RDW 14.3 11.5 - 15.5 % PLT 377 140 - 400 K/uL MPV 8.5 6.6 - 11.1 fL nRBCs 0 <=0 /100 WBCs DIFFERENTIAL, AUTOMATED Collection Time: 10/02/23 11:50 AM Result Value Ref Range WBC 11.10 (H) 4.00 - 10.80 K/uL Neutrophils % 70.9 40.0 - 75.0 % Lymphocytes % 22.3 18.0 - 42.0 % Monocytes % 4.6 1.0 - 11.0 % Eosinophils % 0.9 0.0 - 6.0 % Basophils % 0.5 0.0 - 2.0 % Immature Granulocytes % 0.8 0.0 - 2.0 % Absolute Neutrophils 7.87 (H) 1.80 - 7.70 K/uL Absolute Lymphocytes 2.47 1.00 - 4.80 K/ul Absolute Monocytes 0.51 0.00 - 1.10 K/uL Absolute Eosinophils 0.10 0.00 - 0.70 K/uL Absolute Basophils 0.06 0.00 - 0.20 K/uL Absolute Immature Granulocytes 0.09 0.00 - 0.20 K/uL HEPATITIS C ANTIBODY Collection Time: 10/02/23 11:50 AM Result Value Ref Range Hepatitis C Antibody Negative Negative SYPHILIS ANTIBODY SCREEN Collection Time: 10/02/23 11:50 AM Result Value Ref Range Syphilis Screen Interpretation Nonreactive Nonreactive HEPATITIS B SURFACE ANTIBODY Collection Time: 10/16/23 12:10 PM Result Value Ref Range Hepatitis B Surface Antibody, Quantitative 10.7 mIU/mL Hepatitis B Surface Antibody, Qualitative Indeterminate Hepatitis B Surface Antibody, Interpretation Suggest repeat testing in 1 to 3 months. QUANTIFERON TB GOLD PLUS Collection Time: 10/16/23 12:10 PM Result Value Ref Range Quantiferon-TB Plus, 1T NEGATIVE NEGATIVE NIL 0.05 IU/mL Mitogen-NIL 8.57 IU/mL TB1-NIL 0.02 IU/mL TB2-NIL 0.02 IU/mL MYCODE INITIAL ADULT-PINK Collection Time: 10/16/23 12:10 PM Result Value Ref Range MyCode Specimen Freezing of extracted DNA, whole blood and/or serum. MYCODE SST1 Collection Time: 10/16/23 12:10 PM Result Value Ref Range MyCode Specimen Freezing of extracted DNA, whole blood and/or serum. MYCODE SST2 Collection Time: 10/16/23 12:10 PM Result Value Ref Range MyCode Specimen Freezing of extracted DNA, whole blood and/or serum. 50-G GESTATIONAL GLUCOSE, 1 HOUR Collection Time: 10/19/23 1:01 PM Result Value Ref Range 50-g Gestational Glucose, 1 Hour 85 70 - 129 mg/dL VITALS BP Readings from Last 4 Encounters: 11/13/23 90/60 10/16/23 114/58 09/18/23 114/62 08/17/23 112/60 Pulse Readings from Last 4 Encounters: 08/17/23 105 06/01/23 74 12/23/22 60 09/22/22 84 Wt Readings from Last 3 Encounters: 11/13/23 73.4 kg (161 lb 12.8 oz) 10/16/23 72.4 kg (159 lb 9.6 oz) 09/18/23 71.2 kg (157 lb) There is no height or weight [...] of life events ASSESSMENT AND TREATMENT PLAN: Collin Suicide Severity Rating Scale Since Last Contact [...] Schedule follow up care consistent with assessment There are no diagnoses linked to this encounter. During this session, a CRISIS plan was [...] Certified Adult Psychiatrist and Sleep Medicine Physician [facility] documented in this encounter Plan of Treatment Upcoming Encounters Date Type Department Care Team (Late st Contact Info) Description 12/11/2023 2:45 PM EDT Imaging Radiology [facility] [address] [facility] [place] [address] 12/11/2023 4:30 PM EDT Office Visit Gynecology/Obstetrics [facility] [address] [place] [address] Zena Nicole PA-C [address] [place] [address] 01/21/2024 9:30 AM EDT Telemedicine Psychiatry [facility] [address] [facility] [place] [place] [address] Clifford Calabrese MD [address] [place] [address] 06/06/2024 5:40 PM EST Office Visit Family Practice [facility] [address] [place] [address] Patricia Ta DO [address] [place] [address] Health Maintenance Due Date Last Done Comments HPV (Gardasil) Vaccine (1 - 3-dose series) 2013 COVID-19 Vaccine (2022- season) 2022 Influenza Vaccine (FLU shot) (#1) [...] (HCC) documented in this encounter Care Teams Revenue Cycle Manager Relationship Specialty Start Date End Date Patricia Ta DO [address] [facility] [place] [address] PCP - General Family Medicine 05/12/22 documented as of this encounter
--- OUTSIDE RECORDS SUMMARY | 2024-04-21 08:49 | External Medical Summary | Summary of Care ---
Author Name Unknown Organization [facility] Address [address] [place] [address] Phone [phone] Care Team Providers Care Flatcar Whacker Name Role Phone Patricia Ta DO Primary Care Provider +1- [phone] Reason for Visit * Reason Onset Date Comments Order Request 09/09/2023 Dating ultrasoun d Encounter Details Date Type Department Care Team ([facility] st Contact Info) Description 09/09/2023 Telephone Radiology, [address] [place] [address] Shavonne Hensley PA-C [address] [facility] [place] [address] Order Request (Dating ultrasound ) Allergies No known active allergiesdocumented as of this encounter (statuses as of 12/09/2023) Medications Medication Sig Dispensed Refills Start Date End Date Status Promethazine HCl 12.5 MG Oral Tablet (Phenergan) Take 1 Tablet by mouth daily as needed for Nausea. 15 Tablet 09/03/2022 4 Discontinued Tretinoin 0.025 % External Cream 09/19/2022 4 Discontinued Citalopram Hydrobromide 10 MG Oral Tablet (CeleXA) Take 1 Tablet by mouth in the morning. 30 Tablet 08/27/2023 4 Discontinued(Refi ll) documented as of this encounter (statuses as of 12/09/2023) Active Problems Problem Noted Date Diagnosed Date Marijuana use during 09/22/2023 Overview: Screen positive at NOB. NANCY (generalized anxiety disorder) 11/17/2016 Estimated Date of Delivery Comme nts Yes 04/28/2024 Based on last me nstrual period of 07/23/2023 (Exact Date) documented as of this encounter (statuses as of 12/09/2023) Resolved Problems Problem Noted Date Diagnosed Date Resolved Date Heroin abuse 02/27/2021 05/12/2022 Depression 05/16/2020 05/12/2022 Supervision of normal first 05/16/2020 05/16/2020 Tobacco use disorder 05/16/2020 023 Migraine 08/06/2011 05/12/2022 Allergic rhinitis 05/12/2022 Celiac disease 05/12/2022 documented as of this encounter (statuses as of 12/09/2023) Immunizations Name Administration Dates Next Due DTaP [...] money to get more. Never true 11/27/2023 Latimer Depression Scale Answer Date Recorded Latimer Depression Scale Total 0 09/18/2023 The thought [...] encounter Miscellaneous Notes * Telephone Encounter - Francia Salcedo MD - 09/10/2023 4:30 PM EDT Bleeding in early is not uncommon but if pt experience increased bleeding with pelvic pain, she has to come to the hospital for evaluation, pelvic rest and fluids are recommended . * Telephone Encounter - Shavonne Hensley PA-C - 09/09/2023 3:05 PM EDT Done. Thanks! Shavonne Hensley PA-C * Telephone Encounter - Fallon Alexander LPN - 09/09/2023 2:03 PM EDT Maximo Marvin, Please sign pended dating US order for pt. Thanks. documented in this encounter Plan of Treatment Upcoming Encounters Date Type Department Care Team (Late st Contact Info) Description 12/11/2023 2:45 PM EDT Imaging Radiology [facility] [address] [facility] [place] [address] 12/11/2023 4:30 PM EDT Office Visit [facility]necology[facility]st[facility]s [facility] [place] [address] Zena Nicole PA-C [address] [place] [address] 12/16/2023 11:30 AM EDT Office Visit Cardiology, [place] [address] [facility] [place] [address] Aliza Melara PA-C [address] [facility] [place] [address] 01/21/2024 9:30 AM EDT Telemedicine Psychiatry [facility] [address] [place] [address] Clifford Calabrese MD [address] [place] [address] 06/06/2024 5:40 PM EST Office Visit Family Practice [address] [place] [address] Patricia Ta DO [address] [place] [address] Health Maintenance Due Date Last Done Comments HPV (Gardasil) Vaccine (1 - 3-dose series) 2013 COVID-19 Vaccine ( season) 2022 Influenza Vaccine (FLU shot) (#1) [...] filedocumented as of this encounter Results * US PREG SINGLE/1ST GEST, LESS THAN 14 WKS (09/18/2023 1:56 PM EDT) Anatomical Region Laterality Modality Pelvis, Body Ultrasound 09/18/2023 2:38 PM EDT Impressions 09/18/2023 3:10 PM EDT IMPRESSION Single live intrauterine gestation with FARNAZ of 04/26/2024. I have personally reviewed this examination and agree with the resident/fellow physician's interpretation. Narrative 09/18/2023 3:10 PM EDT EXAM US PREG SINGLE/1ST GEST, LESS THAN 14 WKS - 09/18/2023 1:56 pm HISTORY dating COMPARISON Pelvic ultrasound 08/17/2023 TECHNIQUE Transvaginal ultrasound of the pelvis. FINDINGS CROWN RUMP LENGTH: 18.8 mm equivalent to 8w 3d. FARNAZ (CRL): 04/26/2024 HEART RATE: 176 bpm YOLK SAC: Seen MYOMETRIUM: Unremarkable RIGHT OVARY: 2.0 cm x 2.1 cm x 2.6 cm, 5.8 ml. Normal LEFT OVARY: 2.5 cm x 1.7 cm x 1.8 cm, 3.8 ml. Normal MISCELLANEOUS: No significant free fluid. Procedure Note Alysa Sears MD - 09/18/2023 EXAM US PREG SINGLE/1ST GEST, LESS THAN 14 WKS - 09/18/2023 1:56 pm HISTORY dating COMPARISON Pelvic ultrasound 08/17/2023 TECHNIQUE Transvaginal ultrasound of the pelvis. FINDINGS CROWN RUMP LENGTH: 18.8 mm equivalent to 8w 3d. FARNAZ (CRL): 04/26/2024 HEART RATE: 176 bpm YOLK SAC: Seen MYOMETRIUM: Unremarkable RIGHT OVARY: 2.0 cm x 2.1 cm x 2.6 cm, 5.8 ml. Normal LEFT OVARY: 2.5 cm x 1.7 cm x 1.8 cm, 3.8 ml. Normal MISCELLANEOUS: No significant free fluid. IMPRESSION IMPRESSION Single live intrauterine gestation with FARNAZ of 04/26/2024. I have personally reviewed this examination and agree with the resident/fellow physician's interpretation. Shavonne Hensley PA-C RAD ULTRA SOUND documented in this encounter Visit Diagnoses Diagnosis Early stage of - Primary Early stage of documented in this encounter Care Teams Flatcar Whacker Relationship Specialty Start Date End Date Patricia Ta DO [address] [facility] [place] [address] PCP - General Family Medicine 05/12/22 documented as of this encounter
--- OUTSIDE RECORDS SUMMARY | 2024-04-21 08:49 | External Medical Summary ---
Author Name Unknown Address Unknown Organization : Laboratory Report Ordering Provider Test Date Status MAX FREEDMAN 11/27/2023 13:10:47 Final Observation Date Value Abnormality Reference (Units ) Status INTERPRETATION 11/27/2023 13:10:47 SEE BELOW Final Screen negative for open NTD . RISK FOR ONTD 11/27/2023 13:10:47 <1:5000 Final CALC'D GESTATIONAL AGE 0811/27/2023 13:10:47 18.1 Final AFP, SERUM 11/27/2023 13:10:47 46.8 (ng/mL) Final AFP MOM 11/27/2023 13:10:47 1.09 Final Reference Range:
NTD <2 .50
IDD <1.90
TWINS <4.00
TWINS IDD <3.50
TRIPLETS <4.50
The AFP test result indicates that this patient is
screen negative for open NTD. It should be noted
that normal test results can never guarantee the
of a normal baby and that 2-3% of newborns
have some type of physical or mental defect, many
of which are undetectable through any known
diagnostic technique.
This is a screening test, not a diagnostic test.
This risk assessment report is based in part on
demographic data provided by the ordering
physician. Please notify the laboratory promptly
if any data are incorrect. For assistance with
recalculations, please call your local [facility] laboratory. For assistance with
interpretation of these results, please contact
your Local [facility] genetic counselor or
call [phone] ([phone]).
Interpretive Cutoffs
Screen Positive for Open NTD:
> or = 2.50 adjusted MOM
> or = 1.90 adjusted MOM for insulin- dependent diabetics
> or = 4.00 adjusted MOM for twins
> or = 3.50 adjusted MOM for twins insulin-dependent diabetics
> or = 4.50 adjusted MOM for triplets
For additional information, please refer to
[email or web address]
(This link is being provided for
informational/educational purposes only.) DATE OF 11/27/2023 13:10:47 2000 Final COLLECTION DATE 11/27/2023 13:10:47 11/27/2023 Final MATERNAL WEIGHT 11/27/2023 13:10:47 161 (lbs ) Final EST'D DATE OF DELIVERY 11/27/2023 13:10:47 04/28/2024 Final FARNAZ DETERMINED BY 11/27/2023 13:10:47 NG Final MOTHER'S ETHNIC ORIGIN 11/27/2023 13:10:47 WHITE Final NUMBER OF FETUSES 11/27/2023 13:10:47 1 Final INSULIN DEPEND DIABETIC 11/27/2023 13:10:47 NO Final REPEAT SPECIMEN 11/27/2023 13:10:47 NO Final HX OF NEURAL TUBE DEFECTS 11/27/2023 13:10:47 NO Final PREV DOWN SYND 11/27/2023 13:10:47 NO Final DONOR EGG 11/27/2023 13:10:47 NO Final DONOR AGE: EGG RETRIEVAL 11/27/2023 13:10:47 NOT GIVEN Final Test performed by [facility]
[address],
[place] [address]

Director Summer Sessions: Cristina Reich MD,PHD,MERISSA
Test Reported by Joceline Mackey,
[facility],
[address] [place], [place]
Rony Amor M.D., Ph.D., Director of Laboratories
, [place] [id number] Performing Location
--- OUTSIDE RECORDS SUMMARY | 2024-04-21 08:49 | External Medical Summary | Summary of Care ---
Author Name Unknown Organization [facility] Address [address] [place] [address] Phone [phone] Care Team Providers Care Simplex Printer Installer Name Role Phone Patricia Ta DO Primary Care Provider [phone]- [phone] Reason for Referral * Precert (Diagnostic Medical) (Within 10 days (routine)) - Authorized Specialty Diagnoses / Procedures Referred By Contac t Referred To Contact Cardiac Studies Diagnoses Lightheadedness Procedures ECHO, COMPLETE (2D), TRANS-THORACIC Aliza Melara PA-C [address] [facility] [place] [address] Referral ID Status Reason Start Date Expiration Date V isits Requested Visits Authorized [id number] Authorized Precert 12/16/2023 02/14/2024 999 999 Reason for Visit * Reason Comments NEW PATIENT Rm # 2 * Evaluate & Treat - Unlimited Visits (Within 10 days (routine)) - Authorized Specialty Diagnoses / Procedures Referred By Contact Referred To Contact Cardiovascular Medicine / Cardiology Diagnoses Light-headed feeling Abnormal EKG Deb Martinez PA-C [address] [facility] [place] [address] Referral ID Status Reason Start Date Expiration Date Visits Requested Visits Authorized [id number] Authorized Specialty Services Required 12/07/2023 999 999 Encounter Details Date Type Department Care Team (Late st Contact Info) Description 12/16/2023 11:30 AM EDT Office Visit Jair Wolfe [address] [address] Aliza Melara PA-C [address] [place] [address] Lightheadedness* Allergies No known active allergiesdocumented as of this encounter (statuses as of 12/16/2023) Medications Medication Sig Dispensed Refills Start Date [...] as of this encounter (statuses as of 12/16/2023) Active Problems Problem Noted Date Diagnosed Date Marijuana use during 09/22/2023 Overview: Screen positive at [facility]. 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 Never true 11/27/2023 Hammond Depression Scale Answer Date Recorded [place] Depression Scale Total 0 09/18/2023 The thought [...] Reading Time Taken Comments Blood Pressure 108/68 12/16/2023 11:28 AM EDT Pulse 84 12/16/2023 11:28 AM EDT Temperature - - Respiratory Rate - - Oxygen Saturation - - Inhaled Oxygen Concentration - - Weight 77.1 kg (170 lb) 12/16/2023 11:28 AM EDT Height 152.4 cm (5') 12/16/2023 11:28 AM EDT Body Mass Index 33.2 12/16/2023 11:28 AM EDT documented in this encounter Progress Notes * Aliza Melara PA-C - 12/16/2023 11:27 AM EDT [facility] [place], [facility] New Cardiology Patient 12/16/2023 CC: abnormal EKG, lightheaded History of Present Illness: Jesi Coleman is a 23 year old year old female who was referred by Deb Martinez PA-C for abnormal EKG and lightheadedness. Occasionally patient feels like she could pass out. Feels lightheaded and ears ring. Clammy and nauseated. Lightheadedness was present earlier in the . This has since improved with increasing waterintake. Denies LOC. When she is anxious she feels her heart racing. Has been told by doctors in the past she had a murmur and extra heartbeat. Denies chest pain, shortness of breath Walks a lot during the day Water intake: previously drinking 30-40oz. 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 (Smoke daily), no alcohol use REVIEW OF SYSTEMS: See HPI for pertinent positives. All others negative other than those noted in the HPI. CONSTITUTIONAL: No change in weight, No weakness, No fatigue and No fevers, No sweats or chills. PULMONARY: No cough, sputum, or hemoptysis, No wheezing, No shortness or breath and No recent change in breathing. CARDIOVASCULAR: No chest pain, No dyspnea on exertion, No edema, No palpitations and No syncope. GASTROINTESTINAL: No abdominal pain, No change in bowel habits, No significant heartburn, No nausea, No vomiting, No diarrhea, No constipation, No blood in stools or black tarry stools. No dysphagia. HEMATOLOGIC: No abnormal bleeding and No bruising. NEUROLOGICAL: Normal balance, No headaches and No weakness. Past Medical History: Patient Active Problem List Diagnosis NANCY (generalized anxiety disorder) Marijuana use during Past Surgical History: Procedure Laterality Date COLONOSCOPY W/ BIOPSY (RECTUM) 02/03/2012 COLONOSCOPY FLEXIBLE WITH BIOPSY performed by Megan Duran MD at [facility] EGD, FLEXIBLE, DIAGNOSTIC 09/05/2022 reflux esophagitis / ESOPHAGOGASTRODUODENOSCOPY (EGD), FLEXIBLE, TRANSORAL, DIAGNOSTIC performed byJason Paulino MD at ENDOSCOPY [facility] EGD, FLEXIBLE, W/BIOPSY 02/03/2012 UPPER GI ENDOSCOPY WITH BIOPSY SINGLE OR MULTIPLE performed by Megan Duran MD at [facility] [place] CURETTAGE 2020 Family History: Family History Problem Relation Name Age of Onset Mental Disorder Mother Neurological Disorder Mother migraines Other (history of skin cancer) Mother Alcohol and Other Disorders Associated Father Hypertension Father Mental Disorder Sister Depression Sister anxiety Alcohol and Other Disorders Associated Brother Hypertension Grandmother (Maternal) Other (Microscopic colitis) Grandmother (Maternal) Heart attack Grandfather (Maternal) No Known Problems Grandmother (Paternal) No Known Problems Grandfather (Paternal) Other (thyroid disease) Aunt (Unspecified) Other (ulcerative colitis) Uncle (Unspecified) Colon cancer Uncle (Maternal) Mental Disorder Niece Breast Cancer No significant family history Ovarian cancer No significant family history Uterine cancer No significant family history Prostate cancer No significant family history Pancreatic cancer No significant family history Social History: Social History Socioeconomic History Marital status: Single Spouse name: Not on file Number of children: 0 Years of education: Not on file Highest education level: Associate degree: occupational, technical, or vocational program Occupational History 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 No siblings that live with her. She has 2 dogs and 1 cat. She is in the 8thgrade. Social Determinants of Health Financial Resource Strain: Low Risk (11/27/2023) Financial Resource Strain Do you have any trouble paying for your medications, or do you think you might in the future? (Adult - for ages 18 years and over): No Does your family have trouble paying for medicine? (Household - for ages 0-17 years): Not on file Food Insecurity: No Food Insecurity (11/27/2023) Food Insecurity Do you need food for this week? (Adult - for ages 18 years and over): No Are you able to get enough food for your family? (Household - for ages 0-17 years): Not on file Does your family need food this week? (Household - for ages 0-17 years): Not on file Do you always have enough food for your family? (Household - for ages 0-17 years): Not on file Transportation Needs: No Transportation Needs (11/27/2023) Transportation Needs Do you have trouble getting a ride to medical visits or work? (Adult - for ages 18 years and over):Never True Does your family have a hard time getting a ride to doctors visits? (Household - for ages 0-17 years): Not on file Has lack of transportation kept you from medical appointments, meetings, work, or from getting things needed for daily living? Check all that apply. (Adult - for ages 18 years and over): No Do you (or your family) have trouble finding or paying for a ride (transportation)? (Household - for ages 0-17 years): Not on file Social Connections: Socially Integrated (11/27/2023) Social Connections How often do you feel lonely or isolated from those around you? (Adult - for ages 18 years and over): Never Housing Stability: Low Risk (11/27/2023) Housing Stability Do you currently live in a mcc or have no steady place to sleep at night? (Adult - for ages 18 years and over): No Do you think you are at risk of becoming homeless? (Adult - for ages 18 years and over): No Does your family worry about paying for your home or becoming homeless? (Household - for ages 0-17 years): Not on file Are you homeless or worried that you might be in the future? (Adult - for ages 18 years and over): No Are you (or your family) homeless or worried that you might be in the future? (Household - for ages0-17 years): Not on file Allergies: Patient has no known allergies. Medications: Current Outpatient Medications Medication Sig Dispense Refill Vitamin B-6 25 MG Oral Tablet Take by mouth. doxylamine 12.5 MG OR TABS Take 0.5 Tablets by mouth at bedtime as needed. Vitamin and Mineral 28-0.8 MG Oral Tablet Take by mouth. Citalopram Hydrobromide 10 MG Oral Tablet (CeleXA) Take 1 Tablet by mouth in the morning. 30 Tablet2 No current facility-administered medications for this visit. PHYSICAL EXAMINATION: BP 108/68 (BP Site: Left Arm, BP Position: Sitting, BP Cuff Size: Large) | Pulse 84 | Ht 1.524 m (5') | Wt 77.1 kg (170 lb) | LMP 07/23/2023 (Exact Date) | BMI 33.20 kg/m | BSA 1.81 m General: No acute distress. A+Ox3. HEENT: Normocephalic. Atraumatic. PERRL. EOMI. Conjunctiva and sclera clear. NECK: No carotid bruits. No JVD. Carotid upstrokes are brisk. Heart: RRR. S1 and S2 noted. No murmur. No rubs or gallops. PMI non displaced. Lungs: Clear to auscultation. No wheezes.No rhonchi. No rales. Abdomen: Normal bowel sounds. Soft. Nontender. No masses or organomegaly. No abdominal bruits. Extremities: No edema. No clubbing or cyanosis. Pulses: radial=2/4, posterior tibial=2/4, dorsalis pedis = 2/4. NEURO: No focal deficits. PSYCH: Appropriate affect and insight. DATA Labs & Imaging Reviewed Below: EKG 12/04/2023 NSR 76bpm Septal infarct IMPRESSION: 23 year old year old female 21 weeks gestation NANCY Medical marijuana use Reformed tobacco use Reformed drug use RECOMMENDATIONS/PLAN: -Patient with abnormal EKG (nonspecific septal infarct) and lightheadedness likely secondary to dehydration in early -Will order echocardiogram to ensure structurally normal heart -Will place 14 day zio patch to rule out arrhythmias. -Encouraged patient to drink adequate fluids and consume small frequent meals to prevent hypoglycemia -Congratulated patient on being 3 years sober Disposition: F/u PRN The patient agrees to the above plan and will call with additional questions or concerns. All questions were answered to the patients satisfaction. ER with all emergencies advised. Aliza Melara PA-C Cardiology[address] [address] I spent a total of 61 minutes on the date of service in preparation, delivery, and documentation ofthe care provided to Jesi Coleman excluding any time spent in the performance of separately billedservices. This chart was completed in part utilizing [employer] Voice Recognition Software. Grammatical errors, random word insertions, prounoun errors, and incomplete sentences are an occasional consequence of this system due to software limitations, ambient noise, and hardware issues. Any formal questions or concerns about the content, text, or information contained within the body of this dictation should be directly addressed to the provider for clarification. documented in this encounter Nursing Notes * Demetra Cooper, ORALIAAngela - 12/16/2023 11:26 AM EDT Examination Room: 2 Name: Jesi Coleman Date of : (2000). Reason for Visit: new patient per PATENT ENGINEER Interim Hospitalization(s): none recently Problems/Concerns: previous episodes of lightheadedness. No episodes in past 2 weeks. Chest Pain/SOB: no CP or SOB. Medications were updated via: pt memory. My [employer] is a way you can talk to your provider online through e-mail. Would you like to sign up? I can activate it for you? ALREADY ACTIVE Patient was instructed to not get up on the exam table until directed and assisted by their provider; patient is to remain seated in the chair/ wheelchair/ exam table for fall prevention and safety reasons. Patient is aware to have assistance to step down off exam table with personnel. Patient voiced full comprehension of instructions. documented in this encounter Plan of Treatment Upcoming Encounters Date Type Department Care Team (Late st Contact Info) Description 12/16/2023 11:57 AM EDT Hospital Encounter Cardiac Studies, [address] [place] [address] Glh, Aerospace Engineer Officer [employer] [address] [place] [address] Arrived 12/17/2023 12:45 PM EDT Appointment Cardiac Studies, [address] [place] [address] 01/08/2024 1:00 PM EDT Office Visit Gynecology/Obstetrics , [place] [address] [place] [address] Deb Martinez PA-C [address] [place] [address] 01/21/2024 9:30 AM EDT Telemedicine Psychiatry James Carlson [address] [phone] Clifford Calabrese MD [address] [address] 06/06/2024 5:40 PM EST Office Visit Family [facility] [address] [place] [address] Patricia Ta DO [address] [place] [address] Scheduled Orders Name Type Priority Associated Diagnoses Orde r Schedule ECHO, COMPLETE (2D), TRANS-THORACIC Echocardiology Routine Lightheadedness Expected: 12/16/2023, Expires: 06/14/2024 EXTERNAL EKG 8 TO 15 DAYS Holter Routine Lightheadedness Expected: 12/17/2023 (Approximate), Expires: 12/15/2024 Health Maintenance Due Date Last Done Comments HPV (Gardasil) Vaccine (1 - 3-dose series) 2013 COVID-19 Vaccine (2022-24 season) 2023 Influenza Vaccine (FLU shot) (#1) [...] as of this encounter Visit Diagnoses Diagnosis Lightheadedness- Primary Dizziness and giddiness Lightheadedness Dizziness and giddiness documented in this encounter Care Teams Simplex Printer Installer Relationship Specialty Start Date End Date Patricia Ta DO [address] [place] [address] PCP - General Family Medicine 05/12/22 documented as of this encounter"
--- OUTSIDE RECORDS SUMMARY | 2024-04-21 08:49 | External Medical Summary | Summary of Care ---
Author Name Unknown Organization [facility] Address [address] [place] [address] Phone [phone] Care Team Providers Care Personnel Manager Name Role Phone Patricia Ta DO Primary Care Provider +1- [phone] Reason for Visit * Reason Comments Return Visit Encounter Details Date Type Department Care Team (Late st Contact Info) Description 12/11/2023 4:30 PM EDT Office Visit Gynecology/Obstetric s Thom Bonilla [address] [place] [address] Zena Nicole PA-C [address] [place] [address] Marijuana use during * Allergies No known active allergiesdocumented as of this encounter (statuses as of 12/11/2023) Medications Medication Sig Dispensed Refills Start Date [...] as of this encounter (statuses as of 12/11/2023) Active Problems Problem Noted Date Diagnosed Date Marijuana use during 09/22/2023 Overview: Screen positive at [facility]. 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 Never true 11/27/2023 [place] Depression Scale Answer Date Recorded [place] Depression Scale Total 0 09/18/2023 The thought [...] Sign Reading Time Taken Comments Blood Pressure 102/64 12/11/2023 4:19 PM EDT Pulse - - Temperature - - Respiratory Rate - - Oxygen Saturation - - Inhaled Oxygen Concentration - - Weight 75.3 kg (166 lb) 12/11/2023 4:19 PM EDT Height - - Body Mass Index 32.42 09/18/2023 2:09 PM EDT documented in this encounter Progress Notes * Zena Nicole PA-C - 12/11/2023 4:31 PM EDT 20w1d Anatomy complete today, final report pending. Preliminary report reviewed with her. + FHT by ultrasound. Overall doing well. Has appointment with Cardiology scheduled next week d/t septal infarct seen on EKG d/t feeling lightheaded. Pt states feeling well. No current concerns. Plans to follow up. ER precautions. Denies VB, LOF, contractions. + FM. RTC in 4 weeks Zena Nicole PA-C * aKrely Kiser CMA - 12/11/2023 4:19 PM EDT 20w1d Denies any concerns documented in this encounter Plan of Treatment Upcoming Encounters Date Type Department Care Team (Late st Contact Info) Description 12/16/2023 11:30 AM EDT Office Visit Cardiology, [place] [address] [place] [address] Aliza Melara PA-C [address] [place] [address] 01/08/2024 1:00 PM EDT Office Visit Gynecology/Obstetrics, [place] [address] [place] [address] [facility]C [facility] [place] [address] 01/21/2024 9:30 AM EDT Telemedicine Psychiatry James Carlson [address] [phone] Clifford Calabrese MD [address] [place] [address] 06/06/2024 5:40 PM EST Office [address] [facility] [address] [place] [address] Patricia Ta DO [address] [place] [address] Health Maintenance Due Date Last Done Comments [...] Diagnoses Diagnosis Marijuana use during - Primary documented in this encounter Care Teams Personnel Manager Relationship Specialty Start Date End Date Patricia Ta DO [facility] [place] [address] PCP - General Family Medicine 05/12/22 documented as of this encounter
--- OUTSIDE RECORDS SUMMARY | 2024-04-21 08:49 | External Medical Summary | Summary of Care ---
Author Name Unknown Organization [facility] Address [address] [place] [address] Phone [phone] Care Team Providers Care Filter Changer Name Role Phone Patricia Ta DO Primary Care Provider +1- [phone] Reason for Visit * Reason Comments Outpatient Testing Encounter Details Date Type Department Care Team ([facility] st Contact Info) Description 11/27/2023 1:20 PM EDT Laboratory Laboratory [facility] [place] [address] [facility] [place] [id number] [place], Lab [facility] [address] [facility] [place] [id number] 16 weeks gestation of Allergies No known active allergiesdocumented as of this encounter (statuses as of 11/27/2023) Medications Medication Sig Dispensed Refills Start Date [...] as of this encounter (statuses as of 11/27/2023) Active Problems Problem Noted Date Diagnosed Date Marijuana use during 09/22/2023 Overview: Screen positive at [facility]. 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 Never true 11/19/2023 [place] Depression Scale Answer Date Recorded [place] Depression Scale Total 0 09/18/2023 The thought [...] Description 12/11/2023 2:45 PM EDT Imaging Radiology [facility] [address] [place] [address] 12/11/2023 4:30 PM EDT Office Visit Gynecology/Obstetrics [facility] [address] [place] [address] Zena Nicole PA-C [address] [place] [address] 01/21/2024 9:30 AM EDT Telemedicine Psychiatry James Carlson [address] [place] [phone] Clifford Calabrese MD [address] [place] [address] 06/06/2024 5:40 PM EST Office Visit Family Practice [address] [place] [address] Patricia Ta DO [address] [place] [address] Pending Results Name Type Priority Associated Diagnoses Date /Time MATERNAL SERUM AFP Lab Routine 16 weeks gestation of 11/27/2023 1:10 PM EDT Health Maintenance Due Date Last Done [...] as of this encounter Visit Diagnoses Diagnosis 16 weeks gestation of state, incidental documented in this encounter Care Teams Filter Changer Relationship Specialty Start Date End Date Patricia Ta DO [address] [place] [address] PCP - General Family Medicine 05/12/22 documented as of this encounter
--- OUTSIDE RECORDS SUMMARY | 2024-04-21 08:49 | External Medical Summary | Summary of Care ---
Author Name Unknown Organization [facility] Address [address] [place] [address] Phone [phone] Care Team Providers Care Grinder Set Up Operator Thread Name Role Phone Patricia Ta DO Primary Care Provider +1- [phone] Encounter Details Date Type Department Care Team (Latest Contact Info) Description 12/04/2023 12:59 PM EDT - 12/04/2023 11:59 PM EDT Hospital Encounter Cardiac Studies, [facility] [address] [place] [address] Glh, [place] [facility] [address] [place] [address] Discharge Disposition: Home - Self Care Allergies No known active allergiesdocumented as of this encounter (statuses as of 12/05/2023) Medications Medication Sig Dispensed Refills Start Date [...] as of this encounter (statuses as of 12/05/2023) Active Problems Problem Noted Date Diagnosed Date Marijuana use during 09/22/2023 Overview: Screen positive at [facility]. NANCY (generalized anxiety disorder) 11/17/2016 Estimated Date of Delivery Comme nts Yes 04/28/2024 Based on last me nstrual period of 07/23/2023 (Exact Date) documented as of this encounter (statuses as of 12/05/2023) Resolved Problems Problem Noted Date Diagnosed Date Resolved Date Heroin abuse 02/27/2021 05/12/2022 Depression 05/16/2020 05/12/2022 Supervision of normal first 05/16/2020 05/16/2020 Tobacco use disorder 05/16/2020 023 Migraine 08/06/2011 05/12/2022 Allergic rhinitis 05/12/2022 Celiac disease 05/12/2022 documented as of this encounter (statuses as of 12/05/2023) Immunizations Name Administration Dates Next Due DTaP [...] money to get more. Never true 11/27/2023 [place] Depression Scale Answer Date Recorded [place] Depression Scale Total 0 09/18/2023 The thought [...] Description 12/11/2023 2:45 PM EDT Imaging Radiology [facility] [address] [facility] [place] [address] 12/11/2023 4:30 PM EDT Office Visit Gynecology/Obstetrics [facility] [address] [facility] [place] [address] Zena Nicole PA-C [address] [facility] [place] [address] 01/21/2024 9:30 AM EDT Telemedicine Psychiatry James Carlson [address] [place] [phone] Clifford Calabrese MD [address] [place] [address] 06/06/2024 5:40 PM EST Office Visit Family Practice [address] [place], [place] [address] Patricia Ta DO [address] [place] [address] Health Maintenance Due Date Last Done Comments HPV (Gardasil) Vaccine (1 - 3-dose series) 2013 COVID-19 Vaccine ( - 2022- season) 2022 Influenza Vaccine (FLU shot) (#1) [...] as of this encounter Visit Diagnoses Diagnosis Light-headed feeling Dizziness and giddiness documented in this encounter Care Teams Grinder Set Up Operator Thread Relationship Specialty Start Date End Date Patricia Ta DO [address] [place] [address] PCP - General Family Medicine 05/12/22 documented as of this encounter
--- OUTSIDE RECORDS SUMMARY | 2024-04-21 08:49 | External Medical Summary | Summary of Care ---
Author Name Unknown Organization [facility] Address [address] [place] [address] Phone [phone] Care Team Providers Care Candy Cutter Hand Name Role Phone Patricia Ta DO Primary Care Provider +1- [phone] Reason for Visit * Reason Onset Date Comments Med Request 12/01/2023 11/30/Rash Encounter Details Date Type Department Care Team ([facility] st Contact Info) Description 12/01/2023 Telephone Family Practice [place] [address] [place] [address] Patricia Ta DO [address] [place] [address] Med Request (LM 11/30/Rash) Allergies [...] money to get more. Never true 11/27/2023 [place] Depression Scale Answer Date Recorded [place] Depression Scale Total 0 09/18/2023 The thought [...] encounter Miscellaneous Notes * Telephone Encounter - Emperatriz Becerra OSA - 12/01/2023 12:12 PM EDT [...] Description 12/02/2023 3:20 PM EDT Office Visit [place] [address] [place] [address] Noreen Man PAOlamide [address] [place] [address] [place] [address] 12/11/2023 2:45 PM EDT Imaging Radiology [facility] [address] [facility] [place] [address] 12/11/2023 4:30 PM EDT Office Visit Gynecology/Obstetrics [facility] [address] [facility] [place] [address] Zena Nicole PA-C [address] [place] [address] 01/21/2024 9:30 AM EDT Telemedicine Psychiatry James Carlson [address] [place] [phone] Clifford Calabrese MD [address] [place] [address] 06/06/2024 5:40 PM EST Office Visit [facility] [place] [address] [place] [address] Patricia Ta DO [address] [place] [address] Health Maintenance Due Date Last Done Comments [...] filedocumented as of this encounter Care Teams Candy Cutter Hand Relationship Specialty Start Date End Date Patricia Ta DO [address] [facility] [place] [address] PCP - General Family Medicine 05/12/22 documented as of this encounter
[2024-04-21] MEDS: DINOPROSTONE 10 MG INSERT PV ONE (09:16)
[2024-04-21 09:19] LABS: Hematocrit (blood only) 34.5 % (37.0-47.0); Hemoglobin 11.3 g/dl (12.0-16.0); Mean Corpuscular Hemoglobin 27.6 pg (25.0-34.0); Mean Corpuscular Hgb Conc 32.8 g/dL (32.0-36.0); Mean Corpuscular Volume 84.1 fL (80.0-100.0); Mean Platelet Volume 8.1 fL (9.4-12.4); Platelet Count 342 K/uL (130-400); RDW Standard Deviation 45.4 fL (36.4-46.3)
[2024-04-21 09:24] LABS: Amphetamines+Metham, Urine Neg (Neg); Barbiturates, Urine Neg (Neg); Benzodiazepine, Urine Neg (Neg); Cocaine, Urine Neg (Neg); Fentanyl, Urine Neg (Neg); MDMA (Ecstacy), Urine Neg (Neg); Marijuana, Urine Pos (Neg); Methadone, Urine Neg (Neg); Opiate, Urine Neg (Neg); Phencyclidine, Urine Neg (Neg)
--- NOTE | 2024-04-21 09:31 | History & Physical Report ---
Date of Service April 21, 2024 Assessment & Plan (1) Depression: Plan: on citalopram (2) Anxiety: (3) Polyhydramnios affecting in third trimester: Plan: patient is a 23-year-old [id number] at 39 weeks of gestation who was scheduled for induction of labor at term for polyhydramnios, Vital signs stable afebrile, GBS negative, Medical marijuana use during , UDS is positive for that and negative for other drugs, Cervix unfavorable, Unable to tolerate Cervidil for cervical ripening, patient prefers p.o. Cytotec, plan to monitor, start cervical ripening with p.o. Cytotec, All questions were answered. (4) Medical marijuana use: Admission and Anticipated Discharge Date Admission Date: April 21, 2024 History of Present Illness Primary Care Provider: NO PCP Patient is a 23-year-old G1, P0 at 39 weeks of gestation who was scheduled for induction of labor at term for polyhydramnios. It was diagnosed at 34 weeks when LORRAINE was 24 cm and then repeat ultrasound at 37 weeks it was 23 cm. She was screened for gestational diabetes and passed 3-hour Glucola test. she has no complaints other than being nervous about being in the hospital and induction. She denies contractions, leakage of fluid, vaginal bleeding. She reports good movements. She denies medical problems, Except anxiety for which she is on lisinopril 10 mg daily. She was on medical marijuana during and she has a card for it. GBS is negative. Allergies Allergy/AdvReac Type Severity Reaction Status Date / Time No Known Allergies Allergy Verified 08/29/20 03:01 Home Medications Medication Instructions Recorded Confirmed Type citalopram 20 mg tablet 10 mg PO DAILY 08/29/20 04/21/24 History vits no.124-ferrous fum 1 tab PO DAILY 04/21/24 04/21/24 History 27 mg iron-folic acid 800 mcg tablet ( Vitamin) Patient History Medical History Depression Anxiety Surgical History No significant past surgical history Family History (Updated 04/21/24 @ 07:51 by Serina Hanna RN) Other No known health problems Social History (Updated 04/21/24 @ 07:54 by Serina Hanna RN) Smoking Status: Former smoker Hx Alcohol Use: No Hx Substance Use: Yes Prescribed Medications: Marijuana Last Used Substance: Days (ago) Last Used Substance Other:: Patient reports use 2 days ago. Substance Use Type Other:: A few days ago. Preferred Language: Citizen Of [place] Communication Ability: Effective Checkering Machine Adjuster Required: No Beliefs That Will Affect Care: None marital status: Single marital status details: Does not wish to list Current Living Situation: Parent Current Living Situation Comment: Patient lives with parents. current occupational status: employed and student current occupation: [employer] Other Information That Helps Us Care for You: No Feels Safe at Home: Yes Safety Concerns: Feels Safe At This Time Diet: regular Assistive Devices: None OB History 2 spontaneous abortions CREW DIRECTOR History no history of STDs, no history of chlamydia, gonorrhea, herpes Review of Systems as per Subjective / HPI Physical Exam Constitutional: WD/WN, vitals as above well developed, well nourished, + obese and comfortable Genitourinary: normal external appearance OB Exam Abdomen: + vertex Manual OB Exam: + cervical dilation 1 cm, + cervical effacement 60% and + station -2 OB Exam Monitor Tracing: + external uterine monitor used and + category I patient tolerated vaginal exam for cervical check but unable to answered Cervidil due to discomfort. Patient decided to use p.o. Cytotec instead. Results & Data Vital Signs (Past 12 Hours) Vital Signs Temp Pulse Resp BP 04/21/24 07:58 36.7 C 20 04/21/24 07:48 112 H 137/79 Laboratory Results Lab Results 04/21/24 04/21/24 Range/Units 08:45 08:49 WBC 12.20 H (4.8-10.8) K/ul RBC 4.10 L (4.20-5.40) M/uL Hgb 11.3 L (12.0-16.0) g/dl Hct 34.5 L (37.0-47.0) % MCV 84.1 (80.0-100.0) fL MCH 27.6 (25.0-34.0) pg MCHC 32.8 (32.0-36.0) g/dL RDW Std Deviation 45.4 (36.4-46.3) fL RDW Coeff of Allen 15.0 H (11.5-14.5) % Plt Count 342 (130-400) K/uL MPV 8.1 L (9.4-12.4) fL Urine Opiates Screen Neg (Neg) Ur Methadone, Qual Neg (Neg) Urine Fentanyl Screen Neg (Neg) Urine Barbiturates Neg (Neg) Ur Phencyclidine (PCP) Neg (Neg) U Amphetamin/Meth Scrn Neg (Neg) MDMA (Ecstasy) Screen Neg (Neg) U Benzodiazepines Scrn Neg (Neg) Ur Cocaine Metabolite Neg (Neg) U Marijuana (THC) Screen Pos H (Neg) (1) Depression Depression Type: other depression Qualified Code(s): F32.89 - Other specified depressive episodes
[2024-04-21 09:32] LABS: Albumin Globulin Ratio 1.2 (0.9-2); Albumin Level 3.5 gm/dl (3.4-5.0); BUN Creatinine Ratio 10.9 (10-20); Bilirubin,Total 0.4 mg/dl (0.2-1.0); Calcium 8.5 mg/dl (8.6-10.3); Creatinine Clr Calc Pharmacy 152.2 ml/min; Globulin 2.9 gm/dl (2.5-4.0); Potassium 3.6 mmol/L (3.5-5.1); Total Protein 6.4 gm/dl (6.0-8.3)
[2024-04-21] MEDS: miSOPROStoL 50 MCG TAB PO SCH (11:04)
[2024-04-21] MEDS: miSOPROStoL 50 MCG TAB ONE (11:12)
--- NOTE | 2024-04-21 15:10 | Obstetrical Progress Note ---
Date of Service April 21, 2024 Assessment & Plan Admission and Anticipated Discharge Date Admission Date: April 21, 2024 Subjective Patient is reevaluated. She feels well, no complaints she feels mild irregular contractions, they feel like menstrual cramps, night painful. Denies leakage of fluid or vaginal bleeding. She reports good movements.> She ate breakfast and took first dose of Cytotec and ate lunch and now she is due for the second dose. heart rate category 1, toco shows contractions every 2 to 3 minutes, patient does not feel all of them. Continue to monitor and cervical ripening, All questions were answered. Results & Data Vital Signs (Past 12 Hours) Vital Signs Temp Pulse Resp BP 04/21/24 14:34 37.1 C 103 H 20 131/86 04/21/24 10:46 100 H 16 131/71 04/21/24 07:58 36.7 C 20 04/21/24 07:48 112 H 137/79
[2024-04-21] MEDS: SODIUM CHLORIDE 0.9% 1,000 ML IV SCH (17:45)
--- NOTE | 2024-04-21 17:47 | Obstetrical Progress Note ---
Date of Service April 21, 2024 Assessment & Plan Admission and Anticipated Discharge Date Admission Date: April 21, 2024 Subjective patient is related. She could not get the second dose of Cytotec because of too frequent contractions, now she feels more painful, she rates pain 5 out of 10. But she is eating dinner now and does not need pain medication. She denies nausea with them either. Vital signs stable afebrile, heart rate category 1, Contractions every 2 to 4 minutes, Vaginal exam, cervix is 1 to 2 cm, 70% effaced, -2, Continue to monitor closely, start IV fluids. Results & Data Vital Signs (Past 12 Hours) Vital Signs Temp Pulse Resp BP 04/21/24 14:34 37.1 C 103 H 20 131/86 04/21/24 10:46 100 H 16 131/71 04/21/24 07:58 36.7 C 20 04/21/24 07:48 112 H 137/79
[2024-04-21] MEDS: ONDANSETRON INJ 2 MG/ML 2 ML VIAL IV PRN (21:55)
[2024-04-21] MEDS ORDERED: Nursing to Pharmacy Communication SCH (22:30)
[2024-04-21] MEDS: BUTORPHANOL TARTRATE 2 MG/ML VIAL IV PRN (23:08)
[2024-04-22] MEDS ORDERED: LIDOCAINE 2% MPF LOCAL 5 ML VIAL EPI PRN (00:38)
[2024-04-22] MEDS ORDERED: NALOXONE HCL 1 MG in SODIUM CHLORIDE 0.9% 1,000 ML IV PRN (00:38)
[2024-04-22] MEDS ORDERED: BUPIVACAINE 0.25% PF 30 ML VIAL EPI PRN (00:38)
[2024-04-22] MEDS ORDERED: fentaNYL citrate PF 100 MCG/2 ML VIAL EPI PRN (00:38)
[2024-04-22] MEDS ORDERED: ROPIVACAINE 0.5% PF 5 MG/ML 20 ML VIAL EPI PRN (00:38)
[2024-04-22] MEDS ORDERED: SODIUM CHLORIDE 0.9% PF INJ 10 ML VIAL EPI PRN (00:38)
[2024-04-22] MEDS ORDERED: NALOXONE HCL 0.4 MG/1 ML VIAL/CARP IV PRN (00:38)
[2024-04-22] MEDS ORDERED: fentANYL 2 MCG/ML BUPIVacaine 0.125%-NSS 100ML BAG EPI PRN (00:38)
[2024-04-22] MEDS ORDERED: ONDANSETRON INJ 2 MG/ML 2 ML VIAL IV PRN (00:38)
[2024-04-22] MEDS ORDERED: diphenhydrAMINE 50 MG/ML VIAL IV PRN (00:38)
[2024-04-22] MEDS ORDERED: NALBUPHINE HCL INJ 10 MG/ML AMP IV PRN (00:38)
[2024-04-22] MEDS ORDERED: ePHEDrine sulfate 50 MG/ML AMP IV PRN (00:38)
--- NOTE | 2024-04-22 00:40 | Anesthesiology Consultation ---
Date of Service April 22, 2024 Assessment & Plan (1) Encounter for pre-operative examination: Chart Review Chart Review: Patient NOT seen in Pre Admission Testing and Acceptable Risk for Labor Epidural Consults Requested none History Height/Weight Height: 4 ft 11 in Weight: 89.358 kg Allergies Allergy/AdvReac Type Severity Reaction Status Date / Time No Known Allergies Allergy Verified 08/29/20 03:01 Medications Home Medications Medication Instructions Recorded Confirmed Last Taken citalopram 20 mg tablet 10 mg PO DAILY 08/29/20 04/21/24 04/21/24 vits no.124-ferrous fum 1 tab PO DAILY 04/21/24 04/21/24 04/21/24 27 mg iron-folic acid 800 mcg tablet ( Vitamin) Active Medications Generic Name Dose Route Start Last Admin Trade Name Freq PRN Reason Stop Dose Admin Butorphanol Tartrate 1 mg 04/21/24 09:59 04/21/24 23:08 Butorphanol Tartrate 2 Mg/Ml Vial IV 05/21/24 09:58 1 mg Q2H PRN Administration Pain Past Medical History Medical History Depression Anxiety Exercise / Class Metabolic Activity II 4-5 Yardwork/Stairs/Walk up hill Past Family History Family History Other No known health problems Past Surgical History Surgical History History of dilatation and curettage No significant past surgical history Social History Smoking Status: Former smoker tobacco type: cigarettes Hx Alcohol Use: No Hx Substance Use: Yes substance use type: marijuana Substance Use Type Other:: A few days ago. Last Used Substance: Days (ago) Last Used Substance Other:: Patient reports use 2 days ago. Physical Exam Vital Signs Last Vital Signs Temp 36.5 C 04/21/24 23:11 Pulse 91 H 04/22/24 01:11 Resp 18 04/21/24 23:11 BP 142/81 H 04/22/24 01:11 Pulse Ox 99 04/22/24 01:08 Testing Laboratory Results 04/21/24 08:49 04/21/24 08:49 Blood Type O Positive 01/09/25 08:49 Antibody Screen NEGATIVE 04/21/24 08:49
[2024-04-22] MEDS: SODIUM CHLORIDE 0.9% 1,000 ML IV ONE (00:45)
[2024-04-22] MEDS: BUPIVACAINE 0.25% PF 30 ML VIAL ONE (00:59)
[2024-04-22] MEDS: fentaNYL citrate PF 100 MCG/2 ML VIAL ONE (00:59)
[2024-04-22] MEDS: LIDOCAINE 2%/EPINEPHRINE 1:200,000 20 ML PF ONE (01:13)
[2024-04-22] MEDS: SODIUM CHLORIDE 0.9% PF INJ 10 ML VIAL ONE (01:14)
[2024-04-22] MEDS: fentANYL 2 MCG/ML BUPIVacaine 0.125%-NSS 100ML BAG ONE (01:14)
[2024-04-22] MEDS: fentaNYL citrate PF 100 MCG/2 ML VIAL EPI STA (01:14)
[2024-04-22] MEDS: BUPIVACAINE 0.25% PF 30 ML VIAL EPI STA (01:14)
[2024-04-22] MEDS: LIDOCAINE 2%/EPINEPHRINE 1:200,000 20 ML PF EPI STA (01:15)
[2024-04-22] MEDS: SODIUM CHLORIDE 0.9% PF INJ 10 ML VIAL EPI STA (01:15)
[2024-04-22] MEDS ORDERED: SODIUM CHLORIDE 0.9% 500 ML IV ONE (01:22)
[2024-04-22] MEDS: SODIUM CHLORIDE 0.9% 1,000 ML IV SCH (01:35)
[2024-04-22] MEDS: ePHEDrine sulfate 50 MG/ML AMP ONE (03:01)
[2024-04-22] MEDS: miSOPROStoL 50 MCG TAB PO SCH (03:01)
[2024-04-22] MEDS: OXYTOCIN 30 UNITS/NSS 30 UNITS/500 ML BAG IV PRN (03:45)
--- NOTE | 2024-04-22 05:03 | Anesthesia Procedure Note ---
Date of Service April 22, 2024 Anesthesia Epidural Re-Dose Vital Signs Temp Pulse Resp BP Pulse Ox 36.5 C 88 18 126/60 97 04/21/24 23:11 04/22/24 04:58 04/21/24 23:11 04/22/24 04:53 04/22/24 04:58 Notes Pain Intensity: 7 Dilatation (cm): 10.0 Effacement (%): 100 Called by nursing to evaluate epidural as the patient is having increased pain. The epidural was re-dosed with the following medications (all medications via epidural route) after negative aspiration of the epidural catheter for CSF/HEME. 4ml of 2% LIdocaine with 4ml 0.5% ropivicaine in divided doses. After Epidural Re-Dose Mental Status: alert / awake / arousable Pain: improving with treatment Airway Patency, RR, SpO2: stable & adequate BP & HR: stable & adequate
--- NOTE | 2024-04-22 05:32 | Obstetrical Progress Note ---
Date of Service April 22, 2024 Assessment & Plan Admission and Anticipated Discharge Date Admission Date: April 21, 2024 Subjective Late entry from 21:40 last night She was unable to get 2nd dose of Misoprostol due to frequent contractions. She ambulated and recevied the dose at 22 :00, started to have contractions q 1- 2 min. She then get painful and received epidural for pain. Epidural was working until recently when she was found to be fully dilated at 04:42 by her nurse. She has not had gush of fluid. Now she had epidural bolus and getting better pain control. Head is at +2 station. Patient desires to rest for a while before she would start pushing. Bed side US: head is low in pelvis, AC and FL measuring 37+ weeks Large pockets of amniotic fluids on upper posterior uterus, 6 cm 8 cm FHR categ I Continue to monitor closely. Results & Data Vital Signs (Past 12 Hours) Vital Signs Temp Pulse Resp BP Pulse Ox 04/22/24 05:28 104 H 97 04/22/24 05:23 116 H 96 04/22/24 05:22 86 139/77 04/22/24 05:18 103 H 97 04/22/24 05:13 114 H 97 04/22/24 05:08 100 H 135/72 97 04/22/24 05:03 113 H 96 04/22/24 04:58 88 97 04/22/24 04:53 108 H 126/60 98 04/22/24 04:49 100 H 165/78 H 04/22/24 04:48 99 H 95 04/22/24 04:43 99 H 95 04/22/24 04:38 105 H 95 04/22/24 04:37 107 H 91 04/22/24 04:33 97 H 98 04/22/24 04:29 104 H 94 04/22/24 04:28 101 H 97 04/22/24 04:23 100 H 134/88 98 04/22/24 04:18 102 H 97 04/22/24 04:13 100 H 96 04/22/24 04:10 99 H 93 04/22/24 04:08 93 H 97 04/22/24 04:06 88 152/99 H 04/22/24 04:04 98 H 148/97 H 04/22/24 04:03 107 H 98 04/22/24 04:01 85 142/96 H 04/22/24 04:00 92 H 92 04/22/24 03:58 93 H 152/94 H 98 04/22/24 03:53 90 98 04/22/24 03:48 82 97 04/22/24 03:44 83 141/87 H 04/22/24 03:43 84 97 04/22/24 03:41 16 04/22/24 03:41 36.7 C 16 04/22/24 03:38 88 97 04/22/24 03:33 88 98 04/22/24 03:29 78 128/71 04/22/24 03:28 81 97 04/22/24 03:23 84 96 04/22/24 03:18 78 96 04/22/24 03:17 79 94 04/22/24 03:15 78 107/59 L 04/22/24 03:13 80 95 04/22/24 03:08 82 95 04/22/24 03:03 80 95 04/22/24 03:00 80 105/60 04/22/24 02:58 82 95 04/22/24 02:53 83 96 04/22/24 02:48 85 96 04/22/24 02:44 79 108/63 04/22/24 02:43 80 96 04/22/24 02:38 77 98 04/22/24 02:33 82 96 04/22/24 02:29 76 133/82 04/22/24 02:28 75 97 04/22/24 02:23 81 96 04/22/24 02:18 78 97 04/22/24 02:15 79 130/78 04/22/24 02:13 83 98 04/22/24 02:08 80 98 04/22/24 02:03 83 98 04/22/24 01:59 86 143/82 H 04/22/24 01:58 88 98 04/22/24 01:53 85 98 04/22/24 01:48 85 98 04/22/24 01:43 84 98 04/22/24 01:39 85 143/74 H 04/22/24 01:38 79 97 04/22/24 01:37 84 143/71 H 04/22/24 01:35 85 140/64 04/22/24 01:33 96 04/22/24 01:33 92 H 04/22/24 01:33 85 146/72 H 04/22/24 01:31 82 155/74 H 04/22/24 01:29 86 154/69 H 04/22/24 01:28 91 H 96 04/22/24 01:27 83 111/57 L 04/22/24 01:25 90 124/58 L 04/22/24 01:23 97 04/22/24 01:23 84 04/22/24 01:23 86 116/56 L 93 04/22/24 01:21 90 125/76 04/22/24 01:19 87 124/71 04/22/24 01:18 87 97 04/22/24 01:17 89 123/63 04/22/24 01:15 84 123/59 L 04/22/24 01:13 87 124/70 96 04/22/24 01:11 91 H 142/81 H 04/22/24 01:08 95 H 99 04/22/24 00:52 103 H 141/90 H 04/21/24 23:43 76 117/82 04/21/24 23:12 91 H 130/71 04/21/24 23:11 18 04/21/24 23:11 36.5 C 18 04/21/24 19:30 16 04/21/24 19:30 36.5 C 16 04/21/24 19:29 92 H 133/84
[2024-04-22] MEDS ORDERED: OXYTOCIN 30 UNITS/NSS 30 UNITS/500 ML BAG IV PRN (07:48)
[2024-04-22] MEDS ORDERED: ACETAMINOPHEN 325 MG TAB PO PRN (07:48)
[2024-04-22] MEDS ORDERED: bisacodyL 10 MG SUPP PR PRN (07:48)
[2024-04-22] MEDS ORDERED: oxyCODONE/ACETAMINOPHEN 5mg/325mg TAB PO PRN (07:48)
[2024-04-22] MEDS ORDERED: HYDROCORTISONE ACETATE 25 MG SUPP PR PRN (07:48)
--- NOTE | 2024-04-22 07:56 | Delivery Summary ---
Vaginal Delivery Summary Date of Service April 22, 2024 Vaginal Delivery Summary Patient was found to be fully dilated and desires to push. She pushed for about 24 min and delivered the head and then shoulders with minimal traction at 07:11. The baby was handed off to the mother. The cord was clampedx2 and cut at 1 minute. The vagina and perineum were checked and found to have partial 3rd degree perineal laceration. Rectal exam was done and noted partial sphincter tone. The gloves were changes. external sphincter muscles were held with Allis clamps brought to the midline and repaired with 2-0 Vicryl with figure of 8 stitches timesx 2. Then there is clamps were removed and the rest of the muscles around the sphincter were reapproximated with same suture. Rectal exam was repeated and good sphincter tone integrity was noted no sutures were felt. Gloves were changed and with another sterile 2-0 Vicryl the vaginal mucosa was repaired on a continuous fashion and skin on subcuticular fashion. The placenta was delivered spontaneously as intact and complete. The uterus was explored and found to be empty. QBL was 766 ml. The fundus was firm The baby was a viable female infant, Apgars 8/9, the weight is pending The mother and the baby tolerated the procedure well. No complications happened and I was present during whole procedure.
[2024-04-22] MEDS: LIDOCAINE 1% LOCAL 20 ML VIAL INFIL PRN (07:58)
[2024-04-22] MEDS: METHYLERGONOVINE MALEATE 0.2 MG/ML AMP ONE (07:58)
[2024-04-22] MEDS: SODIUM CHLORIDE 0.9% 500 ML IV SCH (08:30)
[2024-04-22] MEDS: METHYLERGONOVINE MALEATE 0.2 MG/ML AMP IM ONE (08:31)
--- NOTE | 2024-04-22 08:47 | Anesthesia Procedure Note ---
Date of Service April 22, 2024 Anesthesia Post Epidural Note Vital Signs Vital Signs: Temp Pulse Resp BP Pulse Ox 97.9 F 99 H 16 129/68 99 04/22/24 08:20 04/22/24 08:43 04/22/24 03:41 04/22/24 08:38 04/22/24 08:43 Pain Intensity Abdomen: Pain Intensity: 0 Notes Mental Status: alert / awake / arousable and participated in evaluation Nausea / Vomiting: adequately controlled Pain: adequately controlled Airway Patency, RR, SpO2: stable & adequate BP & HR: stable & adequate Hydration State: stable & adequate Neuraxial Anesthesia: was administered and sensory block is resolving Anesthetic Complications: no major complications apparent and Pt Satisfied with anesthetic care Epidural: Removed without complications and With tip intact
[2024-04-22] MEDS: PRENATAL VITAMIN 1 TAB PO SCH (08:50)
[2024-04-22] MEDS: ACETAMINOPHEN 325 MG TAB PO PRN (08:50)
[2024-04-22] MEDS: IBUPROFEN 600 MG TAB PO PRN (08:50)
[2024-04-22] MEDS: FERROUS SULFATE 325 MG TAB PO SCH (08:50)
[2024-04-22] MEDS: DOCUSATE SODIUM 100 MG CAP PO SCH (08:50)
[2024-04-22] MEDS: ceFAZolin 2000MG 2,000 MG/15 ML SYR IV STA (09:01)
[2024-04-22] MEDS: DIPHTHER/TETAN/PERTUS Vaccine (Tdap, Adol/Adult) 0.5mL IM ONE (10:43)
[2024-04-22] MEDS: MEASLES, MUMPS & RUBELLA VIRUS VACCINE (MMR) 0.5ML VIAL SQ ONE (10:44)
[2024-04-22] MEDS ORDERED: Nursing to Pharmacy Communication SCH (11:00)
[2024-04-22] MEDS: ESCITALOPRAM OXALATE 10 MG TAB PO SCH (11:00)
[2024-04-22 12:00] LABS: Basophils # (auto) 0.05 K/uL (0.00-0.20); Basophils % (auto) 0.3 %; Hematocrit (blood only) 28.1 % (37.0-47.0); Hemoglobin 9.2 g/dl (12.0-16.0); Immature Granulocytes # (auto) 0.16 K/uL (0.01-0.20); Immature Granulocytes % (auto) 0.8 %; Lymphocytes # (auto) 1.67 K/uL (1.20-3.40); Lymphocytes % (auto) 8.6 %; Mean Corpuscular Hemoglobin 27.5 pg (25.0-34.0); Mean Corpuscular Hgb Conc 32.7 g/dL (32.0-36.0); Mean Corpuscular Volume 84.1 fL (80.0-100.0); Mean Platelet Volume 8.2 fL (9.4-12.4); Monocytes # (auto) 2.15 K/uL (0.11-0.59); Monocytes % (auto) 11.1 %; Neutrophils % (auto) 79.2 %; Platelet Count 295 K/uL (130-400); RDW Coefficient of Variation 14.9 % (11.5-14.5); RDW Standard Deviation 45.8 fL (36.4-46.3); Red Blood Count 3.34 M/uL (4.20-5.40); White Blood Count 19.43 K/ul (4.8-10.8)
[2024-04-22] MEDS: POLYETHYLENE (MIRALAX) 17 GM PACK PO SCH (12:14)
[2024-04-22 12:21] LABS: Partial Thromboplastin Ratio 1.1; Partial Thromboplastin Time 30 Seconds (21-31); Prothrombin Time 10.5 Seconds (9.0-12.0)
[2024-04-22] MEDS: bisacodyL 5 MG TABEC PO SCH (20:27)
--- NOTE | 2024-04-23 07:41 | Obstetrical Progress Note ---
Date of Service April 23, 2024 Subjective Ambulation: ambulating normally Voiding: no voiding problems Passing Gas:: Yes Diet Tolerance:: regular diet Lochia:: Small Feeding Type:: breast feeding Current Pain Level(1-10): 0 doing well. plans for d/c today. Physical Exam Constitutional WD/WN, vitals as above Eyes PERRL, conjunctivae normal, anicteric sclerae Gastrointestinal (Abdomen) Inspection/Auscultation: abdomen normal to inspection abdomen soft and non-tender. fundus firm below U. Musculoskeletal Extremities: extremities normal to inspection Skin no rashes, warm and dry Psychiatric A+Ox3, euthymic affect Results & Data Vital Signs (Past 12 Hours) Vital Signs Temp Pulse Resp BP Pulse Ox O2 Del Method 04/23/24 03:01 37.2 C 97 H 18 121/80 97 Room Air 04/22/24 23:32 36.4 C L 90 18 114/71 97 Room Air Laboratory Results Laboratory Results - last 48 hr 04/21/24 04/21/24 04/22/24 08:45 08:49 11:35 WBC 12.20 H 19.43 H RBC 4.10 L 3.34 L Hgb 11.3 L 9.2 L Hct 34.5 L 28.1 L MCV 84.1 84.1 MCH 27.6 27.5 MCHC 32.8 32.7 RDW Std Deviation 45.4 45.8 RDW Coeff of Allen 15.0 H 14.9 H Plt Count 342 295 MPV 8.1 L 8.2 L Immature Gran % (Auto) 0.8 Neut % (Auto) 79.2 Lymph % (Auto) 8.6 [place] % (Auto) 11.1 Eos % (Auto) 0.0 Baso % (Auto) 0.3 Neut # (Auto) 15.40 H Lymph # (Auto) 1.67 [place] # (Auto) 2.15 H Eos # (Auto) 0.00 Baso # (Auto) 0.05 Immature Gran # (Auto) 0.16 PT 10.5 INR 1.0 APTT 30 PTT Ratio 1.1 Sodium 137 Potassium 3.6 Chloride 108 H Carbon Dioxide 20 L Anion Gap 9 BUN 6 Creatinine 0.55 L Est Cr Clr Drug Dosing 152.2 eGFR 130.37 BUN/Creatinine Ratio 10.9 Glucose 95 Calcium 8.5 L Total Bilirubin 0.4 AST 16 ALT 10 Alkaline Phosphatase 265 H Total Protein 6.4 Albumin 3.5 Globulin 2.9 Albumin/Globulin Ratio 1.2 Urine Opiates Screen Neg Ur Methadone, Qual Neg Urine Fentanyl Screen Neg Urine Barbiturates Neg Ur Phencyclidine (PCP) Neg U Amphetamin/Meth Scrn Neg MDMA (Ecstasy) Screen Neg U Benzodiazepines Scrn Neg Ur Cocaine Metabolite Neg U Marijuana (THC) Screen Pos H Treponema pallidum Ab Negative Blood Type O Positive Antibody Screen NEGATIVE
[2024-04-23 07:53] LABS: Hematocrit (blood only) 24.4 % (37.0-47.0); Hemoglobin 7.9 g/dl (12.0-16.0); Mean Corpuscular Hemoglobin 27.5 pg (25.0-34.0); Mean Corpuscular Hgb Conc 32.4 g/dL (32.0-36.0); Mean Platelet Volume 8.1 fL (9.4-12.4); Platelet Count 314 K/uL (130-400); RDW Coefficient of Variation 15.4 % (11.5-14.5); RDW Standard Deviation 46.9 fL (36.4-46.3); Red Blood Count 2.87 M/uL (4.20-5.40); White Blood Count 20.27 K/ul (4.8-10.8)
[2024-04-23 08:48] LABS: Fibrinogen 460 mg/dl (184-400)
[2024-04-23] MEDS: BENZOCAINE 20% SPRY 85 APPLN/85 GM CAN EXT PRN (08:59)
[2024-04-23] MEDS: IRON SUCROSE 200 MG in SODIUM CHLORIDE 0.9% 100 ML IV ONE (10:40)
[2024-04-23 10:56] VITALS: BP 120/77; PULSE 97; RESP 16; TEMP 98.2; O2SAT 97
[2024-04-23 17:48] LABS: Marijuana Quant, GCMS Urine 54 ng/mL (<5)
== END 2024-04-23 13:30 | disposition home or self-care (01) | DRG 768 ==
LOC: 4S1 07:40 → 4E2 04-22 15:12